=== PATIENT | male | born 1950 | race Caucasian/White ===

== ENCOUNTER 2023-06-03 10:51 | Observation (INO) ==
[2023-06-03] MEDS ORDERED: SODIUM CHLORIDE 0.9% 500 ML IV STA (11:11)
--- NOTE | 2023-06-03 11:16 | Emergency Department Note ---
Impression & Plan Syncope and collapse ADMIT ED Provider Note HPI: History obtained from The patient is a 73-year-old gentleman who presents emergency department after syncopal event. Patient states that he has a history of syncope dating back over a year, he states that oftentimes stimulus such as a cough will incite a syncopal event. Patient states that recently he has had a cold and has been suffering more of these events over the past several weeks. Patient states this morning when he awoke he sat at the side of his bed and coughed several times and then lost consciousness and woke up in bed. Patient states that his syncopal events are often incited by cough, he states he is actually also had them without any type of inciting cough. Patient states that he has fallen multiple times in the past because of this. Patient states that he decided to come in today because it was not going away. On arrival here to the ED the patient is hemodynamically stable, he is in no acute distress on my initial assessment. He denies any chest pain or shortness of breath. ROS: - Per HPI Differential Diagnosis: Arrhythmia to include SVT, atrial fibrillation with RVR, ventricular tachycardia, high degree heart block, sinus arrest, vasovagal event, acute coronary syndrome, amongst other potential pathologies. *Outpatient medications and allergy history reviewed. PE: General: Alert HEENT: Normocephalic, trachea midline, mild left orbital swelling with overlying abrasion without any active bleeding Eyes: Extraocular eye movement is intact, no scleral erythema Pulmonary: Clear to auscultation bilaterally, no wheezing Cardio: Regular rate and rhythm GI: Abdomen is soft to palpation : No suprapubic tenderness MSK: No evidence of trauma or malformation of the extremities, no edema Skin: No evidence of rash Neuro: Alert, no focal deficits Psychiatric: Cooperative INDEPENDENT INTERPRETATIONS: cafeteria monitor: (As interpreted by myself): - An order was placed for continuous cardiac monitoring - Patient was noted to be in sinus rhythm with a rate of 65 EKG: (As interpreted by myself): Rate: 67 Rhythm: Sinus rhythm Intervals: PA interval prolonged at 226 ms, otherwise within normal limits ST changes: No ST elevation Time: 1137 Chest x-ray: (As interpreted by myself): No acute disease Interventions provided in ED: -IV fluid bolus Medical Decision Making: Shortly after the patient arrived IV was established and lab work obtained, patient was placed on ekg monitor. Lab work shows leukopenia at 2.94 and anemia with hemoglobin of 8.7. MCV is elevated at 112. Total absolute neutrophil count is 0.97. CMP shows a mild hyponatremia at 134, troponin is negative, no critical electrolyte abnormalities are noted. Viral panel testing is negative. Chest x-ray does not show any evidence of acute pneumonia per my interpretation. CT imaging of the head was obtained that does not show any evidence of any acute process. On my reassessment the patient appears well, given the increasing frequency of his syncopal events I did discuss the case with on-call cardiology for [facility], Dr. Vila, who is in agreement for routine consultation for further workup of the patient's high risk syncope. Patient does state history of coronary artery disease. Patient will also require further workup in regards to macrocytic anemia and leukopenia with neutropenia noted on lab work today. Case and lab work findings were then discussed with the on-call midlevel provider for [facility], Mona Dewitt PA-C, and the patient was placed for admission to the [facility] hospitalist service in stable condition for further management. Consultants/Discussions held with other healthcare providers: -Mona Dewitt PA-C, Hospitalist Service Disposition discussion held by myself with: -Patient Diagnosis: 1. Syncope and collapse, acute 2. Anemia, acute, macrocytic 3. Leukopenia, acute Disposition: ADMIT Rhett Freeman DO Emergency Medicine Past Med/Surg History Medical History (Updated 06/03/23 @ 15:50 by Rhett Freeman DO) CAD (coronary artery disease) Heart attack Surgical History (Updated 05/16/18 @ 11:03 by Ignacio Pisano) History of heart bypass surgery Family History (Updated 06/03/23 @ 14:02 by Rachelle Dewitt PA-C) Father Cancer Colonic polyp Heart disease Social History (Updated 06/03/23 @ 14:02 by Rachelle Dewitt PA-C) Smoking Status: Current every day smoker Hx Alcohol Use: Yes Hx Substance Use: No Feels Safe at Home: Yes Allergies Allergies Allergy/AdvReac Type Severity Reaction Status Date / Time fluvastatin [From Lescol] AdvReac Joint Pain Unverified 05/16/18 12:06 simvastatin [From Zocor] AdvReac Joint Pain Unverified 05/16/18 12:06 Home Meds Home Medications Medication Instructions Recorded Confirmed clopidogrel 75 mg tablet 75 mg PO DAILY 05/16/18 06/03/23 latanoprost 0.005 % eye drops 1 drp ophthalmic (eye) PM 05/16/18 06/03/23 multivitamin 1 tab PO DAILY 05/16/18 06/03/23 rosuvastatin 20 mg tablet 20 mg PO DAILY 05/16/18 06/03/23 amiodarone 200 mg tablet 200 mg PO BID 06/03/23 06/03/23 carvedilol 3.125 mg tablet 3.125 mg PO BID 06/03/23 06/03/23 etodolac 400 mg tablet 400 mg PO BID PRN Other 06/03/23 06/03/23 isosorbide mononitrate 30 mg 30 mg PO DAILY 06/03/23 06/03/23 tablet,extended release 24 hr sildenafil 50 mg tablet 10 mg PO DAILY PRN Other 06/03/23 06/03/23 venlafaxine 150 mg 150 mg PO DAILY 06/03/23 06/03/23 capsule,extended release 24 hr Results & Data (ED) Vital Signs Vital Signs - 24 hr 06/03/23 11:05 06/03/23 11:46 06/03/23 11:50 Temperature 36.4 C L Temperature Source Temporal Artery Scan Pulse Rate 67 62 63 Respiratory Rate 19 12 19 Respiratory Effort / Characteristics Non-Labored Spontaneous Respiratory Depth Normal Blood Pressure 138/58 L 140/62 Blood Pressure Mean 84 88 Pulse Oximetry 98 98 97 Oxygen Delivery Method Room Air Room Air Room Air Sepsis Recent Fever Within 48 Hours No Sepsis New/Unexplained Change in Mental Status No Sepsis Action Taken by Nursing No Action Required 06/03/23 12:30 06/03/23 13:01 Temperature Temperature Source Pulse Rate 64 63 Respiratory Rate 22 18 Respiratory Effort / Characteristics Respiratory Depth Blood Pressure 145/61 H 135/58 L Blood Pressure Mean 118 107 Pulse Oximetry 98 98 Oxygen Delivery Method Room Air Sepsis Recent Fever Within 48 Hours Sepsis New/Unexplained Change in Mental Status Sepsis Action Taken by Nursing Laboratory Data 06/03/23 11:50 06/03/23 11:50 Lab Results 06/03/23 Range/Units 11:50 WBC 2.94 L (4.8-10.8) K/ul RBC 2.17 L (4.70-6.10) M/uL Hgb 8.7 L (14.0-18.0) g/dl Hct 24.3 L (42.0-52.0) % MCV 112.0 H (80.0-100.0) fL MCH 40.1 H (25.0-34.0) pg MCHC 35.8 (32.0-36.0) g/dL RDW Std Deviation 66.9 H (36.4-46.3) fL RDW Coeff of Alejandro 16.5 H (11.5-14.5) % Plt Count 199 (130-400) K/uL MPV 11.4 (9.4-12.4) fL Absolute Nucleated RBC 0.02 (0.00-0.12) K/uL Nucleated RBC % (auto) 0.7 % Neutrophils % (Manual) 33 % Lymphocytes % (Manual) 36 % Monocytes % (Manual) 29 % Eosinophils % (Manual) 2 % Neutrophils # (Manual) 0.97 L (1.40-6.50) K/uL Total Absolute Neuts 0.97 L* (1.4-6.5) K/uL Lymphocytes # (Manual) 1.06 L (1.2-3.4) K/uL Total Abs Lymphocytes 1.06 L (1.2-3.4) K/uL Monocytes # (Manual) 0.85 H (0.11-0.59) K/uL Eosinophils # (Manual) 0.06 (0-0.50) K/uL Blood Smear Review Polychromasia 1+ Macrocytosis Present Tear Drop Cells Occasional PT Cancelled INR Cancelled Sodium 134 L (136-145) mmol/L Potassium 4.7 (3.5-5.1) mmol/L Chloride 101 (98-107) mmol/L Carbon Dioxide 25 (21-32) mmol/L Anion Gap 8 (3-11) BUN 19 (6-23) mg/dl Creatinine 1.15 (0.6-1.4) mg/dl Est Cr Clr Drug Dosing 64.3 ml/min Est GFR ( Amer) 72.8 ml/min Est GFR (Non-Af Amer) 62.8 ml/min BUN/Creatinine Ratio 16.5 (10-20) Glucose 81 (70-99(Fasting)) mg/dl Calcium 8.8 (8.6-10.3) mg/dl Magnesium 2.1 (1.7-2.4) mg/dl Total Bilirubin 0.3 (0.2-1.0) mg/dl AST 29 (13-39) U/L ALT 27 (7-52) U/L Alkaline Phosphatase 57 (34-104) U/L Troponin I High Sens 8.9 (0-20) pg/ml Total Protein 7.5 (6.0-8.3) gm/dl Albumin 4.2 (3.4-5.0) gm/dl Globulin 3.3 (2.5-4.0) gm/dl Albumin/Globulin Ratio 1.3 (0.9-2) Lipase 28 (11-82) U/L Adenovirus (PCR) Not Detected (NotDetected) B. pertussis DNA (PCR) Not Detected (NotDetected) B.parapertussis DNA PCR Not Detected (NotDetected) C. pneumoniae DNA (PCR) Not Detected (NotDetected) Coronavirus OC43 (PCR) Not Detected (NotDetected) Coronavirus HKU1 (PCR) Not Detected (NotDetected) Coronavirus 229E (PCR) Not Detected (NotDetected) SARS-CoV-2 (PCR) Not Detected (NotDetected) Coronavirus NL63 (PCR) Not Detected (NotDetected) Human Metapneumovir PCR Not Detected (NotDetected) Influenza Type A (PCR) Not Detected (NotDetected) Influenza Type B (PCR) Not Detected (NotDetected) M. pneumoniae (PCR) Not Detected (NotDetected) Parainfluenza 1 (PCR) Not Detected (NotDetected) Parainfluenza 2 (PCR) Not Detected (NotDetected) Parainfluenza 3 (PCR) Not Detected (NotDetected) Parainfluenza 4 (PCR) Not Detected (NotDetected) RSV (PCR) Not Detected (NotDetected) Entero/Rhino (PCR) Not Detected (NotDetected) Administered Medications Discontinued Medications Sodium Chloride (Nss) 500 mls @ 999 mls/hr IV .Q31M STA Stop: 06/03/23 11:41 Last Infusion: 06/03/23 12:25 Dose: Infused Documented By: Admin: 06/03/23 11:59 Dose: 999 mls/hr Documented By: JAVIER Imaging Data Radiologist's Impression: Chest X-Ray 06/03/23 11:11 XR chest 1V portable HISTORY: 73 years-old Male Chest pain, nonspecific COMPARISON: 05/16/2018 TECHNIQUE: AP view the chest FINDINGS: Cardiac silhouette is enlarged. Median sternotomy. No pneumothorax, pleural effusion or airspace consolidation. Degenerative changes of the shoulders and spine. IMPRESSION: Cardiomegaly without acute process. ACT 112: Negative or not required by law. The above report was generated using voice recognition software. It may contain grammatical, syntax or spelling errors. Electronically signed by: Jay Vasquez M.D. 06/03/2023 11:[address] 06/03/23 11:12 CT head/brain wo con CLINICAL HISTORY: 73 years-old Male with Fall, hit head, on OAC. Acute head trauma status post fall TECHNIQUE: Multiple axial CT images of the head were obtained without contrast. A dose lowering technique was utilized adhering to the principles of ALARA. CT DOSE: 625.8 mGy.cm COMPARISON: Head CT 05/16/2018 FINDINGS: No acute intracranial hemorrhage, midline shift, intracranial mass, hydrocephalus, territorial ischemia or abnormal extra-axial collection. Involutional changes with chronic microvascular ischemic disease. Cerebrovascular calcifications. The calvarium is intact. Prior bilateral lens repair. The paranasal sinuses, mastoid air cells, and middle ear cavities are clear. IMPRESSION: No acute intracranial abnormality or calvarial fracture. ACT 112: Negative or not required by law. The above report was generated using voice recognition software. It may contain grammatical, syntax or spelling errors. Electronically signed by: Jay Vasquez M.D. 06/03/2023 11:37 AM Discharge Plan Visit Data Chief Complaint: Illness Stated Complaint: COUGHING, SYNCOPE ED Provider: Rhett Freeman Discharge Problem: Syncope and collapse Patient Disposition: Admitted As Inpatient Discharge Instructions Interventions: ED Discharge Assessment Last Done: 06/03/23 15:36
--- NOTE | 2023-06-03 11:38 | CT Scan Report ---
CT head/brain wo con CLINICAL HISTORY: 73 years-old Male with Fall, hit head, on OAC. Acute head trauma status post fall TECHNIQUE: Multiple axial CT images of the head were obtained without contrast. A dose lowering tech nique was utilized adhering to the principles of ALARA. CT DOSE: 625.8 mGy.cm COMPARISON: Head CT 05/16/2018 FINDINGS: No acute intracranial hemorrhage, midline shift, intracranial mass, hydrocephalus, territorial ischem ia or abnormal extra-axial collection. Involutional changes with chronic microvascular ischemic disea se. Cerebrovascular calcifications. The calvarium is intact. Prior bilateral lens repair. The paranasal sinuses, mastoid air cells, and m iddle ear cavities are clear. IMPRESSION: No acute intracranial abnormality or calvarial fracture. ACT 112: Negative or not required by law. The above report was generated using voice recognition software. It may contain grammatical, syntax o r spelling errors. Electronically signed by: Jay Vasquez M.D. 06/03/2023 11:37 AM
--- NOTE | 2023-06-03 11:41 | XRay Report ---
XR chest 1V portable HISTORY: 73 years-old Male Chest pain, nonspecific COMPARISON: 05/16/2018 TECHNIQUE: AP view the chest FINDINGS: Cardiac silhouette is enlarged. Median sternotomy. No pneumothorax, pleural effusion or airspace cons olidation. Degenerative changes of the shoulders and spine. IMPRESSION: Cardiomegaly without acute process. ACT 112: Negative or not required by law. The above report was generated using voice recognition software. It may contain grammatical, syntax o r spelling errors. Electronically signed by: Jay Vasquez M.D. 06/03/2023 11:40 AM
[2023-06-03 12:01] LABS: Hematocrit (blood only) 24.3 % (42.0-52.0); Hemoglobin 8.7 g/dl (14.0-18.0); Mean Corpuscular Hemoglobin 40.1 pg (25.0-34.0); Mean Corpuscular Hgb Conc 35.8 g/dL (32.0-36.0); Mean Platelet Volume 11.4 fL (9.4-12.4); Nucleated RBC # (auto) 0.02 K/uL (0.00-0.12); Nucleated RBC % (auto) 0.7 %; Platelet Count 199 K/uL (130-400); RDW Coefficient of Variation 16.5 % (11.5-14.5); RDW Standard Deviation 66.9 fL (36.4-46.3); Red Blood Count 2.17 M/uL (4.70-6.10); White Blood Count 2.94 K/ul (4.8-10.8)
[2023-06-03 12:17] LABS: Albumin Level 4.2 gm/dl (3.4-5.0); Bilirubin,Total 0.3 mg/dl (0.2-1.0); Calcium 8.8 mg/dl (8.6-10.3); Magnesium 2.1 mg/dl (1.7-2.4); Potassium 4.7 mmol/L (3.5-5.1)
[2023-06-03 12:23] LABS: Albumin Globulin Ratio 1.3 (0.9-2); BUN Creatinine Ratio 16.5 (10-20); Creatinine Clr Calc Pharmacy 64.3 ml/min; Est GFR (African American) 72.8 ml/min; Est GFR (Non-African American) 62.8 ml/min; Globulin 3.3 gm/dl (2.5-4.0); Total Protein 7.5 gm/dl (6.0-8.3)
[2023-06-03 12:28] LABS: Troponin I High Sensitivity 8.9 pg/ml (0-20)
[2023-06-03 13:03] LABS: Adenovirus PCR Not Detected (NotDetected); Bordetella parapertussis PCR Not Detected (NotDetected); Bordetella pertussis PCR Not Detected (NotDetected); Chlamydia pneumoniae PCR Not Detected (NotDetected); Coronavirus 229E PCR Not Detected (NotDetected); Coronavirus CoV-2 (COVID19)PCR Not Detected (NotDetected); Coronavirus HKU1 PCR Not Detected (NotDetected); Coronavirus NL63 PCR Not Detected (NotDetected); Coronavirus OC43PCR Not Detected (NotDetected); Human Metapneumovirus PCR Not Detected (NotDetected); Influenza A PCR Not Detected (NotDetected); Influenza B PCR Not Detected (NotDetected); Mycoplasma pneumoniae PCR Not Detected (NotDetected); Parainfluenza Virus 1 PCR Not Detected (NotDetected); Parainfluenza Virus 2 PCR Not Detected (NotDetected); Parainfluenza Virus 3 PCR Not Detected (NotDetected); Parainfluenza Virus 4 PCR Not Detected (NotDetected); Respiratory Syncytial VirusPCR Not Detected (NotDetected); Rhinovirus/Enterovirus PCR Not Detected (NotDetected)
--- NOTE | 2023-06-03 13:06 | Cardiology Consultation ---
Date of Consultation June 03, 2023 Assessment & Plan (1) Syncope and collapse: (2) CAD (coronary artery disease): (3) Anemia: Plan IMPRESSION: 73-year-old male with longstanding history of syncope induced by coughing and urinating. Recurrent symptoms of in the setting of a viral upper respiratory tract infection. Cardiac workup has been unrevealing thus far. Echo PENDING. PLAN: Syncope: -Syncope caused by stimulus like coughing/urinating-- possibly vasovagal induced. -Per the patient cardiac workup has been unrevealing thus far however will need to obtain records. Will reach out to case management to help with this. -Echocardiogram ordered to rule out structural heart disease and reassess LV systolic function. -Monitor on telemetry for bradycardia arrhythmias/pauses. Will consider patient a high fall risk--should not be left in the restroom alone as urination has also provoked syncopal episodes. -Consider placement of LINQ tomorrow-- will reach out to Dr. Mosley -Monitor renal function and electrolytes. Ensure potassium of 4.0 and mag of 2.0. -Looking at the patient's home medications it appears that he is on 2 beta- blockers including carvedilol and atenolol--would verify with the patient regarding what he is actually taking. Consider holding home beta gwendolyn, HR averaging in the 60s. It also mentions amiodarone on his list, unknown reason for this medication. Patient declined a history of arrhythmia. Anemia: -Hemoglobin of 8.7, unsure what the patient's baseline is, however, he did have blood in the urine a week or so prior. -FOBT ordered to rule out blood in the stools. Further workup of anemia per primary team. Coronary artery disease: -Prior history of PCI's dating back to 1999 and CABG x , 2009. -Stable, no angina. On Plavix, continue for now. Will need to see prior car diology records. Upper respiratory tract infection: -Supportive measures per primary service. Case discussed with Dr. Vila. I spent a total of 40 minutes on the date of service in preparation, delivery, and documentation of the care provided to the patient excluding any time spent in the performance of separately billed services. JODEE Felix Department of Cardiology, [facility] This chart was completed in part utilizing Speech Voice Recognition Software. Grammatical errors, random word insertions, pronoun errors, and incomplete sentences are an occasional consequence of this system due to software limitations, ambient noise, and hardware issues. Any formal questions or concerns about the content, text, or information contained within the body of this dictation should be directly addressed to the provider for clarification. Supervising Physician Co-Signing Physician Notes Supervising Physician Attestation: I have personally performed a history and physical examination on the patient. I agree with the nurse practitioner's findings and plan as documented with the following additions. Subjective: Notes longstanding history of recurrent syncopal episodes dating back to 1.5-to 2 years. He notes that for the last 2 weeks he has had nasal and chest congestion and has had increasing episodes, sometimes up to 6 or 8 episodes per day. Exam: Cardiovascular regular rhythm, no murmurs, no edema Patient with a bruise over his left orbit, but he states this was not due to a loss of consciousness episode Data: Echocardiogram with grade 2 diastolic dysfunction, LVEF normal, 55% EKG performed 06/03/2023 at 11:37 AM revealed sinus rhythm at 67 bpm with first- degree AV block. No significant repolarization changes. Assessment and Plan: Recurrent syncope Anemia Chronic coronary heart disease -Proceed with implantable loop recorder. Tentatively scheduled for afternoon of 06/04/2023. Discussed case with EP. Patient does not need to be n.p.o. for the procedure. -Patient is not sure why he is on amiodarone. He is not familiar with the term atrial fibrillation or PVCs or ventricular tachycardia. He believes this may have been added a month ago. As noted, will request records. Continue carvedilol 3.125 mg twice daily, amiodarone 200 mg twice daily, Imdur, rosuvastatin. DVT prophylaxis: Consider pharmacologic DVT prophylaxis as patient's hospitalization develops I spent a total of 20 minutes on the date of service in preparation, delivery, and documentation of the care provided to this patient, excluding any time spent in the performance of separately billed services. Alvaro Vila, DO History of Present Illness Reason for Consultation: Syncope Requesting Physician: Madeleine Boyer History of Present Illness 73-year-old male who presents to the emergency department after a syncopal event. Patient has a prior history of syncope dating back about 1-1/2 to 2 years. Often times a stimulus such as coughing or urinating will incite a syncopal event. He has been ill with a viral upper respiratory tract infection and has been having increased chest congestion, postnasal drip, and coughing. Subsequently patient has been having more syncopal episodes because of this. Patient woke this morning and sat up on the side of the bed. Notes that he coughed several times and lost consciousness falling back onto the bed. Of note, he had a fall last week or so--fall was due to tripping on ice. He fell and hit his head. His left eye and worship is bruised and has abrasions. This fall was not due to syncope. He did not lose consciousness. He has been following with Dr. Hernandez with cardiology in [place] and has had an extensive workup per the patient. Unfortunately no records are available at this time. Patient states that he recently had an echocardiogram and ambulatory monitor completed. He also had a cardiac catheterization performed in [place] in April, showing [place] vessel disease and 1 out of 3 of his bypass grafts being occluded. He had good collaterals and no stents were placed. He is currently on Plavix monotherapy. Notes that aspirin was recently discontinued. There are plans to have a Linq monitor inserted however no date is set yet. Workup: Viral respiratory panel negative. Other lab work remarkable for anemia with a hemoglobin of 8.7. Mild hyponatremia with a sodium level of 134. Potassium within normal limits. High- sensitivity troponin negative x 1. Chest x-ray and head CT unremarkable. EKG showing sinus rhythm with a first-degree AV block. Blood pressures are controlled. Heart rate in the 60s. Telemetry revealing: Sinus rhythm 60s to 70s. No pauses. Patient currently declines any chest pain. No shortness of breath but felt that this was due to his current chest congestion. No palpitations. Denies lightheadedness or dizziness. No orthopnea, PND, or increased lower extremity edema. No fever, chills. Denies any melena but did see blood in his urine last week. This has since resolved. Denies a history of congestive heart failure, valvular disease, rheumatic fever, or history of arrhythmia. 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 Recently moved back to the area. Past medical history: History of cough induced syncope Coronary artery disease, history of multiple PCI's dating back to 1999. Status post CABG x 2009 Repeat cardiac cath 04/2023--no PCI took place at that time Hypertension Dyslipidemia Allergies Allergy/AdvReac Type Severity Reaction Status Date / Time fluvastatin [From Lescol] AdvReac Joint Pain Unverified 05/16/18 12:06 simvastatin [From Zocor] AdvReac Joint Pain Unverified 05/16/18 12:06 Home Medications Medication Instructions Recorded Confirmed Type clopidogrel 75 mg tablet 75 mg PO DAILY 05/16/18 06/03/23 History latanoprost 0.005 % eye drops 1 drp ophthalmic (eye) PM 05/16/18 06/03/23 History multivitamin 1 tab PO DAILY 05/16/18 06/03/23 History rosuvastatin 20 mg tablet 20 mg PO DAILY 05/16/18 06/03/23 History amiodarone 200 mg tablet 200 mg PO BID 06/03/23 06/03/23 History carvedilol 3.125 mg tablet 3.125 mg PO BID 06/03/23 06/03/23 History etodolac 400 mg tablet 400 mg PO BID PRN Other 06/03/23 06/03/23 History isosorbide mononitrate 30 mg 30 mg PO DAILY 06/03/23 06/03/23 History tablet,extended release 24 hr sildenafil 50 mg tablet 10 mg PO DAILY PRN Other 06/03/23 06/03/23 History venlafaxine 150 mg 150 mg PO DAILY 06/03/23 06/03/23 History capsule,extended release 24 hr Patient History Medical History (Updated 06/03/23 @ 15:50 by Rhett Freeman DO) CAD (coronary artery disease) Heart attack Surgical History (Updated 05/16/18 @ 11:03 by Ignacio Pisano) History of heart bypass surgery Family History (Updated 06/03/23 @ 14:02 by Rachelle Dewitt PA-C) Father Cancer Colonic polyp Heart disease Social History (Updated 01/23/24 @ 14:02 by Rachelle Dewitt PA-C) Smoking Status: Current every day smoker Hx Alcohol Use: Yes Hx Substance Use: No Feels Safe at Home: Yes Review of Systems Review of Systems: All systems reviewed & are unremarkable except as noted in HPI & below Physical Exam Constitutional: WD/WN, vitals as above no acute distress Neck: normal visual inspection and trachea midline Respiratory: normal respiratory effort and + cough; no respiratory distress Auscultation: + wheezes; no rales and no rhonchi Cardiovascular: Rate/Rhythm: regular rate and regular rhythm Heart Sounds: normal S1 and normal S2; no murmur Vessels: no JVD Extremities: no edema Gastrointestinal (Abdomen): normal bowel sounds, soft, nontender, no hepatosplenomegaly Skin: + ecchymosis (left eye and worship. ) Trauma: + abrasion (left eye and worship.) Neurologic: PERRL, EOMI, accommodation nl, no face palsy, no dysarthria Psychiatric: Orientation: alert and oriented x 3 Results & Data Vital Signs (Past 12 Hours) Vital Signs Temp Pulse Resp BP Pulse Ox O2 Del Method 06/03/23 11:50 63 19 140/62 97 Room Air 06/03/23 11:46 62 12 98 Room Air 06/03/23 11:05 36.4 C L 67 19 138/58 L 98 Room Air Laboratory Results Cardiac Enzymes 06/03/23 Range/Units 11:50 AST 29 (13-39) U/L Troponin I High Sens 8.9 (0-20) pg/ml Coagulation 06/03/23 Range/Units 11:50 PT Cancelled CBC 06/03/23 Range/Units 11:50 WBC 2.94 L (4.8-10.8) K/ul RBC 2.17 L (4.70-6.10) M/uL Hgb 8.7 L (14.0-18.0) g/dl Hct 24.3 L (42.0-52.0) % Plt Count 199 (130-400) K/uL Comprehensive Metabolic Panel 06/03/23 Range/Units 11:50 Sodium 134 L (136-145) mmol/L Potassium 4.7 (3.5-5.1) mmol/L Chloride 101 (98-107) mmol/L Carbon Dioxide 25 (21-32) mmol/L BUN 19 (6-23) mg/dl Creatinine 1.15 (0.6-1.4) mg/dl Glucose 81 (70-99(Fasting)) mg/dl Calcium 8.8 (8.6-10.3) mg/dl AST 29 (13-39) U/L ALT 27 (7-52) U/L Alkaline Phosphatase 57 (34-104) U/L Total Protein 7.5 (6.0-8.3) gm/dl Albumin 4.2 (3.4-5.0) gm/dl Intake and Output 06/02/23 06/03/23 06/03/23 22:59 06:59 14:59 Intake Total 500 / 500 Balance 500 / 500 Intake: IV 500 / 500 Sodium Chloride 0.9% 500 ml @ 500 / 500 999 mls/hr IV .Q31M STA Rx#: [id number] Other: Weight 96.12 kg Weight Measurement Method Chair Scale Patient Weight 06/04/23 06:59 Weight 96.12 kg (2) CAD (coronary artery disease) Associated angina: without angina Coronary Disease-Associated Artery/Lesion type: [place] artery [place] vs. transplanted heart: [place] heart Qualified Code(s): I25.10 - Atherosclerotic heart disease of [place] coronary artery without angina pectoris (3) Anemia Anemia type: unspecified type Qualified Code(s): D64.9 - Anemia, unspecified
[2023-06-03 13:14] LABS: ALC (manual) 1.06 K/uL (1.2-3.4); ANC (manual) 0.97 K/uL (1.4-6.5); Eosinophils # (manual) 0.06 K/uL (0-0.50); Eosinophils % (manual) 2 %; Lymphocytes # (manual) 1.06 K/uL (1.2-3.4); Lymphocytes % (manual) 36 %; Macrocytosis Present; Monocytes # (manual) 0.85 K/uL (0.11-0.59); Monocytes % (manual) 29 %; Neutrophils # (manual) 0.97 K/uL (1.40-6.50); Neutrophils % (manual) 33 %
[2023-06-03 13:24] LABS: Polychromasia 1+; Tear Drop Cells Occasional
--- NOTE | 2023-06-03 13:24 | History & Physical Report ---
Date of Service June 03, 2023 Assessment & Plan (1) Syncope and collapse: (2) CAD (coronary artery disease): Plan: - Admit to med tele - Obtain 2 D echo - Trend troponin, intial is negative - Consult cardiology, Pt reports recently being followed by [facility], however is preferring to switch to [facility] cardiology locally, will ask for H IM consultation to see if can obtain records from the facility - Home meds: Carvedilol 3.125 mg twice daily, amiodarone 200 mg daily, Plavix 75 mg daily, rosuvastatin 20 mg daily and isosorbide mononitrate 30 mg daily - Check A1C and lipids with am albs - EKG reviewed personally and does not show any acute abnormalities. - Likely exacerbated by recent upper respiratory virus, RVP bio fire is negative today, will treat with supportive symptomatic care with Mucinex, Tessalon Perles, Hycodan cough syrup if necessary can be ordered - CXR reviewed - Will obtain EEG with hx of shaking/tonic seizure like activity, consider neurological eval pending pt course (3) Anemia: Plan: - Hgb of 8.7, unknown baseline - MCV is elevated on arrival, anemia present, lymphopenia - Peripheral smear completed by pathologist - concern for underlying MDS? Will check iron studies -Consult hematology - Hx of alcohol use and smoking - cessation was encouraged at bedside - Follow thiamine, folic acid levels DVT ppx: teds, scds Lines: 2 PIV FEN/GI: Allow HH diet CODE: FULL Dispo: From home, likely to remain in the hospital x 1-2 days History of Present Illness Chief Complaint: Syncopal episodes Primary Care Provider: Frederick Yeager MD This is a 73 yo M with PMHX of CAD s/p triple Bypass in 2009 with cardiac stents, hx of recent cardiac catheterization done in Apr 2023, hx of holter monitor in place about 1 year ago without acute abnormalities seen. Other PMHx of BENNIE, did not tolerate CPAP due to claustrophobia and not tolerating it. He is on rate controlling medication however denies any history of irregular heart rate. Pt notes has been sick with respiratory illness over the past 2 weeks. He describes syncopal episodes happening intermittently over the past year, about 1x per week, where he loses consciousness. This has become much more frequent over the past 2 weeks, upwards of 5x per day. He admits to dizziness sensation most time with standing. It occurs moreso when goes from sitting to standing position, occasionally happens when he is sitting down. He describes episodes happening when he is sitting down, seeming more like a seizure, where he is shaking and takes a while to relax. He does not know how long these episodes last, they have been witnessed but he hasn't asked people to tell him how long it lasts for. Pt admits to large about of phlegm with cough with this respiratory symptoms. He denies fever, chills or sweats, but hasn't taken his temperature. He has previously been told he has BENNIE however does not tolerate CPAP. Patient also notes that he has had some issues with swallowing and sometimes feel that food goes down the wrong tube, this has not happened recently though. He lives at home by himself. He admits to a fall that happened 5 days ago, hit his left side of his face as well as his left knee due to syncopal episode, but did not seek out medical care at that time. He has had recent colonoscopy with polyps, 8 were removed recently, the last one was about 2 years ago at [facility]. Notes his father from colon cancer and therefore gets screened as directed by GI physician. Family Hx Father: Heart disease, [place], colon cancer Social Hx: Current tobacco use with smoking cigarettes, 0.5 packs per week, prior to this was 0.5 ppd. Alcohol use hx with 5-6 beers per day, 5 days per week, reduced to drinking 5-6 beers 2 days per week. This reduction happened since respiratory symptoms started 2 weeks ago. Allergies Allergy/AdvReac Type Severity Reaction Status Date / Time fluvastatin [From Lescol] AdvReac Joint Pain Unverified 05/16/18 12:06 simvastatin [From Zocor] AdvReac Joint Pain Unverified 05/16/18 12:06 Home Medications Medication Instructions Recorded Confirmed Type clopidogrel 75 mg tablet 75 mg PO DAILY 05/16/18 06/03/23 History latanoprost 0.005 % eye drops 1 drp ophthalmic (eye) PM 05/16/18 06/03/23 History multivitamin 1 tab PO DAILY 05/16/18 06/03/23 History rosuvastatin 20 mg tablet 20 mg PO DAILY 05/16/18 06/03/23 History amiodarone 200 mg tablet 200 mg PO BID 06/03/23 06/03/23 History carvedilol 3.125 mg tablet 3.125 mg PO BID 06/03/23 06/03/23 History etodolac 400 mg tablet 400 mg PO BID PRN Other 06/03/23 06/03/23 History isosorbide mononitrate 30 mg 30 mg PO DAILY 06/03/23 06/03/23 History tablet,extended release 24 hr sildenafil 50 mg tablet 10 mg PO DAILY PRN Other 06/03/23 06/03/23 History venlafaxine 150 mg 150 mg PO DAILY 06/03/23 06/03/23 History capsule,extended release 24 hr Past Med/Surg History Medical History (Updated 06/03/23 @ 13:42 by JODEE Monroe) CAD (coronary artery disease) Heart attack Surgical History (Updated 05/16/18 @ 11:03 by Ignacio Pisano) History of heart bypass surgery Family History (Updated 06/03/23 @ 14:02 by Rachelle Dewitt PA-C) Father Cancer Colonic polyp Heart disease Social History (Updated 06/03/23 @ 14:02 by Rachelle Dewitt PA-C) Smoking Status: Current every day smoker Hx Alcohol Use: Yes Hx Substance Use: No Feels Safe at Home: Yes Review of Systems Review of Systems: Constitutional: No fever, sweats or chills Eyes: No diplopia, no worsening or blurred vision, uses eyedrops ENT: + Hard of hearing hearing, no trouble swallowing Respiratory: + As per HPI, recent productive cough,sputum, no dyspnea at rest or on exertion Cardiovascular: No chest pain, tightness or palpitations Abdomen: No pain, nausea, vomiting, diarrhea or constipation Musculoskeletal: No joint pain, calf pain, swelling Neurologic: No weakness, numbness/tingling, or balance problems, + fall 5 days ago due to syncopal episode Psychiatric: No anxiety or depression Skin: No rash or itch Physical Exam Physical Exam: Please refer to attending addendum Results & Data Results & Data Vital Signs (Past 12 Hours) Vital Signs Temp Pulse Resp BP Pulse Ox O2 Del Method 06/03/23 13:01 63 18 135/58 L 98 06/03/23 12:30 64 22 145/61 H 98 Room Air 06/03/23 11:50 63 19 140/62 97 Room Air 06/03/23 11:46 62 12 98 Room Air 06/03/23 11:05 36.4 C L 67 19 138/58 L 98 Room Air Laboratory Results 06/03/23 11:50 WBC 2.94 L RBC 2.17 L Hgb 8.7 L Hct 24.3 L MCV 112.0 H MCH 40.1 H MCHC 35.8 RDW Std Deviation 66.9 H RDW Coeff of Alejandro 16.5 H Plt Count 199 MPV 11.4 Absolute Nucleated RBC 0.02 Nucleated RBC % (auto) 0.7 Neutrophils % (Manual) 33 Lymphocytes % (Manual) 36 Monocytes % (Manual) 29 Eosinophils % (Manual) 2 Neutrophils # (Manual) 0.97 L Total Absolute Neuts 0.97 L* Lymphocytes # (Manual) 1.06 L Total Abs Lymphocytes 1.06 L Monocytes # (Manual) 0.85 H Eosinophils # (Manual) 0.06 Macrocytosis Present PT Cancelled INR Cancelled Sodium 134 L Potassium 4.7 Chloride 101 Carbon Dioxide 25 Anion Gap 8 BUN 19 Creatinine 1.15 Est Cr Clr Drug Dosing 64.3 Est GFR ( Amer) 72.8 Est GFR (Non-Af Amer) 62.8 BUN/Creatinine Ratio 16.5 Glucose 81 Calcium 8.8 Magnesium 2.1 Total Bilirubin 0.3 AST 29 ALT 27 Alkaline Phosphatase 57 Troponin I High Sens 8.9 Total Protein 7.5 Albumin 4.2 Globulin 3.3 Albumin/Globulin Ratio 1.3 Lipase 28 Adenovirus (PCR) Not Detected B. pertussis DNA (PCR) Not Detected B.parapertussis DNA PCR Not Detected C. pneumoniae DNA (PCR) Not Detected Coronavirus OC43 (PCR) Not Detected Coronavirus HKU1 (PCR) Not Detected Coronavirus 229E (PCR) Not Detected SARS-CoV-2 (PCR) Not Detected Coronavirus NL63 (PCR) Not Detected Human Metapneumovir PCR Not Detected Influenza Type A (PCR) Not Detected Influenza Type B (PCR) Not Detected M. pneumoniae (PCR) Not Detected Parainfluenza 1 (PCR) Not Detected Parainfluenza 2 (PCR) Not Detected Parainfluenza 3 (PCR) Not Detected Parainfluenza 4 (PCR) Not Detected RSV (PCR) Not Detected Entero/Rhino (PCR) Not Detected Diagnostic Findings Chest X-Ray 06/03/23 11:11 XR chest 1V portable HISTORY: 73 years-old Male Chest pain, nonspecific COMPARISON: 05/16/2018 TECHNIQUE: AP view the chest FINDINGS: Cardiac silhouette is enlarged. Median sternotomy. No pneumothorax, pleural effusion or airspace consolidation. Degenerative changes of the shoulders and spine. IMPRESSION: Cardiomegaly without acute process. ACT 112: Negative or not required by law. The above report was generated using voice recognition software. It may contain grammatical, syntax or spelling errors. Electronically signed by: Jay Vasquez M.D. 06/03/2023 11:[address] 06/03/23 11:12 CT head/brain wo con CLINICAL HISTORY: 73 years-old Male with Fall, hit head, on OAC. Acute head trauma status post fall TECHNIQUE: Multiple axial CT images of the head were obtained without contrast. A dose lowering technique was utilized adhering to the principles of ALARA. CT DOSE: 625.8 mGy.cm COMPARISON: Head CT 05/16/2018 FINDINGS: No acute intracranial hemorrhage, midline shift, intracranial mass, hydrocephalus, territorial ischemia or abnormal extra-axial collection. Involutional changes with chronic microvascular ischemic disease. Cerebrovascular calcifications. The calvarium is intact. Prior bilateral lens repair. The paranasal sinuses, mastoid air cells, and middle ear cavities are clear. IMPRESSION: No acute intracranial abnormality or calvarial fracture. ACT 112: Negative or not required by law. The above report was generated using voice recognition software. It may contain grammatical, syntax or spelling errors. Electronically signed by: Jay Vasquez M.D. 06/03/2023 11:37 AM ECG Additional Comments: Reviewed personally, does not show any signs of ST wave inversions or ischemia currently, no previous EKG to review presently. Code Status & VTE Plan Code Status Full code-discussed with the patient at bedside Supervising Physician Co-Signing Physician Notes Patient seen and examined. 73-year-old male with history of CAD status post stents and bypass, BENNIE not tolerant to CPAP who presents for syncopal episode that has been going on for about 1.5 years but had worsened in the past 2 weeks with upper respiratory symptoms [sinus congestion, cough]. Used to have syncopal episode about once a week but now multiple times a day. Mostly triggered by getting up coughing. Reports orthostatic dizziness. Other review of systems related to weak urinary stream and feeling of incomplete emptying General: Obese. Eyes: PERRL, conjunctivae normal, not pale, anicteric sclerae, EOM intact bilaterally, Bruise around left eye ENMT: External ear and nose normal, oropharynx normal. Hearing aid in situ Respiratory: Normal respiratory effort, no respiratory distress, lungs clear to auscultation, no crackles and no wheezes Cardiovascular: RRR S1 S2 Gastrointestinal (Abdomen): Abdomen is not distended, soft, non-tender to palpation, no guarding, no palpable hepatosplenomegaly, normal bowel sounds Musculoskeletal: No pedal edema Neurologic: Alert and oriented x 3, No focal weakness, sensation grossly intact Psychiatric: Euthymic affect Labs notable for leukopenia with WBC of 2.9, anemia, hemoglobin of 8.7, MCV of 112, sodium of 134 CT head did not show any fracture or acute intracranial abnormality Chest x-ray noted cardiomegaly without any acute abnormality. Surgery PCR was negative Syncopal episode URI Cardiology evaluation noted. Follow-up echo Reports recent cardiac catheterization in April which was reportedly showing [place] vessel disease and 1 out of 3 of his bypass grafts occluded with good collaterals and no stents were placed. Cardiology planning for possible EP evaluation and possible Linq device insertion. Patient has leukopenia, microcytic anemia. Will get B12 and folate levels. Hematology consult Tele monitor Patient reports he feels some of the episode feels like a seizure with stiffness. He lives alone Get EEG I spent a total of 40 minutes coordinating, documenting and providing care for this patient excluding time spent in performance of separately billed services
[2023-06-03] MEDS ORDERED: ACETAMINOPHEN 325 MG TAB PO PRN (15:35)
[2023-06-03] MEDS ORDERED: ALBUTEROL 0.083% NEBU SOLN 3 ML VIAL NEB PRN (15:35)
[2023-06-03] MEDS ORDERED: HYDROcodone/HOMATROPINE SYRUP 5MG/1.5MG 5ML UDP PO PRN (15:35)
[2023-06-03] MEDS ORDERED: ONDANSETRON INJ 2 MG/ML 2 ML VIAL IV PRN (15:35)
--- NOTE | 2023-06-03 16:27 | Oncology Consultation ---
Date of Consultation June 03, 2023 Assessment & Plan (1) Macrocytic anemia: I have reviewed the blood work done till date and appreciate our hospital internal medicine team's due diligence for the workup which has been performed. My additional recommendation would be to get hemolytic labs as primary hemolysis is a cause of hemolytic anemia. I would recommend checking a reticulocyte count, Annia test, LDH level. During my brief review it does not look like that the patient has hemolysis as he does not have elevated bilirubin level and LDH level was not elevated. The other strong consideration would be that his microcytic anemia is primarily related to heavy alcohol use as alcohol can be severely myelosuppressive and myelotoxic if taken in large enough amounts. I would also check for micronutrient deficiency though it is unlikely as his B12 and folate level is normal speech tells me that his nutritional status is definitely not poor. At this point I would not recommend a bone marrow biopsy as alcohol seems to be a cause which is precipitated severe anemia. I would recommend continued o bservation of his CBC, if he continues to progressively decline and hemoglobin drops and white count drops then we may consider a bone marrow biopsy. Plan Thank you for this interesting hematological consult, hematology will continue to follow the patient and make appropriate recommendations. History of Present Illness Attending Physician: Maria Isabel Danielle MD History of Present Illness The patient is a very pleasant 73-year-old man with a past medical history of coronary artery disease, triple bypass who came to the hospital with repeated syncopal episodes. This has been happening intermittently over the last 1 year, and he loses in consciousness. Sometimes he will fall down. During this time he is also been noticing some cough and phlegm. He was admitted to the hospital and was noted to have severe anemia with a hemoglobin level of 8.7 g/dL. He had associated microcytosis with an MCV of 112. A basic hematological workup was performed including serum iron indicis which revealed serum iron of 150, iron saturation of 186, ferritin of 394. Vitamin B12 level was 399, folate level was 22.25. He underwent a respiratory viral panel which was negative. Hematology has been consulted to assist in management with this patient with severe microcytic anemia, leukopenia as his absolute neutrophil count during admission was 0.97. Reportedly the patient is an alcoholic,. He drinks 5-6 beers every day. He has been drinking at least till a couple of weeks ago. On further questioning he also informed me that he continues to drink well a few days ago. Allergies Allergy/AdvReac Type Severity Reaction Status Date / Time fluvastatin [From Lescol] AdvReac Joint Pain Unverified 05/16/18 12:06 simvastatin [From Zocor] AdvReac Joint Pain Unverified 05/16/18 12:06 Home Medications Medication Instructions Recorded Confirmed Type clopidogrel 75 mg tablet 75 mg PO DAILY 05/16/18 06/03/23 History latanoprost 0.005 % eye drops 1 drp ophthalmic (eye) PM 05/16/18 06/03/23 History multivitamin 1 tab PO DAILY 05/16/18 06/03/23 History rosuvastatin 20 mg tablet 20 mg PO DAILY 05/16/18 06/03/23 History amiodarone 200 mg tablet 200 mg PO BID 06/03/23 06/03/23 History carvedilol 3.125 mg tablet 3.125 mg PO BID 06/03/23 06/03/23 History etodolac 400 mg tablet 400 mg PO BID PRN Other 06/03/23 06/03/23 History isosorbide mononitrate 30 mg 30 mg PO DAILY 06/03/23 06/03/23 History tablet,extended release 24 hr sildenafil 50 mg tablet 10 mg PO DAILY PRN Other 06/03/23 06/03/23 History venlafaxine 150 mg 150 mg PO DAILY 06/03/23 06/03/23 History capsule,extended release 24 hr Patient History Medical History (Updated 06/03/23 @ 19:34 by Jung Werner MD) CAD (coronary artery disease) Heart attack Surgical History (Updated 05/16/18 @ 11:03 by Ignacio Pisano) History of heart bypass surgery Family History (Updated 06/03/23 @ 14:02 by Rachelle Dewitt PA-C) Father Cancer Colonic polyp Heart disease Social History (Updated 06/03/23 @ 14:02 by Rachelle Dewitt PA-C) Smoking Status: Never smoker Second Hand Exposure: No; Do You Dip or Chew Tobacco: No; Tobacco Cessation Education Requested by Patient: No Hx Alcohol Use: No Hx Substance Use: No Preferred Language: Irish Communication Ability: Effective Intake Manager Required: No Beliefs That Will Affect Care: None Feels Safe at Home: Yes Safety Concerns: Feels Safe At This Time Assistive Devices: None Results & Data Vital Signs (Past 12 Hours) Vital Signs Temp Pulse Resp BP BP Pulse Ox O2 Del Method 06/03/23 15:46 66 06/03/23 15:30 36.8 C 16 185/71 H 99 Room Air 06/03/23 13:01 63 18 135/58 L 98 06/03/23 12:30 64 22 145/61 H 98 Room Air 06/03/23 11:50 63 19 140/62 97 Room Air 06/03/23 11:46 62 12 98 Room Air 06/03/23 11:05 36.4 C L 67 19 138/58 L 98 Room Air
[2023-06-03 17:06] LABS: Ferritin 394.2 ng/ml (8-388)
[2023-06-03 17:12] LABS: Folate (Folic Acid),Ser orPlas 22.25 ng/ml (>5.38)
[2023-06-03] MEDS: AMIODARONE 200 MG TAB PO SCH (19:35)
[2023-06-03] MEDS: carvediloL 3.125 MG TAB PO SCH (19:36)
[2023-06-03] MEDS: BENZONATATE 100 MG CAPSULE PO SCH (19:36)
[2023-06-03] MEDS: LATANOPROST 0.005% OP SOLN 2.5 ML BTL OP SCH (19:36)
[2023-06-03] MEDS: guaiFENesin 600 MG TABCR PO SCH (19:36)
[2023-06-03] MEDS ORDERED: ISOSORBIDE MONO EXTENDED REL 30 MG TABCR PO ONE (19:53)
[2023-06-04] MEDS ORDERED: LIDOCAINE 1% LOCAL 20 ML VIAL ONE (06:55)
[2023-06-04 07:04] LABS: Mean Corpuscular Hgb Conc 36.4 g/dL (32.0-36.0); Mean Platelet Volume 11.4 fL (9.4-12.4); Nucleated RBC # (auto) 0.02 K/uL (0.00-0.12); Nucleated RBC % (auto) 0.7 %; Platelet Count 174 K/uL (130-400); RDW Coefficient of Variation 16.3 % (11.5-14.5); RDW Standard Deviation 65.2 fL (36.4-46.3); White Blood Count 2.81 K/ul (4.8-10.8)
[2023-06-04 07:41] LABS: Estimated Average Glucose 137 mg/dl; Hemoglobin A1C 6.4 % (4.5-5.6)
[2023-06-04 07:56] LABS: Calcium 8.9 mg/dl (8.6-10.3); Magnesium 2.2 mg/dl (1.7-2.4); Potassium 4.3 mmol/L (3.5-5.1)
[2023-06-04 08:02] LABS: BUN Creatinine Ratio 14.8 (10-20); Chol HDL Ratio 2.3 (0-5); Est GFR (African American) 72.8 ml/min; Est GFR (Non-African American) 62.8 ml/min; Phosphorus 2.8 mg/dl (2.5-4.9)
[2023-06-04] MEDS: AMIODARONE 200 MG TAB PO SCH ×2 (08:38→20:09)
[2023-06-04] MEDS: carvediloL 3.125 MG TAB PO SCH ×2 (08:38→20:09)
[2023-06-04] MEDS: CLOPIDOGREL BISULFATE 75 MG TAB PO SCH (08:38)
[2023-06-04] MEDS: ROSUVASTATIN CALCIUM 20 MG TAB PO SCH (08:38)
[2023-06-04] MEDS: MULTIVITAMIN TAB PO SCH (08:38)
[2023-06-04] MEDS: ISOSORBIDE MONO EXTENDED REL 30 MG TABCR PO SCH (08:38)
[2023-06-04] MEDS: VENLAFAXINE HCL XR 150 MG CAPXR PO SCH (08:39)
[2023-06-04] MEDS: guaiFENesin 600 MG TABCR PO SCH ×2 (08:39→20:08)
[2023-06-04] MEDS: BENZONATATE 100 MG CAPSULE PO SCH ×3 (08:39→20:08)
[2023-06-04 09:39] LABS: Reticulocyte % 2.7 % (0.50-2.00); Reticulocytes # 0.06 10^6/uL (0.020-0.100)
--- NOTE | 2023-06-04 10:47 | History & Physical Bridge Note ---
Date of Service June 04, 2023 History & Physical Bridge Note I have examined the patient, reviewed the History & Physical and in the interval since the performance of the History & Physical I have noted the following changes of clinical significance: pt with syncope recommended a loop implant prior to hospital discharge; discussed the procedure and risk which include but not limited to bleeding and infection; he expressed an understanding and wished to proceed. consents signed
[2023-06-04] MEDS ORDERED: ceFAZolin 330 MG/ML 1 GM VIAL ONE (11:18)
[2023-06-04] MEDS ORDERED: Ativan PO Alcohol Withdrawal--Active Protocol PO PRN (13:21)
[2023-06-04] MEDS ORDERED: LORazepam 1 MG TAB PO PRN ×2 (13:21)
[2023-06-04] MEDS: THIAMINE HCL 100 MG TAB PO SCH (13:58)
[2023-06-04] MEDS: FOLIC ACID 400 MCG TAB PO SCH (13:58)
--- NOTE | 2023-06-04 15:14 | Operative Report ---
Post Operative Report Pre-OP diagnosis: Recurrent syncope Post Op Diagnosis: Same Procedure: Loop implant DOS: 06/04/2023 Surgeon: Dr. Mosley Anesthesia: 15cc 1% lidocaine Blood Loss: 2cc Complications: None Condition: Stable Abx: ancef Specimen: None Indications: 73yo M PMH recurrent syncope, CAD. Due to patient's recurrent syncope he was recommended a Loop insertion prior to hospital discharge. Description of procedure: Pt was brought into the procedure room and connected to cardiac monitoring. A time out was performed identifying patient and procedure correctly. The pt received antibiotic prior to incision. The patient was prepped and draped in a sterile fashion over the left sternal border. Then 20 cc of 1% lidocaine where given in the 4th intercostal space to the left of the sternal border just caudal to the prior linq site. Then using the Loop insertion tool and kit the loop was inserted. Then a 4.0 vicryl interrupted suture followed by a running stitch was placed to approximate the incision and dermabond was placed. Equipment: Device: [email or web address] DBA [id number]-QCoefficient EL+ [id number]; SN: [id number] Parameters: Tachy 150bpm 15 beats Mundo 40bpm Pause: 3 seconds Implant Measurements: R waves 0.47mV Impression: Successful new Loop insertion due to recurrent syncope Plan: Device and wound check next week
--- NOTE | 2023-06-04 16:57 | Hospitalist Progress Note ---
Date of Service June 04, 2023 Assessment & Plan (1) Syncope and collapse: Plan: Recurrent syncope and collapse ? Vasovagal --CT Head:No acute intracranial abnormality or calvarial fracture. --ECHO: Left ventricle wall motion is normal. EF 55%. Mild mitral regurgitation. Findings do not suggest pulmonary hypertension. Arctic root diameter is normal. Proximal ascending aorta is mildly dilated at 3.8 cm. Grade 2 diastolic dysfunction. S/P new Loop insertion by on 06/04/23 Normal orthostatics Appreciate cardiology input Monitor and replace electrolytes as needed Continue carvedilol, amiodarone, Imdur, statin Needs follow-up with cardiology as outpatient EEG pending (2) CAD (coronary artery disease): Plan: H/O CABG Continue home medications Cardiology on board Recent URI --CXR:Cardiomegaly without acute process. 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 MDS No acute bleeding issues Normal iron panel, thiamine, folate levels Annia test negative Reticulocyte count 2.7 Normal LDH, bilirubin levels Peripheral smear concerning for MDS May need bone marrow biopsy eventually Appreciate oncology input Monitor CBC DVT Px: SCDs for now CODE STATUS FULL CODE Admission and Anticipated Discharge Date Admission Date: June 03, 2023 Subjective Patient is seen and examined at bedside Offers no new complaints this morning Patient had new loop insertion for recurrent syncope this morning Patient had a brief stiffening of extremities overnight Denies any chest pain, dyspnea, dizziness, nausea, vomiting, abdominal pain today Review of Systems Review of Systems: All systems reviewed & are unremarkable except as noted in Subjective Physical Exam Physical Exam: Physical Exam: Vitals signs as noted above General Appearance:Obese, no apparent distress Head: normocephalic, Atraumatic Eyes: normal inspection, EOMI Neck: supple, Trachea midline Respiratory/Chest: Normal breath sounds, CTA, No accessory muscle use Cardiovascular: S1, S2, No murmur Abdomen/GI:Soft, Non tender, Bowel sounds present Extremities/Musculoskeletal:normal inspection, no edema Neurologic/Psych:AAOX3, grossly no focal neurological deficits Skin: normal color, warm, +CABG scar Results & Data Results & Data Vital Signs (Past 12 Hours) Vital Signs Temp Pulse Pulse Resp BP Pulse Ox O2 Del Method 06/04/23 15:23 36.4 C L 60 18 147/68 H 97 Room Air 06/04/23 11:57 36.6 C 70 18 160/72 H 92 Room Air 06/04/23 11:39 61 14 158/75 H 100 Room Air 06/04/23 11:34 59 L 14 153/71 H 100 Room Air 06/04/23 10:40 62 18 112/76 97 Room Air 06/04/23 08:11 36.6 C 18 163/80 H 96 Room Air 06/04/23 07:53 63 Laboratory Results Short CBC 06/04/23 Range/Units 06:36 WBC 2.81 L (4.8-10.8) K/ul Hgb 8.0 L (14.0-18.0) g/dl Hct 22.0 L (42.0-52.0) % Plt Count 174 (130-400) K/uL BMP 06/04/23 06:36 Sodium 135 L Potassium 4.3 Chloride 103 Carbon Dioxide 28 BUN 17 Creatinine 1.15 Glucose 103 H Calcium 8.9 (2) CAD (coronary artery disease) Coronary Disease-Associated Artery/Lesion type: [place] artery [place] vs. transplanted heart: [place] heart Associated angina: without angina Qualified Code(s): I25.10 - Atherosclerotic heart disease of [place] coronary artery without angina pectoris (3) Anemia Anemia type: unspecified type Qualified Code(s): D64.9 - Anemia, unspecified
--- NOTE | 2023-06-04 17:23 | Cardiology Progress Note ---
Date of Service June 04, 2023 Assessment & Plan (1) Syncope and collapse: (2) CAD (coronary artery disease): (3) Anemia: Plan IMPRESSION: 73-year-old male with longstanding history of syncope induced by coughing and urinating. Recurrent symptoms of in the setting of a viral upper respiratory tract infection. Cardiac workup has been unrevealing thus far. Echo PENDING. PLAN: Syncope: -Syncope caused by stimulus like coughing/urinating-- possibly vasovagal induced. Anemia: -Hemoglobin of 8.7, unsure what the patient's baseline is, however, he did have blood in the urine a week or so prior. -FOBT ordered to rule out blood in the stools. Further workup of anemia per primary team. Coronary artery disease: -Prior history of PCI's dating back to 1999 and CABG x , 2009. -Stable, no angina. On Plavix, continue for now. Will need to see prior cardiology records. Upper respiratory tract infection: -Supportive measures per primary service. 06/04/2023 Due to recurrent syncope patient underwent Linq event monitor insertion. No arrhythmias since hospitalization. Tolerating current medications. Increase activities in hospital Close cardiology follow-up post hospital discharge Other medical issues as being assessed This chart was completed in part utilizing Speech Voice Recognition Software. Grammatical errors, random word insertions, pronoun errors, and incomplete sentences are an occasional consequence of this system due to software limitations, ambient noise, and hardware issues. Any formal questions or concerns about the content, text, or information contained within the body of this dictation should be directly addressed to the provider for clarification. Admission and Anticipated Discharge Date Admission Date: June 03, 2023 Subjective Patient seen and personally examined. No arrhythmias on telemetry. Underwent Linq insertion earlier today with good tolerance. No chest pains or shortness of breath. Blood pressure is well-controlled. Incision intact Physical Exam Constitutional: WD/WN, vitals as above no acute distress Neck: normal visual inspection and trachea midline Respiratory: normal respiratory effort and + cough; no respiratory distress Auscultation: + wheezes; no rales and no rhonchi Cardiovascular: Rate/Rhythm: regular rate and regular rhythm Heart Sounds: normal S1 and normal S2; no murmur Vessels: no JVD Extremities: no edema Gastrointestinal (Abdomen): normal bowel sounds, soft, nontender, no hepatosplenomegaly Skin: + ecchymosis (left eye and hinduism. ) Trauma: + abrasion (left eye and hinduism.) Neurologic: PERRL, EOMI, accommodation nl, no face palsy, no dysarthria Psychiatric: Orientation: alert and oriented x 3 Results & Data Vital Signs (Past 12 Hours) Vital Signs Temp Pulse Pulse Resp BP Pulse Ox O2 Del Method 06/04/23 15:23 36.4 C L 60 18 147/68 H 97 Room Air 06/04/23 11:57 36.6 C 70 18 160/72 H 92 Room Air 06/04/23 11:39 61 14 158/75 H 100 Room Air 06/04/23 11:34 59 L 14 153/71 H 100 Room Air 06/04/23 10:40 62 18 112/76 97 Room Air 06/04/23 08:11 36.6 C 18 163/80 H 96 Room Air 06/04/23 07:53 63 (2) CAD (coronary artery disease) Associated angina: without angina Coronary Disease-Associated Artery/Lesion type: [place] artery [place] vs. transplanted heart: [place] heart Qualified Cod e(s): I25.10 - Atherosclerotic heart disease of [place] coronary artery without angina pectoris (3) Anemia Anemia type: unspecified type Qualified Code(s): D64.9 - Anemia, unspecified
--- NOTE | 2023-06-04 19:04 | Hematology/Oncology Prog Note ---
Date of Service June 04, 2023 Assessment & Plan (1) Macrocytic anemia: Plan: . Reviewed rest of the workup. Reticulocyte count is low for the degree of anemia. Her pathologist informed me that there are abnormal red blood cells in the peripheral blood. Keeping this in mind I have recommended a bone marrow biopsy. This was relayed to her primary hospital internal medicine team colleagues. Hematology will continue to follow and make appropriate recomm endation. Transfuse for hemoglobin less than 7 Plan Bone marrow biopsy recommended. Transfuse for hemoglobin less than 7. Continue to follow with hematology Admission and Anticipated Discharge Date Admission Date: June 03, 2023 Subjective Currently doing the same, occasional lightheadedness. Reports no chest pain, no active bleeding or bruising Results & Data Vital Signs (Past 12 Hours) Vital Signs Temp Pulse Pulse Resp BP Pulse Ox O2 Del Method 06/04/23 15:23 36.4 C L 60 18 147/68 H 97 Room Air 06/04/23 11:57 36.6 C 70 18 160/72 H 92 Room Air 06/04/23 11:39 61 14 158/75 H 100 Room Air 06/04/23 11:34 59 L 14 153/71 H 100 Room Air 06/04/23 10:40 62 18 112/76 97 Room Air 06/04/23 08:11 36.6 C 18 163/80 H 96 Room Air 06/04/23 07:53 63
[2023-06-04] MEDS: LATANOPROST 0.005% OP SOLN 2.5 ML BTL OP SCH (20:10)
[2023-06-04] MEDS ORDERED: LORazepam 1 MG in SYRINGE 0.5 ML IV PRN (23:01)
--- NOTE | 2023-06-04 23:02 | Communication Note ---
Date of Service: June 04, 2023 11 PM Patient notified RN that he "experienced a seizure... Patient explains that his arms and legs stiffen up but symptoms quickly disappear" Episode similar to last night around 9:20 PM described as "seizures... short- term moment of mental distancing and mild arm and leg stiffening," as per patient. AP ? Alcohol withdrawal seizures Continue DINA S Gabapentin protocol Seizure precautions Ativan as needed active seizures Defer seizure workup to AM provider.
[2023-06-04] MEDS ORDERED: GABAPENTIN 1200MG ALCOHOL WITHDRAWAL LOAD PO STA (23:11)
[2023-06-04] MEDS ORDERED: GABAPENTIN 600 MG TAB PO ONE (23:30)
[2023-06-05] MEDS: GABAPENTIN 600 MG TAB PO SCH ×3 (05:40→21:16)
[2023-06-05 06:43] LABS: Hematocrit (blood only) 23.3 % (42.0-52.0); Hemoglobin 8.2 g/dl (14.0-18.0); Mean Corpuscular Hemoglobin 39.6 pg (25.0-34.0); Mean Corpuscular Hgb Conc 35.2 g/dL (32.0-36.0); Mean Corpuscular Volume 112.6 fL (80.0-100.0); Mean Platelet Volume 11.1 fL (9.4-12.4); Nucleated RBC # (auto) 0.02 K/uL (0.00-0.12); Nucleated RBC % (auto) 0.7 %; Platelet Count 157 K/uL (130-400); RDW Coefficient of Variation 16.3 % (11.5-14.5); RDW Standard Deviation 67.1 fL (36.4-46.3); Red Blood Count 2.07 M/uL (4.70-6.10); White Blood Count 2.69 K/ul (4.8-10.8)
--- NOTE | 2023-06-05 06:43 | Electroencephalogram ---
EEG Procedure Note Date of Service June 05, 2023 Start / End Times Start Time: 06:15 End Time: 06:35 Referring Physician Rachelle Leon History A 73 year old male with convulsions / seizure-like activity. EEG performed for evaluation of epileptiform activtiy. Home Medication List Medication Instructions Recorded Confirmed Type clopidogrel 75 mg tablet 75 mg PO DAILY 05/16/18 06/03/23 History latanoprost 0.005 % eye drops 1 drp ophthalmic (eye) PM 05/16/18 06/03/23 History multivitamin 1 tab PO DAILY 05/16/18 06/03/23 History rosuvastatin 20 mg tablet 20 mg PO DAILY 05/16/18 06/03/23 History amiodarone 200 mg tablet 200 mg PO BID 06/03/23 06/03/23 History carvedilol 3.125 mg tablet 3.125 mg PO BID 06/03/23 06/03/23 History etodolac 400 mg tablet 400 mg PO BID PRN Other 06/03/23 06/03/23 History isosorbide mononitrate 30 mg 30 mg PO DAILY 06/03/23 06/03/23 History tablet,extended release 24 hr sildenafil 50 mg tablet 10 mg PO DAILY PRN Other 06/03/23 06/03/23 History venlafaxine 150 mg 150 mg PO DAILY 06/03/23 06/03/23 History capsule,extended release 24 hr Inpatient Medication List Amiodarone HCl (Amiodarone 200 Mg Tab) 200 mg PO BID [facility] Stop: 07/03/23 20:59 Last Admin: 06/04/23 20:09 Dose: 200 mg Documented By: Admin: 06/04/23 08:38 Dose: 200 mg Documented By: Admin: 06/03/23 19:35 Dose: 200 mg Documented By: DEMETRIO Benzonatate (Benzonatate 100 Mg Capsule) 100 mg PO TID ANTONI Stop: 07/03/23 20:59 Last Admin: 06/04/23 20:08 Dose: 100 mg Documented By: Admin: 06/04/23 14:00 Dose: 100 mg Documented By: Admin: 06/04/23 08:39 Dose: 100 mg Documented By: Admin: 06/03/23 19:36 Dose: 100 mg Documented By: DEMETRIO Carvedilol (Carvedilol 3.125 Mg Tab) 3.125 mg PO BID ANTONI Stop: 07/03/23 20:59 Last Admin: 06/04/23 20:09 Dose: 3.125 mg Documented By: Admin: 06/04/23 08:38 Dose: 3.125 mg Documented By: Admin: 06/03/23 19:36 Dose: 3.125 mg Documented By: CLOTHING WORKER Clopidogrel Bisulfate (Clopidogrel Bisulfate 75 Mg Tab) 75 mg PO DAILY ANTONI Stop: 07/04/23 08:59 Last Admin: 06/04/23 08:38 Dose: 75 mg Documented By: BT Folic Acid (Folic Acid 400 Mcg Tab) 400 mcg PO QAM ANTONI Stop: 07/04/23 13:29 Last Admin: 06/04/23 13:58 Dose: 400 mcg Documented By: NIMISHA Gabapentin (Gabapentin 600 Mg Tab) 600 mg PO Q6H ANTONI Stop: 06/05/23 12:01 Last Admin: 06/05/23 05:40 Dose: 600 mg Documented By: JB Guaifenesin (Guaifenesin 600 Mg Tabcr) 1,200 mg PO Q12 ANTONI Stop: 07/03/23 20:59 Last Admin: 06/04/23 20:08 Dose: 1,200 mg Documented By: Admin: 06/04/23 08:39 Dose: 1,200 mg Documented By: Admin: 06/03/23 19:36 Dose: 1,200 mg Documented By: DEMETRIO Isosorbide Mononitrate (Isosorbide Crosby Extended Rel 30 Mg Tabcr) 30 mg PO DAILY ANTONI Stop: 07/04/23 08:59 Last Admin: 06/04/23 08:38 Dose: 30 mg Documented By: NIMISHA Latanoprost (Latanoprost 0.005% Op Soln 2.5 Ml Btl) 1 drops OP PM ANTONI Stop: 07/03/23 20:59 Last Admin: 06/04/23 20:10 Dose: 1 drops Documented By: Admin: 06/03/23 19:36 Dose: 1 drops Documented By: DEMETRIO Multivitamins (Multivitamin Tab) 1 tab PO DAILY ANTONI Stop: 07/04/23 08:59 Last Admin: 06/04/23 08:38 Dose: 1 tab Documented By: NIMISHA Rosuvastatin Calcium (Rosuvastatin Calcium 20 Mg Tab) 20 mg PO DAILY ANTONI Stop: 07/04/23 08:59 Last Admin: 06/04/23 08:38 Dose: 20 mg Documented By: BT Thiamine HCl (Thiamine Hcl 100 Mg Tab) 100 mg PO QAM ANTONI Stop: 07/04/23 13:29 Last Admin: 06/04/23 13:58 Dose: 100 mg Documented By: BT Venlafaxine HCl (Venlafaxine Hcl Xr 150 Mg Capxr) 150 mg PO DAILY ANTONI Stop: 07/04/23 08:59 Last Admin: 06/04/23 08:39 Dose: 150 mg Documented By: BT Discontinued Medications Cefazolin Sodium (Cefazolin 330 Mg/Ml 1 Gm Vial) Confirm Administered Dose 1,980 mg .ROUTE .STK-MED ONE Stop: 06/04/23 11:19 Last Admin: 06/04/23 12:11 Dose: Not Given Documented By: BT Gabapentin (Gabapentin 600 Mg Tab) 1,200 mg PO NOW ONE Stop: 06/04/23 23:31 Last Admin: 06/04/23 23:35 Dose: 1,200 mg Documented By: JB Sodium Chloride (Nss) 500 mls @ 999 mls/hr IV .Q31M STA Stop: 06/03/23 11:41 Last Infusion: 06/03/23 12:25 Dose: Infused Documented By: Admin: 06/03/23 11:59 Dose: 999 mls/hr Documented By: JAVIER Isosorbide Mononitrate (Isosorbide [place] Extended Rel 30 Mg Tabcr) 30 mg PO NOW ONE Stop: 06/03/23 19:54 Last Admin: 06/03/23 20:45 Dose: 30 mg Documented By: CLOTHING WORKER Lidocaine HCl (Lidocaine 1% Local 20 Ml Vial) Confirm Administered Dose 20 ml .ROUTE .STK-MED ONE Stop: 06/04/23 06:56 Last Admin: 06/04/23 12:11 Dose: Not Given Documented By: NIMISHA Description This is a 21 electrode EEG with a single channel dedicated to limited EKG. The electrodes were placed in accordance with the International 10-20 system. REPORT: At the onset of the EEG, the patient is awake. The background activity consist of 10-11 Hz, persistent, posteriorly dominant, moderate amplitude, symmetric and rhythmic activity that is reactive to eye opening. Anteriorly, it consist of a mixture of low voltage indeterminate activity and 15-25 Hz, persistent, low amplitude, symmetric and rhythmic activity. Stepwise intermittent photic stimulation (1-21 Hz) does not induce any abnormalities. Drowsiness is characterized by low amplitude mixed frequency activity, roving eye movements, and decreased eye blinking and muscle artifact. Interpretation IMPRESSION: This is a normal awake and drowsy routine EEG. There is no evidence of focal slowing or epileptiform activity.
[2023-06-05 06:59] LABS: BUN Creatinine Ratio 16.5 (10-20); Calcium 9.4 mg/dl (8.6-10.3); Est GFR (African American) 77.6 ml/min; Magnesium 2.1 mg/dl (1.7-2.4); Potassium 4.3 mmol/L (3.5-5.1)
[2023-06-05] MEDS: THIAMINE HCL 100 MG TAB PO SCH (08:32)
[2023-06-05] MEDS: FOLIC ACID 400 MCG TAB PO SCH (08:32)
[2023-06-05] MEDS: MULTIVITAMIN TAB PO SCH (08:32)
[2023-06-05] MEDS: carvediloL 3.125 MG TAB PO SCH ×2 (08:33→21:17)
[2023-06-05] MEDS: AMIODARONE 200 MG TAB PO SCH ×2 (08:33→21:16)
[2023-06-05] MEDS: ROSUVASTATIN CALCIUM 20 MG TAB PO SCH (08:34)
[2023-06-05] MEDS: guaiFENesin 600 MG TABCR PO SCH ×2 (08:34→21:17)
[2023-06-05] MEDS: BENZONATATE 100 MG CAPSULE PO SCH ×3 (08:35→21:17)
[2023-06-05] MEDS: CLOPIDOGREL BISULFATE 75 MG TAB PO SCH (08:35)
[2023-06-05] MEDS: ISOSORBIDE MONO EXTENDED REL 30 MG TABCR PO SCH (08:36)
[2023-06-05] MEDS: VENLAFAXINE HCL XR 150 MG CAPXR PO SCH (08:36)
[2023-06-05] MEDS ORDERED: POLYETHYLENE (MIRALAX) 17 GM PACK PO PRN (11:11)
[2023-06-05] MEDS ORDERED: DOCUSATE SODIUM 100 MG CAP PO PRN (11:12)
--- NOTE | 2023-06-05 12:27 | Neurology Consultation ---
Date of Consultation June 05, 2023 Assessment & Plan (1) Near syncope: Plan 73 y/o male with history of CAD that presented with spells and history of LOC. Given the history of the events associated with cough, these episodes are most suggestive of post tussive pre syncope. He does not appear to have lost consciousness or awareness with these events. Given maintained awareness with reported of shaking of all extremities, these events are less suggestive of seizure. EEG with no evidence of epileptform discharges. Would continue symptomatic management of cough. The second type of event which has been associated with LOC seems to be most consistent with syncope, occurring after positional changes and associated with preceding dizziness. Also low suspicion that this event represents seizure. Orthostatic vitals have been inconsistent, although with some suggestion of blood pressure decreasing with positional changes, and if this is confirmed would pursue further evaluation including for any potential medication contributors. If episodes of LOC persist, pt may benefit from ambulatory EEG or tilt table testing in the future. 1. MRI brain w/wo 2. Consider avoiding sudden position changes, rising slowly, ensuring adequate hydration, avoiding large meals, and compression stockings 3. Symptomatic management of cough 4. No driving 5. Neurology outpatient follow-up Telehealth Consultation Telehealth Information Telehealth Information: I performed this visit using a real-time telehealth connection between my location and the patients location ([facility]). After connecting through interactive tele-video, patient was identified by name and date of and/or wristband check.Patient (or authorized healthcare retail customer service representative) was informed that this was a telemedicine visit and it was being conducted confidentially over secure lines. My office door was closed and no one else was present in the room with me.Patient (or authorized healthcare re presentative) provided consent to proceed with the visit, expressed an understanding of privacy and security of the telemedicine visit, and gave permission to have a hospital retail customer service representative in the room in order to assist with the visit and to conduct portions of the visit, as needed. I informed the patient (or authorized healthcare retail customer service representative) that I reviewed their record and presented the opportunity for them to ask any questions regarding the visit today. The patient agreed to participate. History of Present Illness Reason for Consultation: possible recurrent seizure Requesting Physician: Dr. Sunil Dela Cruz Attending Physician: Sunil Dela Cruz MD History of Present Illness 73 y/o male that presented with recurrent loss of consciousness. One year ago, richard montague reports that he had an episode of loss of consciousness but he is unable to recall any additional details surrounding this event. However, he states that once every three weeks or four weeks this would occur again then after some time (he is not able to say when) this increased to every two weeks and then increased to once per week six months ago. He states that over the last three weeks he has had URI symptoms and he has been having episodes he has felt to be seizure during this time, up ro several times per day. He has two types of episodes. He describes the first type as sitting and then standing up feeling dizzy or immediately losing consciousness. He has never had confusion or lethargy after coming to. He had single episode of urinary incontinence with one event but he had actually began going to the bathroom prior to the start of the event. He denies any tongue biting in association. He has a second type of event where he starts coughing and he feels that his mind wonders off and his arms and legs stiffen and all four extremities shake. He maintains his awareness and is aware of the shaking during this time. He is unsure how long these events last. He denies any tongue biting, incontinence, or confusion/lethargy in association with the second event type. Since he has been sick, he reports frequent occurrence of the second type of event. He reports that his daughter has epilepsy. He states that he has no prior history of seizures. He reports a prior history of slipping in the [place] while hunting and hitting his head on a rock 20-30 years ago but otherwise denies any trauma. While he has been in the hospital, he has only had two episodes associated with cough and as his cough has improved, these episodes have decreased. Allergies Allergy/AdvReac Type Severity Reaction Status Date / Time fluvastatin [From Lescol] AdvReac Joint Pain Unverified 05/16/18 12:06 simvastatin [From Zocor] AdvReac Joint Pain Unverified 05/16/18 12:06 Home Medications Medication Instructions Recorded Confirmed Type clopidogrel 75 mg tablet 75 mg PO DAILY 05/16/18 06/03/23 History latanoprost 0.005 % eye drops 1 drp ophthalmic (eye) PM 05/16/18 06/03/23 History multivitamin 1 tab PO DAILY 05/16/18 06/03/23 History rosuvastatin 20 mg tablet 20 mg PO DAILY 05/16/18 06/03/23 History amiodarone 200 mg tablet 200 mg PO BID 06/03/23 06/03/23 History carvedilol 3.125 mg tablet 3.125 mg PO BID 06/03/23 06/03/23 History etodolac 400 mg tablet 400 mg PO BID PRN Other 06/03/23 06/03/23 History isosorbide mononitrate 30 mg 30 mg PO DAILY 06/03/23 06/03/23 History tablet,extended release 24 hr sildenafil 50 mg tablet 10 mg PO DAILY PRN Other 06/03/23 06/03/23 History venlafaxine 150 mg 150 mg PO DAILY 06/03/23 06/03/23 History capsule,extended release 24 hr Patient History Medical History (Updated 06/03/23 @ 19:34 by Jung Werner MD) CAD (coronary artery disease) Heart attack Surgical History (Updated 05/16/18 @ 11:03 by Ignacio Pisano) History of heart bypass surgery Family History (Updated 06/03/23 @ 14:02 by Rachelle Dewitt PA-C) Father Cancer Colonic polyp Heart disease Social History (Updated 06/03/23 @ 14:02 by Rachelle Dewitt PA-C) Smoking Status: Never smoker Second Hand Exposure: No; Do You Dip or Chew Tobacco: No; Tobacco Cessation Education Requested by Patient: No Hx Alcohol Use: No Hx Substance Use: No Preferred Language: [place] Communication Ability: Effective Biologist Aide Required: No Beliefs That Will Affect Care: None Feels Safe at Home: Yes Safety Concerns: Feels Safe At This Time Assistive Devices: None Review of Systems Negative except as listed in HPI Physical Exam AAO X 3 No aphasia or dysarthria VFF grossly intact EOMI, no nystagmus Facial sensations intact No facial asymmetry Tongue protrudes midline Motor: Moves all four extremities antigravity with no drift Sensation: Intact to light touch throughout Cerebellar:FTN and HTS intact Results & Data Vital Signs (Past 12 Hours) Vital Signs Temp Pulse Resp BP BP Pulse Ox O2 Del Method 06/05/23 11:09 36.2 C L 66 18 124/61 97 Room Air 06/05/23 07:00 36.6 C 66 18 134/71 96 Room Air 06/05/23 02:49 36.9 C 56 L 17 122/67 94 Room Air Laboratory Results WBC 2.69, HGB 8.2, HCT 23.3, Plts 157, Na 136, Chloride 102, Creatinine 1.09, BUN 18, Glucose 103, Calcium 9.4, Magnesium 2.1 Diagnostic Findings CTH 06/03: No acute intracranial abnormality or calvarial fracture. EEG:This is a normal awake and drowsy routine EEG. There is no evidence of focal slowing or epileptiform activity.
--- NOTE | 2023-06-05 12:34 | Cardiology Progress Note ---
Date of Service June 05, 2023 Assessment & Plan (1) Syncope and collapse: (2) CAD (coronary artery disease): (3) Anemia: Plan IMPRESSION: 73-year-old male with longstanding history of syncope induced by coughing and urinating. Recurrent symptoms of in the setting of a viral upper respiratory tract infection. Cardiac workup has been unrevealing thus far. Echo PENDING. PLAN: Syncope: -Syncope caused by stimulus like coughing/urinating-- possibly vasovagal induced. Anemia: -Hemoglobin of 8.7, unsure what the patient's baseline is, however, he did have blood in the urine a week or so prior. -FOBT ordered to rule out blood in the stools. Further workup of anemia per primary team. Coronary artery disease: -Prior history of PCI's dating back to 1999 and CABG x , 2009. -Stable, no angina. On Plavix, continue for now. Will need to see prior cardiology records. Upper respiratory tract infection: -Supportive measures per primary service. 06/04/2023 Due to recurrent syncope patient underwent Linq event monitor insertion. No arrhythmias since hospitalization. Tolerating current medications. Increase activities in hospital Close cardiology follow-up post hospital discharge Other medical issues as being assessed 06/05/2023 Linq insertion site clean Despite event last evening no arrhythmias noted on telemetry Stable hemodynamically This chart was completed in part utilizing Speech Voice Recognition Software. Grammatical errors, random word insertions, pronoun errors, and incomplete sentences are an occasional consequence of this system due to software limitations, ambient noise, and hardware issues. Any formal questions or concerns about the content, text, or information contained within the body of this dictation should be directly addressed to the provider for clarification. Admission and Anticipated Discharge Date Admission Date: June 03, 2023 Subjective Patient seen and examined no acute cardiac complaint Had a "spell" last evening marked rigidity question seizure activity. No arrhythmia on telemetry No irritation at site of Linq insertion Review of Systems Review of Systems: All systems reviewed & are unremarkable except as noted in Subjective Physical Exam Constitutional: WD/WN, vitals as above Respiratory: normal respiratory effort, lungs clear to auscultation Cardiovascular: Rate/Rhythm: regular rate and regular rhythm Chest (Breasts): Additional Comments: Subcutaneous Linq insertion site without erythema or hematoma Results & Data Vital Signs (Past 12 Hours) Vital Signs Temp Pulse Resp BP BP Pulse Ox O2 Del Method 06/05/23 11:09 36.2 C L 66 18 124/61 97 Room Air 06/05/23 07:00 36.6 C 66 18 134/71 96 Room Air 06/05/23 02:49 36.9 C 56 L 17 122/67 94 Room Air (2) CAD (coronary artery disease) Coronary Disease-Associated Artery/Lesion type: [place] artery [place] vs. transplanted heart: [place] heart Associated angina: without angina Qualified Code(s): I25.10 - Atherosclerotic heart disease of [place] coronary artery without angina pectoris (3) Anemia Anemia type: unspecified type Qualified Code(s): D64.9 - Anemia, unspecified
--- NOTE | 2023-06-05 18:39 | Hospitalist Progress Note ---
Date of Service June 05, 2023 Assessment & Plan (1) Syncope and collapse: Plan: Recurrent syncope and collapse Likely Vasovagal caused by stimulus like coughing/micturition --CT Head:No acute intracranial abnormality or calvarial fracture. --ECHO: Left ventricle wall motion is normal. EF 55%. Mild mitral regurgitation. Findings do not suggest pulmonary hypertension. Arctic root diameter is normal. Proximal ascending aorta is mildly dilated at 3.8 cm. Grade 2 diastolic dysfunction. --EEG:This is a normal awake and drowsy routine EEG. There is no evidence of focal slowing or epileptiform activity. S/P new Loop insertion by on 06/04/23 Normal orthostatics Appreciate cardiology input Monitor and replace electrolytes as needed Continue carvedilol, amiodarone, Imdur, statin Needs follow-up with cardiology and neurology as outpatient MRI brain pending Appreciate neurology input: Less likely suggestive of seizure. EEG showed no evidence of epilepticform discharges. Will likely need ambulatory EEG, MRI Will likely need ambulatory EEG as outpatient (2) CAD (coronary artery disease): Plan: H/O CABG Continue home medications Cardiology on board Recent URI --CXR:Cardiomegaly without acute process. 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 MDS No acute bleeding issues Normal iron panel, thiamine, folate levels Annia test negative Reticulocyte count 2.7 Normal LDH, bilirubin levels Peripheral smear concerning for MDS Appreciate oncology input Monitor CBC Will need bone marrow biopsy, follow-up with hematology as outpatient DVT Px: SCDs for now CODE STATUS FULL CODE Admission and Anticipated Discharge Date Admission Date: June 03, 2023 Subjective Patient is seen and examined at bedside Patient had another episode overnight with stiffening of the legs, seizure-like activity Reported constipation tomorrow Offers no complaints to me this morning Discussed with cardiology today Denies any chest pain, dyspnea, dizziness, nausea, vomiting, abdominal pain today Review of Systems Review of Systems: All systems reviewed & are unremarkable except as noted in Subjective Physical Exam Physical Exam: Physical Exam: Vitals signs as noted above General Appearance:Obese, no apparent distress Head: normocephalic, Atraumatic Eyes: normal inspection, EOMI Neck: supple, Trachea midline Respiratory/Chest: Normal breath sounds, CTA, No accessory muscle use Cardiovascular: S1, S2, No murmur Abdomen/GI:Soft, Non tender, Bowel sounds present Extremities/Musculoskeletal:normal inspection, no edema Neurologic/Psych:AAOX3, grossly no focal neurological deficits Skin: normal color, warm, +CABG scar Results & Data Results & Data Vital Signs (Past 12 Hours) Vital Signs Temp Pulse Pulse Resp BP Pulse Ox O2 Del Method 06/05/23 15:54 58 L 06/05/23 15:36 36.5 C 69 17 134/74 97 Room Air 06/05/23 11:09 36.2 C L 66 18 124/61 97 Room Air 06/05/23 08:00 61 06/05/23 07:00 36.6 C 66 18 134/71 96 Room Air Laboratory Results Short CBC 06/05/23 Range/Units 05:57 WBC 2.69 L (4.8-10.8) K/ul Hgb 8.2 L (14.0-18.0) g/dl Hct 23.3 L (42.0-52.0) % Plt Count 157 (130-400) K/uL BMP 06/05/23 05:57 Sodium 136 Potassium 4.3 Chloride 102 Carbon Dioxide 29 BUN 18 Creatinine 1.09 Glucose 103 H Calcium 9.4 (2) CAD (coronary artery disease) Coronary Disease-Associated Artery/Lesion type: [place] artery [place] vs. transplanted heart: [place] heart Associated angina: without angina Qualified Code(s): I25.10 - Atherosclerotic heart disease of [place] coronary artery with out angina pectoris (3) Anemia Anemia type: unspecified type Qualified Code(s): D64.9 - Anemia, unspecified
[2023-06-05] MEDS: LATANOPROST 0.005% OP SOLN 2.5 ML BTL OP SCH (21:15)
[2023-06-05] MEDS ORDERED: LORazepam 0.5 MG TAB PO STA (22:52)
[2023-06-06] MEDS ORDERED: GADOBUTROL 65ML VIAL IV ONE (00:28)
--- NOTE | 2023-06-06 02:12 | Magnetic Resonance Report ---
Exam(s): MRI HEAD W/WO Contrast IV Amt: 9cc gadavist EXAM: MR Head Without and With Intravenous Contrast CLINICAL HISTORY: Reason for exam: seizure like activity. TECHNIQUE: Magnetic resonance images of the head/brain without and with intravenous contrast in multiple planes. CONTRAST: Patient received 9cc gadavist of IV contrast COMPARISON: Comparison made to prior head CT from June 03, 2023. FINDINGS: Brain: Moderate nonspecific white matter changes. Remote ischemic injuries of the capsules. No mass. No hemorrhage. No acute infarct. The flow voids of the base of the brain are intact. Normal enhancement. The dural venous sinuses are patent. Ventricles: Unremarkable. No ventriculomegaly. Bones/joints: Hyperostosis frontalis interna. No acute fracture. Sinuses: Chronic ethmoid sinusitis. No acute sinusitis. Mastoid air cells: Unremarkable as visualized. No mastoid effusion. Orbits: Bilateral lens replacements. IMPRESSION: No evidence of acute intracranial pathology. Electronically signed by: Parul Multani MD 06/06/23 02:11 AM
[2023-06-06] MEDS: GABAPENTIN 600 MG TAB PO SCH ×2 (05:44→12:28)
[2023-06-06 06:32] LABS: Hematocrit (blood only) 24.6 % (42.0-52.0); Hemoglobin 8.4 g/dl (14.0-18.0); Mean Corpuscular Hemoglobin 39.1 pg (25.0-34.0); Mean Corpuscular Hgb Conc 34.1 g/dL (32.0-36.0); Mean Corpuscular Volume 114.4 fL (80.0-100.0); Mean Platelet Volume 11.4 fL (9.4-12.4); Nucleated RBC # (auto) 0.02 K/uL (0.00-0.12); Nucleated RBC % (auto) 0.7 %; Platelet Count 167 K/uL (130-400); RDW Coefficient of Variation 16.4 % (11.5-14.5); Red Blood Count 2.15 M/uL (4.70-6.10)
[2023-06-06 07:07] LABS: Est GFR (African American) 73.5 ml/min; Potassium 4.1 mmol/L (3.5-5.1)
[2023-06-06 07:08] LABS: BUN Creatinine Ratio 21.9 (10-20); Calcium 9.5 mg/dl (8.6-10.3); Creatinine Clr Calc Pharmacy 64.3 ml/min; Est GFR (Non-African American) 63.4 ml/min
[2023-06-06] MEDS: ISOSORBIDE MONO EXTENDED REL 30 MG TABCR PO SCH (08:47)
[2023-06-06] MEDS: THIAMINE HCL 100 MG TAB PO SCH (08:47)
[2023-06-06] MEDS: FOLIC ACID 400 MCG TAB PO SCH (08:47)
[2023-06-06] MEDS: VENLAFAXINE HCL XR 150 MG CAPXR PO SCH ×2 (08:47→10:02)
[2023-06-06] MEDS: ROSUVASTATIN CALCIUM 20 MG TAB PO SCH (08:47)
[2023-06-06] MEDS: AMIODARONE 200 MG TAB PO SCH (08:48)
[2023-06-06] MEDS: MULTIVITAMIN TAB PO SCH (08:48)
[2023-06-06] MEDS: carvediloL 3.125 MG TAB PO SCH (08:48)
[2023-06-06] MEDS: CLOPIDOGREL BISULFATE 75 MG TAB PO SCH (08:48)
[2023-06-06] MEDS: guaiFENesin 600 MG TABCR PO SCH (08:48)
[2023-06-06] MEDS: BENZONATATE 100 MG CAPSULE PO SCH ×2 (08:48→12:28)
[2023-06-06] MEDS ORDERED: FLUTICASONE PROPIONATE NA SPR 16 GM BTL SCH (11:15)
[2023-06-06] MEDS ORDERED: PANTOprazole 40 MG TAB PO SCH (11:15)
--- NOTE | 2023-06-06 11:51 | CT Scan Report ---
CT OF THE CHEST WITHOUT IV CONTRAST CLINICAL HISTORY: Cough. COMPARISON STUDY: Chest radiograph June 03, 2023. CT DOSE: 757.01 mGy.cm TECHNIQUE: Axial images of the chest were obtained without IV contrast. Images were reviewed in the axial, sagittal, and coronal planes. IV contrast was not administered for this examination. Automat ed exposure control was utilized for the study. A dose lowering technique was utilized adhering to t he principles of ALARA. FINDINGS: No enlarged axillary, mediastinal or hilar lymph nodes are present. There is a loop record er. Median sternotomy wires and postoperative findings consistent with bypass grafting are noted. The re is extensive coronary artery calcification. Mild cardiomegaly. No pericardial effusion. No pneumot horax or pleural effusion is present. There is no consolidation to suggest pneumonia. A partially ricky cified 9 mm nodule within the superior segment of the right lower lobe on image 97 of 241 is present. A few healing bilateral rib fractures are present. No acute rib fractures are present. Visualized po rtions of the upper abdomen are unremarkable on unenhanced exam. IMPRESSION: 1. No consolidation to suggest pneumonia. 2. 9 mm partially calcified right lower lobe nodule. This is likely benign. A chest CT in 6 months to ensure stability is recommended. ACT 112: Negative or not required by law. Electronically signed by: Heber Parikh M.D. 06/06/2023 11:50 AM
--- NOTE | 2023-06-06 14:37 | History & Physical Bridge Note ---
Date of Service June 06, 2023 History & Physical Bridge Note I have examined the patient, reviewed the History & Physical and in the interval since the performance of the History & Physical I have noted the following changes of clinical significance: pt with syncope and underling trifascicular block he is recommended a ppm prior to hospital discharge. I discussed the procedure and potential risks with the patient he expressed an understanding and consents signed.
--- NOTE | 2023-06-06 14:37 | Pre Anesthesia Assessment ---
Date of Service June 06, 2023 Pre Sedation Assessment Vital Signs Temp Pulse Pulse Resp BP Pulse Ox O2 Del Method 06/06/23 10:52 36.2 C L 80 18 116/77 97 Room Air 06/06/23 08:16 36.4 C L 58 L 18 123/66 95 Room Air 06/06/23 07:00 57 L 06/06/23 03:40 36.8 C 59 L 18 138/72 95 Room Air 06/05/23 21:59 58 L 06/05/23 21:20 Room Air 06/05/23 19:53 36.8 C 63 16 139/64 96 Room Air 06/05/23 15:54 58 L 06/05/23 15:36 36.5 C 69 17 134/74 97 Room Air Cardiovascular RRR, no murmur, no edema Respiratory normal respiratory effort, lungs clear to auscultation Pre-Sedation Airway Assessment Smoking Status: Never smoker Hx Sleep Apnea: No Hx Difficult Intubation: No Short, Thick Neck: No Thyromental Distance: < 3.5 Finger Breadths Oral Cavity: + Dental Abnormalities Mallampati Class: II ASA: ASA3 Notes The planned sedation has been discussed with the patient. Informed Consent was obtained. I have identified the patient, determined the appropriateness of sedation and have assessed the patient immediately prior to the procedure. All medicine(s) and interventions are by my order.
--- NOTE | 2023-06-06 14:40 | Hospitalist Progress Note ---
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 --ECHO: Left ventricle wall motion is normal. EF 55%. Mild mitral regurgitation. Findings do not suggest pulmonary hypertension. Arctic root diameter is normal. Proximal ascending aorta is mildly dilated at 3.8 cm. Grade 2 diastolic dysfunction. --EEG:This is a normal awake and drowsy routine EEG. There is no evidence of focal slowing or epileptiform activity. --MRI Brain:No evidence of acute intracranial pathology. S/P new Loop insertion by on 06/04/23 Normal orthostatics Appreciate cardiology input Monitor and replace electrolytes as needed Continue carvedilol, amiodarone, Imdur, statin Needs follow-up with cardiology and neurology as outpatient Appreciate neurology input: Less likely suggestive of seizure. EEG showed no evidence of epilepticform discharges. Will likely need ambulatory EEG, MRI Will likely need ambulatory EEG as outpatient Advised to follow-up with cardiology, neurology as outpatient Chronic cough Right lower lobe pulmonary nodule Patient attributes chronic cough due to chronic sinus issues/GERD --CT Chest:No consolidation to suggest pneumonia. 9 mm partially calcified right lower lobe nodule. This is likely benign. A chest CT in 6 months to ensure stability is recommended. Started on Flonase and Protonix Advised to get repeat CT chest in 6 months for further evaluation of pulmonary nodule Also advised to follow-up with pulmonology as outpatient if no improvement with current management (2) CAD (coronary artery disease): Plan: H/O CABG Continue home medications Cardiology on board Recent URI --CXR:Cardiomegaly without acute process. 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 MDS No acute bleeding issues Normal iron panel, thiamine, folate levels Annia test negative Reticulocyte count 2.7 Normal LDH, bilirubin levels Peripheral smear concerning for MDS Appreciate oncology input Monitor CBC Will need bone marrow biopsy, follow-up with hematology as outpatient DVT Px: SCDs for now CODE STATUS FULL CODE Disposition Home Admission and Anticipated Discharge Date Admission Date: June 03, 2023 Subjective Patient is seen and examined at bedside Patient had a very brief coughing spell this morning leading to syncope for 2 to 3 seconds Patient admits to have chronic cough which she attributes to chronic sinus issues Discussed with cardiology today Denies any chest pain, dyspnea, dizziness, nausea, vomiting, abdominal pain Plan to be discharged home today Review of Systems Review of Systems: All systems reviewed & are unremarkable except as noted in Subjective Physical Exam Physical Exam: Physical Exam: Vitals signs as noted above General Appearance:Obese, no apparent distress Head: normocephalic, Atraumatic Eyes: normal inspection, EOMI Neck: supple, Trachea midline Respiratory/Chest: Normal breath sounds, CTA, No accessory muscle use Cardiovascular: S1, S2, No murmur Abdomen/GI:Soft, Non tender, Bowel sounds present Extremities/Musculoskeletal:normal inspection, no edema Neurologic/Psych:AAOX3, grossly no focal neurological deficits Skin: normal color, warm, +CABG scar Results & Data Results & Data Vital Signs (Past 12 Hours) Vital Signs Temp Pulse Pulse Resp BP Pulse Ox O2 Del Method 06/06/23 10:52 36.2 C L 80 18 116/77 97 Room Air 06/06/23 08:16 36.4 C L 58 L 18 123/66 95 Room Air 06/06/23 07:00 57 L 06/06/23 03:40 36.8 C 59 L 18 138/72 95 Room Air Laboratory Results Short CBC 06/06/23 Range/Units 05:53 WBC 2.80 L (4.8-10.8) K/ul Hgb 8.4 L (14.0-18.0) g/dl Hct 24.6 L (42.0-52.0) % Plt Count 167 (130-400) K/uL BMP 06/06/23 05:53 Sodium 134 L Potassium 4.1 Chloride 102 Carbon Dioxide 26 BUN 25 H Creatinine 1.14 Glucose 104 H Calcium 9.5 (2) CAD (coronary artery disease) Coronary Disease-Associated Artery/Lesion type: [place] artery [place] vs. transplanted heart: [place] heart Associated angina: without angina Qualified Code(s): I25.10 - Atherosclerotic heart disease of [place] coronary artery without angina pectoris (3) Anemia Anemia type: unspecified type Qualified Code(s): D64.9 - Anemia, unspecified
--- NOTE | 2023-06-06 14:54 | Discharge Summary ---
Date of Service June 06, 2023 Admission HPI Per Admitting Provider This is a 73 yo M with PMHX of CAD s/p triple Bypass in 2009 with cardiac stents, hx of recent cardiac catheterization done in Apr 2023, hx of holter monitor in place about 1 year ago without acute abnormalities seen. Other PMHx of BENNIE, did not tolerate CPAP due to claustrophobia and not tolerating it. He is on rate controlling medication however denies any history of irregular heart rate. Pt notes has been sick with respiratory illness over the past 2 weeks. He describes syncopal episodes happening intermittently over the past year, about 1x per week, where he loses consciousness. This has become much more frequent over the past 2 weeks, upwards of 5x per day. He admits to dizziness sensation most time with standing. It occurs moreso when goes from sitting to standing position, occasionally happens when he is sitting down. He describes episodes happening when he is sitting down, seeming more like a seizure, where he is shaking and takes a while to relax. He does not know how long these episodes last, they have been witnessed but he hasn't asked people to tell him how long it lasts for. Pt admits to large about of phlegm with cough with this respiratory symptoms. He denies fever, chills or sweats, but hasn't taken his temperature. He has previously been told he has BENNIE however does not tolerate CPAP. Patient also notes that he has had some issues with swallowing and sometimes feel that food goes down the wrong tube, this has not happened recently though. He lives at home by himself. He admits to a fall that happened 5 days ago, hit his left side of his face as well as his left knee due to syncopal episode, but did not seek out medical care at that time. He has had recent colonoscopy with polyps, 8 were removed recently, the last one was about 2 years ago at [facility]. Notes his father from colon cancer and therefore gets screened as directed by GI physician. Family Hx Father: Heart disease, DC, colon cancer Social Hx: Current tobacco use with smoking cigarettes, 0.5 packs per week, prior to this was 0.5 ppd. Alcohol use hx with 5-6 beers per day, 5 days per week, reduced to drinking 5-6 beers 2 days per week. This reduction happened since respiratory symptoms started 2 weeks ago. Admission Exam Per Admitting Provider General: Obese. Eyes: PERRL, conjunctivae normal, not pale, anicteric sclerae, EOM intact bilaterally, Bruise around left eye ENMT: External ear and nose normal, oropharynx normal. Hearing aid in situ Respiratory: Normal respiratory effort, no respiratory distress, lungs clear to auscultation, no crackles and no wheezes Cardiovascular: RRR S1 S2 Gastrointestinal (Abdomen): Abdomen is not distended, soft, non-tender to palpation, no guarding, no palpable hepatosplenomegaly, normal bowel sounds Musculoskeletal: No pedal edema Neurologic: Alert and oriented x 3, No focal weakness, sensation grossly intact Psychiatric: Euthymic affect Principal Diagnosis Recurrent syncope and collapse Likely vasovagal Alcohol use disorder Macrocytic anemia Right lower lobe pulmonary nodule Discharge Data Allergies Allergy/AdvReac Type Severity Reaction Status Date / Time fluvastatin [From Lescol] AdvReac Joint Pain Unverified 05/16/18 12:06 simvastatin [From Zocor] AdvReac Joint Pain Unverified 05/16/18 12:06 Consultations 06/03/23 12:48 Consult Cardiology Routine 06/03/23 13:11 ED Decision to Admit Stat 06/03/23 15:35 Consult Hematology Routine 06/05/23 09:27 Consult Neurology Routine Procedures Performed Operation Date: 06/04/23 10:15 Actual Procedures p Implant Cardiac Event Recorder - Renetta Msoley, Laboratory Results WBC 2.80 K/ul (4.8-10.8) L 06/06/23 05:53 RBC 2.15 M/uL (4.70-6.10) L 06/06/23 05:53 Hgb 8.4 g/dl (14.0-18.0) L 06/06/23 05:53 Hct 24.6 % (42.0-52.0) L 06/06/23 05:53 MCV 114.4 fL (80.0-100.0) H 06/06/23 05:53 MCH 39.1 pg (25.0-34.0) H 06/06/23 05:53 MCHC 34.1 g/dL (32.0-36.0) 06/06/23 05:53 RDW Std Deviation 68.0 fL (36.4-46.3) H 06/06/23 05:53 RDW Coeff of Alejandro 16.4 % (11.5-14.5) H 06/06/23 05:53 Plt Count 167 K/uL (130-400) 06/06/23 05:53 MPV 11.4 fL (9.4-12.4) 06/06/23 05:53 Reticulocyte % (Auto) 2.70 % (0.50-2.00) H 06/04/23 09:13 Reticulocyte # 0.060 10^6/uL (0.020-0.100) 06/04/23 09:13 Absolute Nucleated RBC 0.02 K/uL (0.00-0.12) 06/06/23 05:53 Nucleated RBC % (auto) 0.7 % 06/06/23 05:53 Neutrophils % (Manual) 33 % 06/03/23 11:50 Lymphocytes % (Manual) 36 % 06/03/23 11:50 Monocytes % (Manual) 29 % 06/03/23 11:50 Eosinophils % (Manual) 2 % 06/03/23 11:50 Neutrophils # (Manual) 0.97 K/uL (1.40-6.50) L 06/03/23 11:50 Total Absolute Neuts 0.97 K/uL (1.4-6.5) L* 06/03/23 11:50 Lymphocytes # (Manual) 1.06 K/uL (1.2-3.4) L 06/03/23 11:50 Total Abs Lymphocytes 1.06 K/uL (1.2-3.4) L 06/03/23 11:50 Monocytes # (Manual) 0.85 K/uL (0.11-0.59) H 06/03/23 11:50 Eosinophils # (Manual) 0.06 K/uL (0-0.50) 06/03/23 11:50 Blood Smear Review 06/03/23 11:50 Polychromasia 1+ 06/03/23 11:50 Macrocytosis Present 06/03/23 11:50 Tear Drop Cells Occasional 06/03/23 11:50 PT 11.0 Seconds (9.0-12.0) 06/03/23 14:14 INR 1.0 (0.9-1.1) 06/03/23 14:14 Sodium 134 mmol/L (136-145) L 06/06/23 05:53 Potassium 4.1 mmol/L (3.5-5.1) 06/06/23 05:53 Chloride 102 mmol/L (98-107) 06/06/23 05:53 Carbon Dioxide 26 mmol/L (21-32) 06/06/23 05:53 Anion Gap 6 (3-11) 06/06/23 05:53 BUN 25 mg/dl (6-23) H 06/06/23 05:53 Creatinine 1.14 mg/dl (0.6-1.4) 06/06/23 05:53 Est Cr Clr Drug Dosing 64.3 ml/min 06/06/23 05:53 Est GFR ( Amer) 73.5 ml/min 06/06/23 05:53 Est GFR (Non-Af Amer) 63.4 ml/min 06/06/23 05:53 BUN/Creatinine Ratio 21.9 (10-20) H 06/06/23 05:53 Glucose 104 mg/dl (70-99(Fasting)) H 06/06/23 05:53 POC Glucose 114 mg/dl (70-99) H 06/04/23 23:21 Estimat Average Glucose 137 mg/dl 06/04/23 06:36 Hemoglobin A1c 6.4 % (4.5-5.6) H 06/04/23 06:36 Calcium 9.5 mg/dl (8.6-10.3) 06/06/23 05:53 Phosphorus 2.8 mg/dl (2.5-4.9) 06/04/23 06:36 Magnesium 2.1 mg/dl (1.7-2.4) 06/05/23 05:57 Iron 150 mcg/dl (35-175) 06/03/23 11:50 Unsaturated IBC 186 mcg/dl (155-355) 06/03/23 11:50 Transferrin 245 mg/dl (200-360) 06/03/23 11:50 Ferritin 394.2 ng/ml (8-388) H 06/03/23 11:50 Total Bilirubin 0.3 mg/dl (0.2-1.0) 06/03/23 11:50 AST 29 U/L (13-39) 06/03/23 11:50 ALT 27 U/L (7-52) 06/03/23 11:50 Alkaline Phosphatase 57 U/L (34-104) 06/03/23 11:50 Lactate Dehydrogenase 191 U/L (86-244) 06/04/23 09:13 Troponin I High Sens 8.9 pg/ml (0-20) 06/03/23 11:50 Total Protein 7.5 gm/dl (6.0-8.3) 06/03/23 11:50 Albumin 4.2 gm/dl (3.4-5.0) 06/03/23 11:50 Globulin 3.3 gm/dl (2.5-4.0) 06/03/23 11:50 Albumin/Globulin Ratio 1.3 (0.9-2) 06/03/23 11:50 Triglycerides 93 mg/dl (0-150) 06/04/23 06:36 Cholesterol 93 mg/dl (0-200) 06/04/23 06:36 LDL Cholesterol, Calc 34 mg/dl 06/04/23 06:36 VLDL Cholesterol, Calc 19 mg/dl (0-30) 06/04/23 06:36 HDL Cholesterol 40 mg/dl 06/04/23 06:36 Cholesterol/HDL Ratio 2.3 (0-5) 06/04/23 06:36 Lipase 28 U/L (11-82) 06/03/23 11:50 Vitamin B12 399 pg/ml (180-914) 06/03/23 14:14 Folate 22.25 ng/ml (>5.38) 06/03/23 14:14 Adenovirus (PCR) Not Detected (NotDetected) 06/03/23 11:50 B. pertussis DNA (PCR) Not Detected (NotDetected) 06/03/23 11:50 B.parapertussis DNA PCR Not Detected (NotDetected) 06/03/23 11:50 C. pneumoniae DNA (PCR) Not Detected (NotDetected) 06/03/23 11:50 Coronavirus OC43 (PCR) Not Detected (NotDetected) 06/03/23 11:50 Coronavirus HKU1 (PCR) Not Detected (NotDetected) 06/03/23 11:50 Coronavirus 229E (PCR) Not Detected (NotDetected) 06/03/23 11:50 SARS-CoV-2 (PCR) Not Detected (NotDetected) 06/03/23 11:50 Coronavirus NL63 (PCR) Not Detected (NotDetected) 06/03/23 11:50 Human Metapneumovir PCR Not Detected (NotDetected) 06/03/23 11:50 Influenza Type A (PCR) Not Detected (NotDetected) 06/03/23 11:50 Influenza Type B (PCR) Not Detected (NotDetected) 06/03/23 11:50 M. pneumoniae (PCR) Not Detected (NotDetected) 06/03/23 11:50 Parainfluenza 1 (PCR) Not Detected (NotDetected) 06/03/23 11:50 Parainfluenza 2 (PCR) Not Detected (NotDetected) 06/03/23 11:50 Parainfluenza 3 (PCR) Not Detected (NotDetected) 06/03/23 11:50 Parainfluenza 4 (PCR) Not Detected (NotDetected) 06/03/23 11:50 RSV (PCR) Not Detected (NotDetected) 06/03/23 11:50 Entero/Rhino (PCR) Not Detected (NotDetected) 06/03/23 11:50 Direct Antiglob Test Negative (Negative) 06/04/23 09:14 FRANKIE (IgG-AHG) Neg (Negative) 06/04/23 09:14 FRANKIE, Polyspecific Neg (Negative) 06/04/23 09:14 FRANKIE C3b, C3d 5 Min Neg (Negative) 06/04/23 09:14 Impressions Chest X-Ray 06/03/23 11:11 XR chest 1V portable HISTORY: 73 years-old Male Chest pain, nonspecific COMPARISON: 05/16/2018 TECHNIQUE: AP view the chest FINDINGS: Cardiac silhouette is enlarged. Median sternotomy. No pneumothorax, pleural effusion or airspace consolidation. Degenerative changes of the shoulders and spine. IMPRESSION: Cardiomegaly without acute process. ACT 112: Negative or not required by law. The above report was generated using voice recognition software. It may contain grammatical, syntax or spelling errors. Electronically signed by: Jay Vasquez M.D. 06/03/2023 11:[address] 06/03/23 11:12 CT head/brain wo con CLINICAL HISTORY: 73 years-old Male with Fall, hit head, on OAC. Acute head trauma status post fall TECHNIQUE: Multiple axial CT images of the head were obtained without contrast. A dose lowering technique was utilized adhering to the principles of ALARA. CT DOSE: 625.8 mGy.cm COMPARISON: Head CT 05/16/2018 FINDINGS: No acute intracranial hemorrhage, midline shift, intracranial mass, hydrocephalus, territorial ischemia or abnormal extra-axial collection. Involutional changes with chronic microvascular ischemic disease. Cerebrovascular calcifications. The calvarium is intact. Prior bilateral lens repair. The paranasal sinuses, mastoid air cells, and middle ear cavities are clear. IMPRESSION: No acute intracranial abnormality or calvarial fracture. ACT 112: Negative or not required by law. The above report was generated using voice recognition software. It may contain grammatical, syntax or spelling errors. Electronically signed by: Jay Vasquez M.D. 06/03/2023 11:37 AM Brain MRI 06/05/23 11:11 Exam(s): MRI HEAD W/WO Contrast IV Amt: 9cc gadavist EXAM: MR Head Without and With Intravenous Contrast CLINICAL HISTORY: Reason for exam: seizure like activity. TECHNIQUE: Magnetic resonance images of the head/brain without and with intravenous contrast in multiple planes. CONTRAST: Patient received 9cc gadavist of IV contrast COMPARISON: Comparison made to prior head CT from June 03, 2023. FINDINGS: Brain: Moderate nonspecific white matter changes. Remote ischemic injuries of the capsules. No mass. No hemorrhage. No acute infarct. The flow voids of the base of the brain are intact. Normal enhancement. The dural venous sinuses are patent. Ventricles: Unremarkable. No ventriculomegaly. Bones/joints: Hyperostosis frontalis interna. No acute fracture. Sinuses: Chronic ethmoid sinusitis. No acute sinusitis. Mastoid air cells: Unremarkable as visualized. No mastoid effusion. Orbits: Bilateral lens replacements. IMPRESSION: No evidence of acute intracranial pathology. Electronically signed by: Parul Multani MD 06/06/23 02:[address] 06/06/23 11:07 CT OF THE CHEST WITHOUT IV CONTRAST CLINICAL HISTORY: Cough. COMPARISON STUDY: Chest radiograph June 03, 2023. CT DOSE: 757.01 mGy.cm TECHNIQUE: Axial images of the chest were obtained without IV contrast. Images were reviewed in the axial, sagittal, and coronal planes. IV contrast was not administered for this examination. Automated exposure control was utilized for the study. A dose lowering technique was utilized adhering to the principles of ALARA. FINDINGS: No enlarged axillary, mediastinal or hilar lymph nodes are present. There is a loop recorder. Median sternotomy wires and postoperative findings consistent with bypass grafting are noted. There is extensive coronary artery calcification. Mild cardiomegaly. No pericardial effusion. No pneumothorax or pleural effusion is present. There is no consolidation to suggest pneumonia. A partially calcified 9 mm nodule within the superior segment of the right lower lobe on image 97 of 241 is present. A few healing bilateral rib fractures are present. No acute rib fractures are present. Visualized portions of the upper abdomen are unremarkable on unenhanced exam. IMPRESSION: 1. No consolidation to suggest pneumonia. 2. 9 mm partially calcified right lower lobe nodule. This is likely benign. A chest CT in 6 months to ensure stability is recommended. ACT 112: Negative or not required by law. Electronically signed by: Heber Parikh M.D. 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 --ECHO: Left ventricle wall motion is normal. EF 55%. Mild mitral regurgitation. Findings do not suggest pulmonary hypertension. Arctic root diameter is normal. Proximal ascending aorta is mildly dilated at 3.8 cm. Grade 2 diastolic dysfunction. --EEG:This is a normal awake and drowsy routine EEG. There is no evidence of focal slowing or epileptiform activity. --MRI Brain:No evidence of acute intracranial pathology. S/P new Loop insertion by on 06/04/23 Normal orthostatics Appreciate cardiology input Monitor and replace electrolytes as needed Continue carvedilol, amiodarone, Imdur, statin Needs follow-up with cardiology and neurology as outpatient Appreciate neurology input: Less likely suggestive of seizure. EEG showed no evidence of epilepticform discharges. Will likely need ambulatory EEG, MRI Will likely need ambulatory EEG as outpatient Advised to follow-up with cardiology, neurology as outpatient Chronic cough Right lower lobe pulmonary nodule Recent URI Patient attributes chronic cough due to chronic sinus issues/GERD --CT Chest:No consolidation to suggest pneumonia. 9 mm partially calcified right lower lobe nodule. This is likely benign. A chest CT in 6 months to ensure stability is recommended. 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 MDS No acute bleeding issues Normal iron panel, thiamine, folate levels Annia test negative Reticulocyte count 2.7 Normal LDH, bilirubin levels Peripheral smear concerning for MDS Appreciate oncology input Monitor CBC Will need bone marrow biopsy, follow-up with hematology as outpatient DVT Px: SCDs for now CODE STATUS FULL CODE Disposition Home Total Time Total Time Spent Total Time Spent (In Minutes): 60 minutes Discharge Plan Discharge Items Patient Disposition: Home - Self-Care Reason For Visit: SYNCOPAL EPISODE Discharge Diagnosis: Recurrent syncope and collapse Likely vasovagal Alcohol use disorder Macrocytic anemia Right lower lobe pulmonary nodule Activity: Per Instructions section Bathing: Keep incision dry Bathing Comment: can shower tomorrow just let water run over the incision do not scrub it Exercise/Sports: Gradually increase as tolerated Driving/Machine Use: No driving until cleared by ER primary care physician/neurologist Non-emergency contact: Primary Care Provider, Mobile Engineer, Oncologist and Rooter Operator Call non-emergency contact if: you have any medication questions, your symptoms worsen, your pain is concerning for you, you have a fever, your wound has increased redness, your wound has increased drainage and your wound pain has increased Follow-up/Referrals: [facility] [Other] (Date & Time 06/10/2023 8:30 AM Provider Haleigh Hicks [facility] Department Cardiology, [facility] ) Ajit Parekh DO [Outside Practitioners] - (Date & Time 06/12/2023 2:20 PM Provider Ajit Parekh DO Department Family Practice [facility] ) Frederick Yeager MD [Primary Care Provider] - Vijaya Castano PA-C [Physician Candy Feeder] - (Date & Time 06/26/2023 10:00 AM Provider Vijaya Castano PA-C Department Neurology [facility] ) Diet: Heart Healthy Add Attending Provider Instructions: Follow-up with your primary care physician in 1 week Follow-up with your senior product designer Dr. Mosley on 06/11/2023 at 11 AM as scheduled Follow-up with your automobile mechanic supervisor Dr.Abhishek Werner for further evaluation of your anemia as outpatient Follow-up with your neurologist Vijaya Castano PA-C on 06/26/2023 10:00 AM as scheduled --- Quit drinking alcohol as advised --- Driving not permitted until cleared by your primary care physician/neurologist -- Obtain CT chest in 6 months for further evaluation of pulmonary nodule which was incidentally noted on CT scan -- Get outpatient bone marrow biopsy for further evaluation of anemia as recomm ended by your Heme-oncologist --Consider obtaining outpatient ambulatory EEG as recommended by your neurologist Seek immediate medical attention if your symptoms reoccur or worsen Please take all medications as instructed on discharge list below. Please call if you have any questions or problems. You can reach a [facility] hospitalist on duty at [facility] 24 hours a day by calling [phone] Evelyn Precast Concrete Ironworker Provider Instructions: Device and wound check next Friday06/11/2023 at 11am Pending Studies at Discharge: No Stand-Alone Forms: My [facility] [employer], Smoking Cessation Medications and DC Order Prescriptions: New fluticasone propionate 50 mcg/actuation [place],Suspension 2 spray NA DAILY Qty: 16 0RF benzonatate 100 mg Capsule 100 mg PO TID PRN (Reason: cough) Qty: 30 0RF pantoprazole 40 mg Tablet,Delayed Release (Dr/Ec) 40 mg PO QAM Qty: 30 1RF hydrocodone-homatropine [Hydromet] 5-1.5 mg/5 mL Syrup 5 ml PO Q8H PRN (Reason: cough) Qty: 250 0RF thiamine HCl (vitamin B1) 100 mg Tablet 100 mg PO QAM Qty: 30 0RF folic acid 400 mcg Tablet 400 mcg PO QAM Qty: 30 0RF Continued multivitamin Tablet 1 tab PO DAILY latanoprost 0.005 % Drops 1 drp OPHTHALMIC (EYE) PM clopidogrel 75 mg Tablet 75 mg PO DAILY rosuvastatin 20 mg Tablet 20 mg PO DAILY sildenafil 50 mg tablet 10 mg PO DAILY PRN (Reason: Other) amiodarone 200 mg tablet 200 mg PO BID isosorbide mononitrate 30 mg tablet extended release 24 hr 30 mg PO DAILY venlafaxine 150 mg capsule,extended release 24hr 150 mg PO DAILY carvedilol 3.125 mg tablet 3.125 mg PO BID etodolac 400 mg tablet 400 mg PO BID PRN (Reason: Other) Discharge Orders: Discharge Order (Routine); Ordered 06/06/23 Ordered By: Sunil Adams/Other Patient Handouts: Prediabetes, 5 Steps for Eating Healthier Admission Data Admit Date/Time: 06/03/23 13:52 Attending Provider: Sunil Dela Cruz Admit Provider: Maria Isabel Danielle I. Primary Care Provider: Frederick Yeager Other Providers: Alvaro Vila; Maria Isabel Danielle I.; Jung Werner; Renetta Diamond; Chris Manley; Renetta Rivas; Jose Antonio Lund; Jaquan Frank; Sandeep Irwin; Eric Rivero; Vijaya Castano; Saulo Vieira; Abdirahman Veloz; Dari Sharma; Carlos Newsome; Consuelo Pineda; Ivelisse Arguello; Eric Hoffman
[2023-06-07] MEDS ORDERED: GABAPENTIN 600 MG TAB PO SCH (06:00)
[2023-06-08] MEDS ORDERED: GABAPENTIN 600 MG TAB PO SCH (18:00)
== END 2023-06-06 15:48 | disposition home or self-care (01) ==
LOC: ED 10:51 → INTOOBSV 13:52 → SUATTDRO 13:52 → 2S 13:52
DX: I25.10 Atherosclerotic heart disease of native coronary artery without angina pectoris; D72.819 Decreased white blood cell count, unspecified; Z79.02 Long term (current) use of antithrombotics/antiplatelets; F17.210 Nicotine dependence, cigarettes, uncomplicated; F10.10 Alcohol abuse, uncomplicated; R55 Syncope and collapse; Z87.828 Personal history of other (healed) physical injury and trauma; Z79.899 Other long term (current) drug therapy; Z68.31 Body mass index [BMI] 31.0-31.9, adult; R91.1 Solitary pulmonary nodule; Z95.1 Presence of aortocoronary bypass graft; Z88.8 Allergy status to other drugs, medicaments and biological substances; D53.9 Nutritional anemia, unspecified; I25.2 Old myocardial infarction; E66.9 Obesity, unspecified; R73.03 Prediabetes; R05.3 Chronic cough; Z87.09 Personal history of other diseases of the respiratory system; E87.1 Hypo-osmolality and hyponatremia

== ENCOUNTER 2024-03-11 09:33 | Inpatient (IN) ==
--- NOTE | 2024-03-11 10:00 | Emergency Department Note ---
History of Present Illness General Chief complaint: Unable to Void Stated complaint: FEVER, DIZZY, UNABLE TO VOID Time Seen by Provider: 03/11/24 09:41 History of Present Illness This is a 73-year-old male that presents to the emergency department via private vehicle with complaints of "trouble urinating, fever, dizzy". The patient notes that for the past 10 days he has had fever and then for the past few days notes headache, body aches, chills. Patient notes that he had his pacemaker placed about a week ago. He also notes he has a port to the right anterior chest. He is undergoing chemotherapy, last of which was administered earlier this month. The patient states that today he had blood work performed and while there he was noted to be febrile 101.8 F and was referred here for further assessment. The patient denies any chest pain or shortness of breath but does note some discomfort where the pacemaker is located on the left anterior chest. He also has had some cough and congestion but this is not necessarily new. No vomiting. No abdominal pain. Home Medications Medication Instructions Recorded Confirmed Type clopidogrel 75 mg tablet 75 mg PO DAILY 05/16/18 03/11/24 History latanoprost 0.005 % eye drops 1 drp ophthalmic (eye) PM 05/16/18 03/11/24 History multivitamin 1 tab PO DAILY 05/16/18 03/11/24 History rosuvastatin 20 mg tablet 20 mg PO DAILY 05/16/18 03/11/24 History sildenafil 50 mg tablet 10 mg PO DAILY PRN Other 06/03/23 03/11/24 History venlafaxine 150 mg 150 mg PO DAILY 06/03/23 03/11/24 History capsule,extended release 24 hr benzonatate 100 mg capsule 100 mg PO TID PRN cough #30 caps 06/06/23 03/11/24 Rx folic acid 400 mcg tablet 400 mcg PO QAM #30 tabs 06/06/23 03/11/24 Rx pantoprazole 40 mg tablet,delayed 40 mg PO QAM #30 tabs 06/06/23 03/11/24 Rx release thiamine HCl (vitamin B1) 100 mg 100 mg PO QAM #30 tabs 06/06/23 03/11/24 Rx tablet metoprolol succinate 25 mg 25 mg PO BID #180 tabs 10/23/24 10/31/24 Rx tablet,extended release 24 hr (Toprol XL) acyclovir 400 mg tablet 400 mg PO BID 03/11/24 03/11/24 History isosorbide mononitrate 30 mg 30 mg PO DAILY 03/11/24 03/11/24 History tablet,extended release 24 hr levofloxacin 500 mg tablet 500 mg PO DAILY 03/11/24 03/11/24 History posaconazole 100 mg tablet,delayed 300 mg PO DAILY 03/11/24 03/11/24 History release prochlorperazine maleate 10 mg 10 mg PO Q6H PRN nausea/vomiting 03/11/24 03/11/24 History tablet Allergies Allergy/AdvReac Type Severity Reaction Status Date / Time fluvastatin [From Lescol] AdvReac Joint Pain Verified 03/11/24 12:06 simvastatin [From Zocor] AdvReac Joint Pain Verified 03/11/24 12:06 Past Med/Surg History Problem List (Updated 03/11/24 @ 16:11 by Rinku Fang PA-C) Anemia (Acute) Fever (Acute) Acute on chronic anemia Illness (Acute) Cough syncope syndrome Macrocytic anemia Anemia CAD (coronary artery disease) Syncope and collapse (Acute) Medical History Heart attack Surgical History History of heart bypass surgery Family History Father Cancer Colonic polyp Heart disease Social History Smoking Status: Current every day smoker Tobacco Type: Cigarettes Second Hand Exposure: No; Do You Dip or Chew Tobacco: No; Hx Alcohol Use: No Hx Substance Use: No Preferred Language: Tunisian Communication Ability: Effective Magnesium Mill Operator Required: No Beliefs That Will Affect Care: None Current Living Situation: Alone Feels Safe at Home: Yes Safety Concerns: Feels Safe At This Time Assistive Devices: Glasses and Hearing Aid - Bilateral Review of Systems A total of 10 systems reviewed and were otherwise negative Physical Exam Vital Signs Vital Signs - 24 hr 03/11/24 09:34 03/11/24 10:43 Temperature 37.5 C Temperature Source Temporal Artery Scan Pulse Rate 74 73 Respiratory Rate 18 12 Blood Pressure 131/71 109/58 L Blood Pressure Mean 91 75 Pulse Oximetry 93 93 Oxygen Delivery Method Room Air Sepsis Recent Fever Within 48 Hours No Sepsis New/Unexplained Change in Mental Status N/A Sepsis Action Taken by Nursing No Action Required VITAL SIGNS - Vital signs and nursing notes were reviewed. Stable and afebrile. GENERAL -73-year-old male appearing his stated age who is in no acute distress. Communicates well with provider and answers questions appropriately. SKIN - Without rashes. No meningeal or petechial rash. There are healing incisions noted to the left anterior chest consistent with recent pacemaker placement. There is slight protrusion to the right anterior chest wall consistent with recent port placement as well. No signs of surrounding erythema or edema. No dehiscence of the wounds. HEAD - NC/AT. EYES - PERRL with EOMI bilaterally. Sclera anicteric. EARS - No deformities of external structures noted on gross examination bilaterally. External auditory canals without discharge or otorrhea. Tympanic membranes pearly william without retraction or bulging. No fluid or purulent material visualized behind the TM. Handle of malleus, umbo, cone of light, pars tensa/flaccid all easily visualized. NOSE - Midline and without cyanosis. No epistaxis or purulent drainage noted. Septum midline without deviation or septal hematoma noted. MOUTH/OROPHARYNX - Without perioral cyanosis. Buccal mucosa pink and moist and without leukoplakia. Tongue midline with equal elevation of palate bilaterally. No tonsillar hypertrophy, erythema, or exudates noted. Good dentition noted. NECK - Neck with FROM. No nuchal rigidity. LUNGS - Chest wall symmetric without accessory muscle use, intercostals retractions, or central cyanosis. Normal vesicular breath sounds CTA B/L. No wheezes, rales, or rhonchi appreciated. CARDIAC - RRR ABDOMEN - Abdominal contour normal without pulsations or visible masses. BS normoactive all four quadrants. No tenderness, palpable masses, hepatosplenomegaly, or ascites noted. EXTREMITIES - No clubbing or peripheral cyanosis. +5/5 strength noted in UE/LE bilaterally. NEUROLOGIC - Cranial nerves II through XII grossly intact. PSYCH -alert, oriented and pleasant on exam. pt is very pleasant and interacts well with examiner. Course Administered Medications Acetaminophen (Acetaminophen 325 Mg Tab) 650 mg PO Q4H PRN PRN Reason: Pain or Fever Stop: 04/10/24 14:08 Last Admin: 03/11/24 15:04 Dose: 650 mg Documented By: EBEN Lactobacillus Acidophilus (Advanced Probiotic 625 Mg Capsule) 1,250 mg PO DAILY ANTONI Stop: 04/10/24 14:08 Last Admin: 03/11/24 15:09 Dose: 1,250 mg Documented By: EBEN Miscellaneous (Posaconazole ~ Order Awaiting Action) 1 each N/A QS ANTONI Stop: 04/10/24 15:59 Last Admin: 03/11/24 15:05 Dose: Not Given Documented By: EBEN Discontinued Medications Cefepime HCl (Maxipime 2000mg) 2,000 mg in 20 mls @ 5 mls/min IV NOW STA; Protocol Stop: 03/11/24 11:42 Last Admin: 03/11/24 11:45 Dose: 5 mls/min Documented By: ZE Critical Care Time I have personally spent about 42 minutes of critical care time in the direct management of this patient. This includes bedside care, interpretation of diagnostic studies, and testing, discussion with consultants, patient and other required patient management activities. This 42 minutes is in excess of all separately billable procedures. Medical Decision Making Laboratory Data 03/11/24 10:10 03/11/24 10:10 Lab Results 03/11/24 03/11/24 03/11/24 Range/Units 10:10 10:13 10:30 WBC 3.81 L (4.8-10.8) K/ul RBC 1.74 L (4.70-6.10) M/uL Hgb 6.9 L* (14.0-18.0) g/dl Hct 19.6 L* (42.0-52.0) % MCV 112.6 H (80.0-100.0) fL MCH 39.7 H (25.0-34.0) pg MCHC 35.2 (32.0-36.0) g/dL RDW Std Deviation 68.0 H (36.4-46.3) fL RDW Coeff of Alejandro 16.8 H (11.5-14.5) % Plt Count 106 L (130-400) K/uL MPV 12.1 (9.4-12.4) fL Immature Gran % (Auto) 1.3 % Neut % (Auto) 69.9 % Lymph % (Auto) 21.0 % Price % (Auto) 7.3 % Eos % (Auto) 0.0 % Baso % (Auto) 0.5 % Neut # (Auto) 2.66 (1.40-6.50) K/uL Lymph # (Auto) 0.80 L (1.20-3.40) K/uL Price # (Auto) 0.28 (0.11-0.59) K/uL Eos # (Auto) 0.00 (0.00-0.50) K/uL Baso # (Auto) 0.02 (0.00-0.20) K/uL Immature Gran # (Auto) 0.05 (0.01-0.20) K/uL Polychromasia 2+ Macrocytosis Present Tear Drop Cells 1+ Ovalocytes 2+ PT 11.7 (9.0-12.0) Seconds INR 1.1 (0.9-1.1) APTT 25 (21-31) Seconds PTT Ratio 0.9 Sodium 133 L (136-145) mmol/L Potassium 4.0 (3.5-5.1) mmol/L Chloride 99 (98-107) mmol/L Carbon Dioxide 26 (21-32) mmol/L Anion Gap 8 (3-11) BUN 15 (6-23) mg/dl Creatinine 1.05 (0.6-1.4) mg/dl Est Cr Clr Drug Dosing 69.8 ml/min eGFR 74.95 BUN/Creatinine Ratio 14.3 (10-20) Glucose 92 (70-99(Fasting)) mg/dl Lactate 1.2 (0.4-2.0) mmol/L Calcium 8.8 (8.6-10.3) mg/dl Total Bilirubin 0.8 (0.2-1.0) mg/dl AST 20 (13-39) U/L ALT 11 (7-52) U/L Alkaline Phosphatase 42 (34-104) U/L Total Protein 6.5 (6.0-8.3) gm/dl Albumin 3.7 (3.4-5.0) gm/dl Globulin 2.8 (2.5-4.0) gm/dl Albumin/Globulin Ratio 1.3 (0.9-2) Procalcitonin 0.12 (0-0.5) ng/ml TSH 0.596 (0.300-4.500) uIu/ml Urine Color Dark Yellow Urine Appearance Clear (Clear) Urine pH 6.5 (4.5-7.5) Ur Specific [place] 1.019 (1.000-1.030) Urine Protein Negative (Negative) Urine Glucose (UA) Negative (Negative) Urine Ketones Negative (Negative) Urine Blood Negative (Negative) Urine Nitrite Negative (Negative) Urine Bilirubin Negative (Negative) Urine Urobilinogen Negative (Negative) Ur Leukocyte Esterase Negative (Negative) Adenovirus (PCR) Not Detected (NotDetected) Anaplasma Smear See Comment Babesia Smear See Comment B. pertussis DNA (PCR) Not Detected (NotDetected) B.parapertussis DNA PCR Not Detected (NotDetected) Lyme Disease Screen Negative (Negative) C. pneumoniae DNA (PCR) Not Detected (NotDetected) Coronavirus OC43 (PCR) Not Detected (NotDetected) Coronavirus HKU1 (PCR) Not Detected (NotDetected) Coronavirus 229E (PCR) Not Detected (NotDetected) SARS-CoV-2 (PCR) Not Detected (NotDetected) Coronavirus NL63 (PCR) Not Detected (NotDetected) Human Metapneumovir PCR Not Detected (NotDetected) Influenza Type A (PCR) Not Detected (NotDetected) Influenza Type B (PCR) Not Detected (NotDetected) M. pneumoniae (PCR) Not Detected (NotDetected) Parainfluenza 1 (PCR) Not Detected (NotDetected) Parainfluenza 2 (PCR) Not Detected (NotDetected) Parainfluenza 3 (PCR) Not Detected (NotDetected) Parainfluenza 4 (PCR) Not Detected (NotDetected) RSV (PCR) Not Detected (NotDetected) Entero/Rhino (PCR) Not Detected (NotDetected) Blood Type Antibody Screen Crossmatch 03/11/24 Range/Units 11:24 WBC (4.8-10.8) K/ul RBC (4.70-6.10) M/uL Hgb (14.0-18.0) g/dl Hct (42.0-52.0) % MCV (80.0-100.0) fL MCH (25.0-34.0) pg MCHC (32.0-36.0) g/dL RDW Std Deviation (36.4-46.3) fL RDW Coeff of Alejandro (11.5-14.5) % Plt Count (130-400) K/uL MPV (9.4-12.4) fL Immature Gran % (Auto) % Neut % (Auto) % Lymph % (Auto) % Price % (Auto) % Eos % (Auto) % Baso % (Auto) % Neut # (Auto) (1.40-6.50) K/uL Lymph # (Auto) (1.20-3.40) K/uL Price # (Auto) (0.11-0.59) K/uL Eos # (Auto) (0.00-0.50) K/uL Baso # (Auto) (0.00-0.20) K/uL Immature Gran # (Auto) (0.01-0.20) K/uL Polychromasia Macrocytosis Tear Drop Cells Ovalocytes PT (9.0-12.0) Seconds INR (0.9-1.1) APTT (21-31) Seconds PTT Ratio Sodium (136-145) mmol/L Potassium (3.5-5.1) mmol/L Chloride (98-107) mmol/L Carbon Dioxide (21-32) mmol/L Anion Gap (3-11) BUN (6-23) mg/dl Creatinine (0.6-1.4) mg/dl Est Cr Clr Drug Dosing ml/min eGFR BUN/Creatinine Ratio (10-20) Glucose (70-99(Fasting)) mg/dl Lactate (0.4-2.0) mmol/L Calcium (8.6-10.3) mg/dl Total Bilirubin (0.2-1.0) mg/dl AST (13-39) U/L ALT (7-52) U/L Alkaline Phosphatase (34-104) U/L Total Protein (6.0-8.3) gm/dl Albumin (3.4-5.0) gm/dl Globulin (2.5-4.0) gm/dl Albumin/Globulin Ratio (0.9-2) Procalcitonin (0-0.5) ng/ml TSH (0.300-4.500) uIu/ml Urine Color Urine Appearance (Clear) Urine pH (4.5-7.5) Ur Specific [place] (1.000-1.030) Urine Protein (Negative) Urine Glucose (UA) (Negative) Urine Ketones (Negative) Urine Blood (Negative) Urine Nitrite (Negative) Urine Bilirubin (Negative) Urine Urobilinogen (Negative) Ur Leukocyte Esterase (Negative) Adenovirus (PCR) (NotDetected) Anaplasma Smear Babesia Smear B. pertussis DNA (PCR) (NotDetected) B.parapertussis DNA PCR (NotDetected) Lyme Disease Screen (Negative) C. pneumoniae DNA (PCR) (NotDetected) Coronavirus OC43 (PCR) (NotDetected) Coronavirus HKU1 (PCR) (NotDetected) Coronavirus 229E (PCR) (NotDetected) SARS-CoV-2 (PCR) (NotDetected) Coronavirus NL63 (PCR) (NotDetected) Human Metapneumovir PCR (NotDetected) Influenza Type A (PCR) (NotDetected) Influenza Type B (PCR) (NotDetected) M. pneumoniae (PCR) (NotDetected) Parainfluenza 1 (PCR) (NotDetected) Parainfluenza 2 (PCR) (NotDetected) Parainfluenza 3 (PCR) (NotDetected) Parainfluenza 4 (PCR) (NotDetected) RSV (PCR) (NotDetected) Entero/Rhino (PCR) (NotDetected) Blood Type O Positive Antibody Screen NEGATIVE Crossmatch See Detail Imaging Data Radiologist's Impression: Chest X-Ray 03/11/24 09:57 XR chest 1V portable CLINICAL HISTORY: fever, recent pacemaker TECHNIQUE: Single frontal radiograph of the chest was obtained. Comparison: Comparison is made to chest radiograph 03/03/2024 FINDINGS: Lines and tubes are stable. Cardiomegaly is noted. The aortic arch is calcified. The lungs are clear. No evidence of pleural effusion or pneumothorax. IMPRESSION: No acute abnormalities and in particular no radiographic evidence of pneumonia. ACT 112: Negative or not required by law. Electronically signed by: Vinod Keane M.D. 03/11/2024 10:47 AM MDM Narrative Patient was seen and evaluated as above in room D03. Review was performed of triage nursing notes and vital signs. I did review pertinent previous visits and patient history. After obtaining a thorough history and physical examination the above work up was performed. Patient presents today for assessment of fever, body aches and overall feeling unwell. EKG was performed as well as pacemaker interrogation. Per my interpretation EKG reveals normal sinus rhythm at rate of 77 bpm. QTc 470. QRS 86. No ST elevation. IV access was established. Labs were drawn. Chest x-ray was performed. Per my interpretation this is stable without acute process. Labs reveal leukopenia with WBC 3.1. Hemoglobin decreased now 6.9. Patient denies any history of transfusion. The patient at this time I do believe would benefit from transfusion. He denies any dark or tarry stools. He denies any rectal bleeding. Platelet count 106. Coags normal. Mild hyponatremia 133. No evidence of kidney or liver failure. Lactate and Pro-Claudy within normal range. TSH reveals euthyroid state. Urinalysis does not suggest infection. Bio fire panel negative. Blood cultures pending at this time. I did discuss presentation with the patient's established oncologist, Dr. Pisano. We will proceed with further evaluation and management in the inpatient setting. Patient was typed and crossed with 1 unit PRBCs leukoreduced. I did discuss this with Dr. Pisano, patient's oncologist and at this time leukoreduced are okay, do not need to use irradiated at the present time. Also agree with IV cefepime. This was ordered. I do believe the patient would benefit from hospitalization at this time. Case discussed with the hospitalist service. Please refer to further documentation regarding patient's stay. GCS: 15 In the evaluation and treatment of this patient the following differential diagnoses were entertained: Pneumonia, UTI, bacteremia, infected hardware, among others. Impression & Plan Fever, Anemia, Illness Discharge Plan Visit Data Chief Complaint: Unable to Void Stated Complaint: FEVER, DIZZY, UNABLE TO VOID ED Provider: Angel Pisano ED Midlevel Provider: Rinku Fang Discharge Problem: Fever, Anemia, Illness Patient Disposition: Admitted As Inpatient Condition: Good Discharge Instructions Interventions: ED Discharge Assessment Last Done: 03/11/24 13:35
[2024-03-11 10:47] LABS: Mean Corpuscular Hemoglobin 39.7 pg (25.0-34.0); Mean Corpuscular Hgb Conc 35.2 g/dL (32.0-36.0); Mean Corpuscular Volume 112.6 fL (80.0-100.0); Mean Platelet Volume 12.1 fL (9.4-12.4); Platelet Count 106 K/uL (130-400); RDW Coefficient of Variation 16.8 % (11.5-14.5); Red Blood Count 1.74 M/uL (4.70-6.10); White Blood Count 3.81 K/ul (4.8-10.8)
--- NOTE | 2024-03-11 10:49 | XRay Report ---
XR chest 1V portable CLINICAL HISTORY: fever, recent pacemaker TECHNIQUE: Single frontal radiograph of the chest was obtained. Comparison: Comparison is made to chest radiograph 03/03/2024 FINDINGS: Lines and tubes are stable. Cardiomegaly is noted. The aortic arch is calcified. The lungs are clear. No evidence of pleural effusion or pneumothorax. IMPRESSION: No acute abnormalities and in particular no radiographic evidence of pneumonia. ACT 112: Negative or not required by law. Electronically signed by: Vinod Keane M.D. 03/11/2024 10:47 AM
[2024-03-11 10:50] LABS: Appearance Urine Clear (Clear); Bilirubin Urine Negative (Negative); Blood Urine Negative (Negative); Color Urine Dark Yellow; Glucose Urine UA Negative (Negative); Ketones Urine Negative (Negative); Leukocyte Esterase Urine Negative (Negative); Nitrite Urine Negative (Negative); Protein Urine Negative (Negative); Specific Gravity Urine 1.019 (1.000-1.030); Urobilinogen Urine Negative (Negative); pH Urine 6.5 (4.5-7.5)
[2024-03-11 10:52] LABS: Hematocrit (blood only) 19.6 % (42.0-52.0); Hemoglobin 6.9 g/dl (14.0-18.0)
[2024-03-11 10:55] LABS: Albumin Globulin Ratio 1.3 (0.9-2); Albumin Level 3.7 gm/dl (3.4-5.0); BUN Creatinine Ratio 14.3 (10-20); Bilirubin,Total 0.8 mg/dl (0.2-1.0); Calcium 8.8 mg/dl (8.6-10.3); Creatinine Clr Calc Pharmacy 69.8 ml/min; Globulin 2.8 gm/dl (2.5-4.0); Total Protein 6.5 gm/dl (6.0-8.3)
[2024-03-11 11:04] LABS: Basophils # (auto) 0.02 K/uL (0.00-0.20); Basophils % (auto) 0.5 %; Immature Granulocytes # (auto) 0.05 K/uL (0.01-0.20); Immature Granulocytes % (auto) 1.3 %; Macrocytosis Present; Monocytes # (auto) 0.28 K/uL (0.11-0.59); Monocytes % (auto) 7.3 %; Neutrophils # (auto) 2.66 K/uL (1.40-6.50); Neutrophils % (auto) 69.9 %; Ovalocytes 2+; Polychromasia 2+; Tear Drop Cells 1+
[2024-03-11 11:05] LABS: INR 1.1 (0.9-1.1); Partial Thromboplastin Ratio 0.9; Partial Thromboplastin Time 25 Seconds (21-31); Prothrombin Time 11.7 Seconds (9.0-12.0)
[2024-03-11 11:07] LABS: Procalcitonin 0.12 ng/ml (0-0.5)
[2024-03-11 11:08] LABS: Thyroid Stimulating Hormone 0.596 uIu/ml (0.300-4.500)
[2024-03-11] MEDS ORDERED: SODIUM CHLORIDE 0.9% 100 ML IV PRN ×4 (11:11→19:53)
[2024-03-11] MEDS ORDERED: SODIUM CHLORIDE 0.9% 50 ML IV PRN ×4 (11:11→19:53)
[2024-03-11 11:20] LABS: Adenovirus PCR Not Detected (NotDetected); Bordetella parapertussis PCR Not Detected (NotDetected); Bordetella pertussis PCR Not Detected (NotDetected); Chlamydia pneumoniae PCR Not Detected (NotDetected); Coronavirus 229E PCR Not Detected (NotDetected); Coronavirus CoV-2 (COVID19)PCR Not Detected (NotDetected); Coronavirus HKU1 PCR Not Detected (NotDetected); Coronavirus NL63 PCR Not Detected (NotDetected); Coronavirus OC43PCR Not Detected (NotDetected); Human Metapneumovirus PCR Not Detected (NotDetected); Influenza A PCR Not Detected (NotDetected); Influenza B PCR Not Detected (NotDetected); Mycoplasma pneumoniae PCR Not Detected (NotDetected); Parainfluenza Virus 1 PCR Not Detected (NotDetected); Parainfluenza Virus 2 PCR Not Detected (NotDetected); Parainfluenza Virus 3 PCR Not Detected (NotDetected); Parainfluenza Virus 4 PCR Not Detected (NotDetected); Respiratory Syncytial VirusPCR Not Detected (NotDetected); Rhinovirus/Enterovirus PCR Not Detected (NotDetected)
--- NOTE | 2024-03-11 11:29 | History & Physical Report ---
Date of Service March 11, 2024 Assessment & Plan (1) Illness: (2) Acute on chronic anemia: Plan Mikie Leon (Ken) is a 73y/o M with PMHx significant for CAD s/p CABG x 3 [2009], atrial fibrillation [not currently on anticoagulation therapy], HTN, HLD, PVCs, complete heart block s/p dual-chamber pacemaker placement [02/2024], grade II diastolic dysfunction, mild mitral regurgitation, GERD, myelodysplastic syndrome [currently undergoing chemotherapy], refractory cytopenia with multilineage dysplasia, macrocytic anemia [baseline Hgb ~9-10], neutropenia, history of alcohol use disorder and depression/anxiety who presented to the ED for evaluation of multiple constitutional symptoms. Patient was referred to the ED today by Dr. Saurabh Pisano [Hematology/Oncology] after being seen at [facility]. Patient was notably feverish in the office with a temperature of 101.8F. He was also complaining of some shortness of breath, generalized malaise, lightheadedness/dizziness and difficulty with urination. Dr. Pisano was concerned that the patient may have developed an infection and therefore sent him to the ED for further evaluation. Patient is currently undergoing chemotherapy [Vidaza] for management of myelodysplastic syndrome. Rest of history of per HPI. Pacemaker site Infection acemaker insertion site appears infected with notable surrounding erythema, skin breakdown and serous drainage. His pacemaker was placed on 03/03/[address] Mosley. Changed IV ABX to daptomycin + Zosyn. He continues to spike fevers. Blood cultures pending. Cardiology and infectious diseases consulted for further recommendations/input. Will keep him NPO at midnight pending possible need for surgical intervention. Acute on Chronic Anemia: Hgb 6.9 on presentation. Typical baseline Hgb ~9-10, however it does seem to be downtrending (9-->8-->7) over the past month per chart review. Blood consent obtained in the ED. 1 unit PRBCs ordered to be given. Repeat H/H to be completed ~1 hour following completion of the transfusion. Anemia panel in AM. Continue to monitor his Hgb level and transfuse PRN. Myelodysplastic Syndrome: Patient follows with Dr. Saurabh Pisano as per above. He is currently undergoing chemotherapy with Vidaza. He has also been receiving biweekly Aranesp injections and weekly G-CSF injection since September 2023. 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 Neutropenic precautions. Complete Heart Block S/P Pacemaker Placement: He had a dual-chamber pacemaker placed on 03/03/[address] Mosley for treatment of a complete heart block. He has noticed some increased erythema around the bandage covering his pacemaker insertion site however he believes he may be allergic to the adhesive. He was supposed to have the bandage removed today at the [facility]. Tobacco Use Disorder: Smokes ~0.5 pack/day. Smoking cessation encouraged. Patient denies need for nicotine patch at this time. Other Chronic Medical Conditions: CAD, anxiety/depression, GERD, atrial fibrillation/HTN --> Can continue home medications for these specific conditions. Hold home rosuvastatin for now ISO daptomycin use. DVT Prophylaxis: SCDs/TEDs for now ISO acute on chronic anemia. Code Status: FULL CODE PCP: Ajit Parekh DO Disposition: Admit to Med/Surg + Telemetry Patient seen in collaboration with Dr. Multani. Please see addendum. I spent a total of 65 minutes coordinating, documenting, and providing care for this patient excluding time spent in the performance of separately billed services. This included personally reviewing all current laboratories and imaging studies, medical reconciliation, outpatient chart review and discussion with specialists. This chart was completed in part utilizing Speech Voice Recognition Software. Grammatical errors, random word insertions, pronoun errors, and incomplete sentences are an occasional consequence of this system due to software limitations, ambient noise, and hardware issues. Any formal questions or concerns about the content, text, or information contained within the body of this dictation should be directly addressed to the provider for clarification. History of Present Illness Chief Complaint: Constitutional Symptoms Primary Care Provider: Ajit Parekh DO Mikie Leon (Ken) is a 73y/o M with PMHx significant for CAD s/p CABG x 3 [2009], atrial fibrillation, PVCs, complete heart block s/p dual-chamber pacemaker placement [02/2024], grade II diastolic dysfunction, mild mitral regurgitation, GERD, myelodysplastic syndrome [currently undergoing chemotherapy], refractory cytopenia with multilineage dysplasia, macrocytic anemia [baseline Hgb ~9-10], neutropenia and depression/anxiety who presented to the ED for evaluation of multiple constitutional symptoms. History obtained from patient and associated chart review. Patient was referred to the ED today by Dr. Saurabh Pisano [Hematology/Oncology] after being seen at [facility]. Patient was notably feverish in the office with a temperature of 101.8F. He was also complaining of some shortness of breath, generalized malaise, lightheadedness/dizziness and difficulty with urination. Dr. Pisano was concerned that the patient may have developed an infection and therefore sent him to the ED for further evaluation. Patient is currently undergoing chemotherapy [Vidaza] for management of myelodysplastic syndrome. He has also been receiving biweekly Aranesp injections since September 2023 in addition to weekly granulocyte colony-stimulating factor (G-CSF) injections, which were also started in September 2023. Patient reports that he has been feeling more fatigued for the past 10 days or so. Of note, he had a dual-chamber pacemaker placed on 03/03/[address] Mosley for treatment of a complete heart block. He has noticed some increased redness around the bandage covering his pacemaker site (left upper chest wall), however he believes he may be allergic to the adhesive. He has not noticed any drainage from the site but he has not yet removed the bandage to see what is going on underneath. He was supposed to have the bandage removed today at the [facility]. In addition to the fatigue, the patient has also been experiencing intermittent chills/body aches as well as "feeling feverish" however he did not previously take his temperature at home. He has also been having some headaches here and there. He has a chronic cough at baseline that has been worked up as an outpatient however no definitive diagnosis has come about. However he has been feeling more short of breath over the past couple days, especially when he experiences "coughing fits." He does not use oxygen at baseline however he does smoke about half a pack of cigarettes per day, which he has been doing so for approximately 20 years. He has not been drinking "for a while," however he did previously drink 4-6 beers a day. He notes that his cough can sometimes be productive of clear to whitish sputum. He has not noticed an increase in the amount of sputum production or discoloration of his sputum recently. He has also been dealing with some lightheadedness/dizziness as well but denies any recent falls or trauma. No visual changes that he recalls. His appetite has been significantly reduced lately since starting the chemotherapy however he is trying to hydrate well. He does have a port in his right upper chest wall. He has not noticed any surrounding erythema around this site or any drainage from the site either. He denies any chest pain, abdominal pain or diarrhea. No nausea or vomiting. Reports he was constipated a few weeks ago but that has since resolved after using Miralax and increasing his daily water intake. He does however report some urinary flow issues lately. Mentions that his urine does not typically flow at a constant rate, but rather stops/starts intermittently. He denies any known history of BPH. No blood noted in either his urine nor stool. Thankfully it is not painful for him to urinate. He has not noticed any recent increase in his urinary frequency. Postvoid residual screening in the ED was unremarkable. Allergies Allergy/AdvReac Type Severity Reaction Status Date / Time fluvastatin [From Lescol] AdvReac Joint Pain Verified 03/11/24 12:06 simvastatin [From Zocor] AdvReac Joint Pain Verified 03/11/24 12:06 Home Medications Medication Instructions Recorded Confirmed Type clopidogrel 75 mg tablet 75 mg PO DAILY 05/16/18 03/11/24 History latanoprost 0.005 % eye drops 1 drp ophthalmic (eye) PM 05/16/18 03/11/24 History multivitamin 1 tab PO DAILY 05/16/18 03/11/24 History rosuvastatin 20 mg tablet 20 mg PO DAILY 05/16/18 03/11/24 History sildenafil 50 mg tablet 10 mg PO DAILY PRN Other 06/03/23 03/11/24 History venlafaxine 150 mg 150 mg PO DAILY 06/03/23 03/11/24 History capsule,extended release 24 hr benzonatate 100 mg capsule 100 mg PO TID PRN cough #30 caps 06/06/23 03/11/24 Rx folic acid 400 mcg tablet 400 mcg PO QAM #30 tabs 06/06/23 03/11/24 Rx pantoprazole 40 mg tablet,delayed 40 mg PO QAM #30 tabs 06/06/23 03/11/24 Rx release thiamine HCl (vitamin B1) 100 mg 100 mg PO QAM #30 tabs 06/06/23 03/11/24 Rx tablet metoprolol succinate 25 mg 25 mg PO BID #180 tabs 03/03/24 03/11/24 Rx tablet,extended release 24 hr (Toprol XL) acyclovir 400 mg tablet 400 mg PO BID 03/11/24 03/11/24 History isosorbide mononitrate 30 mg 30 mg PO DAILY 03/11/24 03/11/24 History tablet,extended release 24 hr levofloxacin 500 mg tablet 500 mg PO DAILY 03/11/24 03/11/24 History posaconazole 100 mg tablet,delayed 300 mg PO DAILY 03/11/24 03/11/24 History release prochlorperazine maleate 10 mg 10 mg PO Q6H PRN nausea/vomiting 03/11/24 03/11/24 History tablet Past Med/Surg History Problem List (Updated 03/11/24 @ 17:51 by Alvaro Vila DO) Myelodysplastic syndrome Infection of pacemaker pocket Anemia (Acute) Fever (Acute) Acute on chronic anemia Illness (Acute) Cough syncope syndrome Macrocytic anemia Anemia CAD (coronary artery disease) Syncope and collapse (Acute) Medical History Heart attack Surgical History History of heart bypass surgery Family History Father Cancer Colonic polyp Heart disease Social History Smoking Status: Current every day smoker Tobacco Type: Cigarettes Second Hand Exposure: No; Do You Dip or Chew Tobacco: No; Hx Alcohol Use: No Hx Substance Use: No Preferred Language: Lao Communication Ability: Effective Excelsior Machine Feeder Required: No Beliefs That Will Affect Care: None Current Living Situation: Alone Feels Safe at Home: Yes Safety Concerns: Feels Safe At This Time Assistive Devices: Glasses and Hearing Aid - Bilateral Review of Systems Review of Systems: At least ten systems reviewed and negative, except as noted in the HPI. Physical Exam Physical Exam: General: WD/WN, vitals as above, NAD, sitting up in bed, very pleasant, conversing appropriately. A+Ox3, euthymic affect. HEENT: Normocephalic, atraumatic. PERRL, conjunctivae normal, anicteric sclerae. External ear and nose normal, oropharynx slightly dry. Respiratory: Normal respiratory effort, lungs clear to auscultation, no wheeze, rales, rhonchi. No accessory muscle use. Cardiovascular: Regular rate, rhythm, no murmur, normal peripheral pulses, trace BLE edema. Vessels: No JVD. Abdomen/GI: Normal bowel sounds, soft, nontender, no hepatosplenomegaly. Extremities/Musculoskeletal: No cyanosis or clubbing, extremities motor strength intact, moves all extremities. Neurologic: EOMI, no focal deficits, CN's II-XI not formally tested but appear grossly intact bilaterally. Skin: R-sided chest port without erythema/drainage. Bandage covering the pacemaker insertion site on the L upper chest wall with some surrounding erythema. Results & Data Results & Data Vital Signs (Past 12 Hours) Vital Signs Temp Pulse Resp BP Pulse Ox O2 Del Method 03/11/24 10:43 73 12 109/58 L 93 Room Air 03/11/24 09:34 37.5 C 74 18 131/71 93 Laboratory Results Short CBC 03/11/24 Range/Units 10:10 WBC 3.81 L (4.8-10.8) K/ul Hgb 6.9 L* (14.0-18.0) g/dl Hct 19.6 L* (42.0-52.0) % Plt Count 106 L (130-400) K/uL BMP 03/11/24 10:10 Sodium 133 L Potassium 4.0 Chloride 99 Carbon Dioxide 26 BUN 15 Creatinine 1.05 Glucose 92 Calcium 8.8 Liver Function 03/11/24 Range/Units 10:10 Total Bilirubin 0.8 (0.2-1.0) mg/dl AST 20 (13-39) U/L ALT 11 (7-52) U/L Alkaline Phosphatase 42 (34-104) U/L Albumin 3.7 (3.4-5.0) gm/dl Urine 03/11/24 Range/Units 10:30 Urine Color Dark Yellow Urine Appearance Clear (Clear) Urine pH 6.5 (4.5-7.5) Ur Specific Antimony 1.019 (1.000-1.030) Urine Protein Negative (Negative) Urine Glucose (UA) Negative (Negative) Diagnostic Findings Chest X-Ray 03/11/24 09:57 XR chest 1V portable CLINICAL HISTORY: fever, recent pacemaker TECHNIQUE: Single frontal radiograph of the chest was obtained. Comparison: Comparison is made to chest radiograph 03/03/2024 FINDINGS: Lines and tubes are stable. Cardiomegaly is noted. The aortic arch is calcified. The lungs are clear. No evidence of pleural effusion or pneumothorax. IMPRESSION: No acute abnormalities and in particular no radiographic evidence of pneumonia. ACT 112: Negative or not required by law. Electronically signed by: Vinod Keane M.D. 03/11/2024 10:47 AM Medications Administered Discontinued Medications Cefepime HCl (Maxipime 2000mg) 2,000 mg in 20 mls @ 5 mls/min IV NOW STA; Protocol Stop: 03/11/24 11:42 Last Admin: 03/11/24 11:45 Dose: 5 mls/min Documented By: SLD Code Status & VTE Plan Code Status FULL CODE Supervising Physician Co-Signing Physician Notes Attending Addendum: Case reviewed with the advanced practitioner. I have personally performed a history and physical examination on the patient. I have reviewed the advanced practitioner's documentation on the date of service referenced in note, and I agree with, and take responsibility for the plan of care. please refer to her notes for full details patient seen and examined, records reviewed by myself as well on exam, patient seen resting in bed, not in distress (+) fever of 39 degrees per RN reports pain over the pacemaker site and shoulder no bleeding, melena/hematochezia no other symptoms VS noted and reviewed oriented x 3, not in distress, speaks in sentences with no effort nor accessory muscle use normal rate, regular rhythm, no murmurs clear breath sounds bilaterally R chest wall pacemaker site: (+) incision site with a small opening, with some serosanguinous drainage, significant erythema, and tenderness non distended, soft, nontender no bipedal edema, erythema, warmth no neuro deficits all labs, imaging noted and reviewed ASSESSMENT AND PLAN> PACEMAKER SITE INFECTION pacemaker placed Mar 04, 2024 for complete heart block, syncope blood cultures obtained IV Dapto + Zosyn Stone Planer consulted- for removal of pacemaker tomorrow ID also consulted PANCYTOPENIA MDS follows with Dr. Pisano started on chemo 1st week of February (+) weakness, shortness of breath; Hg 6.8 (from 9 earlier this month), no signs of bleeding 1 unit PRBC ordered at the ER--> Hg increased to 7.6 in light of history of CAD, Hg goal > 8, another unit of PRBC ordered anemia panel ordered ANC normal Plt around the same compared to early February repeat CBC tomorrow other diagnoses and plan of care as per advanced practitioner's notes Denver Multani MD
[2024-03-11 11:33] LABS: Lyme Screen Rflx Confirmation Negative (Negative)
[2024-03-11] MEDS: CEFEPIME 2000MG 2,000 MG/20 ML SYR IV STA (11:45)
--- OUTSIDE RECORDS SUMMARY | 2024-03-11 12:04 | External Medical Summary | Summary of Care ---
Author Name Unknown Organization [facility] [address] [place] [address] Phone [phone] Care Team Providers Care Crystal Flat Grinder Name Role Phone Ajit Parekh DO Primary Care Provider Encounter Details Date Type Department Care Team (Late st Contact Info) Description 03/08/2024 Orders Only Hematology/Oncology, [facility] [address] [facility] [address] Tnoo Ramos MD 200 [place] [address] Allergies Active Allergy Reactions Criticality Noted Date Comments Fluvastatin 05/16/2018 Other Reaction(s): Joint Pain Simvastatin 05/16/2018 Other Reaction(s): Joint Pain documented as of this encounter (statuses as of 03/08/2024) Medications Medication Sig Dispensed Refills Start Date End Date Status THIAMINE 25 MG OR TABS Take 1 Tablet by mouth in the morning. 06/06/2023 Active Sildenafil Citrate 50 MG Oral Tablet Take 1 Tablet by mouth as needed. 06/03/2023 Active Isosorbide Mononitrate ER 30 MG Oral Tablet Extended Release 24 Hour (Imdur) Take 1 Tablet by mouth in the morning. 06/03/2023 Active Latanoprost 0.005 % Ophthalmic Solution (Xalatan) Instill 1 Drop into both eyes at bedtime. 03/30/2023 Active Fluticasone Propionate 50 MCG/ACT Nasal Suspension (Flonase) Administer 1 [place] into nostril in the morning. 06/06/2023 Active Folic Acid 400 MCG Oral Tablet Take 1 Tablet by mouth in the morning. 06/06/2023 Active Clopidogrel Bisulfate 75 MG Oral Tablet (pLAVix) Take 1 Tablet by mouth in the morning. 05/14/2023 Active Venlafaxine HCl ER 150 MG Oral Capsule Extended Release 24 Hour (Effexor XR) Take 1 Capsule by mouth in the morning. 06/03/2023 Active Bisacodyl 10 MG Rectal Suppository (Dulcolax)Indicati ons:Slow transit constipation Administer 1 Suppository into the rectum daily as needed for Constipation. Do not use for more than 1 week. 20 Suppository 1 06/12/2023 Active Rosuvastatin Calcium 20 MG Oral Tablet (Crestor) 1 Tablet in the morning. 05/14/2023 Active Vitamin B1 100 MG Oral Tablet Take 1 Tablet by mouth in the morning. In the morning.. 06/06/2023 Active Multiple Vitamins Oral Tablet Take by mouth. Active Vitamin B-12 1000 MCG Sublingual Tablet SublingualIndicati ons:Macrocytic anemia,Vitamin B12 deficiency Place 1 Tablet under the tongue in the morning. 90 Tablet 3 07/05/2023 Active Pantoprazole Sodium 40 MG Oral Tablet Delayed Release (Protonix)Indicati ons:Gastroesophage al reflux disease without esophagitis Take 1 Tablet by mouth in the morning. 90 Tablet 1 09/05/2023 Active Prochlorperazine Maleate 10 MG Oral Tablet (Compazine)Indicat ions:MDS (myelodysplastic syndrome) (HCC) Take 1 Tablet by mouth every 6 hours as needed for Nausea. 30 Tablet 3 12/16/2023 Active Ondansetron HCl 8 MG Oral Tablet (Zofran)Indication s:MDS (myelodysplastic syndrome) (HCC) Take 1 Tablet by mouth every 8 hours as needed for Nausea. 30 Tablet 2 12/16/2023 Active Additional Information Patient not taking.Reported on 02/27/2024 Acyclovir 400 MG Oral Tablet (Zovirax)Indicatio ns:MDS (myelodysplastic syndrome) (HCC) Take 1 Tablet by mouth in the morning and 1 Tablet before bedtime. 180 Tablet 1 12/16/2023 Active Posaconazole 100 MG Oral Tablet Delayed Release (Noxafil)Indicatio ns:MDS (myelodysplastic syndrome) (HCC) Take 300 mg by mouth in the morning. 180 Tablet 12/16/2023 Active Lidocaine-Prilocai ne 2.5-2.5 % External Cream (Emla)Indications: MDS (myelodysplastic syndrome) (HCC) APPLY TO SKIN OVER MEDIPORT & COVER 1HR PRIOR TO ACCESSING. 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 Neutropenia 02/02/2024 Encounter for antineoplastic chemotherapy 2023 Symptomatic anemia 09/05/2023 MDS (myelodysplastic syndrome) 08/30/2023 Atrial fibrillation 06/18/2023 Obesity, Class I, BMI 30.0-34.9 (see actual BMI) 06/16/2023 Gastroesophageal reflux disease without esophagi tis 06/16/2023 Organic erectile dysfunction 06/16/2023 Depression with anxiety 06/16/2023 Coronary artery disease invo lving [place] coronary artery of [place] heart without angina pectoris 06/16/2023 Status post placement of implantable loop record er 06/16/2023 documented as of this encounter (statuses as of 03/08/2024) Social History Tobacco Use Types Packs/Day Years Used Date Smoking Tobacco: Every Day Cigarettes 0.5 19.8 Started: 2004 Smokeless Tobacco: Never Comments:Pt currently smokes 1/4 ppd Alcohol Use Standard Drinks/Week Comments Yes 5 (1 standard drink = 0.6 oz pur e alcohol) 2 X per week Utilities Answer Date Recorded Do you have trouble paying y our heating, water, or electric bill? (Adult - for ages 18 years and over) Not on file 10/28/2023 Is your family able to pay t he heat, water, or electric bill? (Household - for ages 0-17 years) Not on file 10/28/2023 Does your family have access to good internet? (Household - for ages 0-17 years) Not on file 10/28/2023 Social Connections Answer Date Recorded How often do you feel lonely or isolated from those around you? (Adult - for ages 18 years and over) Not on file 10/28/2023 Sex and Gender Information Value Date Recorded Sex Assigned at Not on file Gender Identity Not on file Sexual Orientation Not on file Job Start Date Occupation Industry Not on file Not on file Not on file documented as of this encounter Plan of Treatment Upcoming Encounters Date Type Department Care Team (Late st Contact Info) Description 03/11/2024 8:10 AM EDT Laboratory Laboratory [facility] [place] [address] [place] [phone] Zo[place], Lab Scenery [address] [place] [address] 03/11/2024 9:15 AM EDT Nurse Only Hematology/Oncology [facility] [place] [address] [place] [phone] Zoie, Nurse Hem Onc Scenery [address] [place] [address] 03/11/2024 10:30 AM EDT Cardiac Studies Cardiology, [facility] [address] [place] [address] [facility] 132 [place] [address] 03/15/2024 8:30 AM EST Laboratory Laboratory [facility] [place] [address] [place] [phone] Zoie, Lab Scenery [address] [place] [address] 03/15/2024 9:00 AM EST Office Visit Hematology/Oncology [facility] [place] [address] [place] [phone] Rachel Albarado CRNP 400 [facility] [place] [address] 03/15/2024 9:30 AM EST Hem/Onc Treatment Hematology/Oncology Treatment, [place] [address] [place] [phone] Zoie, Chair 4 Hem Onc Scenery [address] [place] [address] 03/16/2024 9:00 AM EST Hem/Onc Treatment Hematology/Oncology Treatment, [place] 200 [place] [address] Zoie, Chair 6 Hem Onc Scenery [address] [place] [address] 03/17/2024 9:00 AM EST Hem/Onc Treatment Hematology/Oncology Treatment, [place] 200 [place] [address] Zoie, Chair 10 Hem Onc Scenery [address] [place] [address] 03/18/2024 8:00 AM EST Laboratory Laboratory Scenery [facility] [address] [place], [place] [address] Zoie, Lab Scenery [address] [place] [address] 03/18/2024 9:00 AM EST Hem/Onc Treatment Hematology/Oncology Treatment, [place] 200 [place] [address] Zoie, Chair 10 Hem Onc Scenery [address] [place] [address] 03/19/2024 9:00 AM EST Hem/Onc Treatment Hematology/Oncology Treatment, [place] 200 [place] [address] Zoie, Chair 6 Hem Onc Scenery [address] [place] [address] 03/22/2024 8:10 AM EST Laboratory Laboratory Scenery [facility] [address] [place] [address] Zoie, Lab Scenery [address] [place] [address] 03/22/2024 9:00 AM EST Immunization/Injecti on Hematology/Oncology Treatment, [place] 200 [place] [phone] Zoie, Chair 9 Hem Onc [facility] 200 [facility] [place] [address] 04/13/2024 8:45 AM EST Office Visit Hematology/Oncology [facility] 200 [facility] [place] [phone] Saurabh Pisano MD 200 [facility] [place] [address] 06/08/2024 9:00 AM EST Office [facility], [facility] [place] [address] Alyse Rivera CRNP 400 [place] [address] 06/17/2024 1:00 PM EST Office Visit Family Practice [facility] [place] [address] Ajit Parekh DO 132 [facility] [place] [address] Health Maintenance Due Date Last Done Comments DISCUSS TOBACCO CESSATION (REFER TO SMARTSET #9281) 1950 Depression Monitoring 1962 Hepatitis C Screening 1968 DTap/Tdap Vaccines (1 - Tdap) 1969 Cologuard 1995 Fecal Occult Blood Test 1995 Sigmoidoscopy 1995 Adult Wellness Visit 2016 Pneumococcal Vaccine: 65+ Years (3 of 3 - PPSV23 or PCV20) 11/08/2016 11/09/2015, 04/19/2011, 03/14/2006, Additional history exists COVID-19 Vaccine ( season) 2024 04/17/2021, 07/19/2020, 06/28/2020 Influenza Vaccine (FLU shot) (#1) 2024 02/09/2018, 02/07/2017, 01/21/2014, Additional history exists Colonoscopy 06/22/2030 06/22/2020 Colorectal Cancer Screening 06/22/2030 Zoster Vaccines Completed 08/14/2021, 05/14, 07/18/2016 AAA Screening Completed 08/22/2023 HPV (Gardasil) Vaccine Aged Out No lo nger eligible based on patient's age to complete this topic Hepatitis B Vaccine Aged Out No longe r eligible based on patient's age to complete this topic MENINGOCOCCAL (MENACTRA/MENVEO) Aged Out No longer eligible based on patient's age to complete this topic documented as of this encounter Medical Devices Implanted Type Area Tenant Selector Device Identifier Shelf Expiration Date Model / Serial / Lot Port Implant W8f Poly Cath - [id number] Implanted:Qty : 1 on 02/11/2024 by Kei Aranda MD at [facility] Right: Chest CR BARD : PERIPHERAL VASCULAR [id number] 10/09/2024 [id number] / / [id number] documented as of this encounter Care Teams Crystal Flat Grinder Relationship Specialty Start Date End Date Ajit Parekh DO [address] [place] [address] PCP - General Family Medicine 06/12/23 documented as of this encounter
--- OUTSIDE RECORDS SUMMARY | 2024-03-11 12:04 | External Medical Summary | Summary of Care ---
Author Name Unknown Organization [facility] Address [address] [facility] [address] Phone [phone] Care Team Providers Care Spanish Teacher Name Role Phone Ajit Parekh DO Primary Care Provider Encounter Details Date Type Department Care Team (Late st Contact Info) Description 03/03/2024 Result Scan Unspecified Department Renetta Mosley DO [address] [facility] [place] [address] <No scans attached> Allergies Active Allergy Reactions Criticality Noted Date [...] 50 MCG/ACT Nasal Suspension (Flonase) Administer 1 [place] into nostril in the morning. 06/06/2023 Active [...] anxiety 06/16/2023 Coronary artery disease invo lving [place] coronary artery of [place] heart without angina pectoris 06/16/2023 Status post [...] Description 03/11/2024 8:10 AM EDT Laboratory Laboratory [facility] [place] [address] [place] [phone] [place], Lab Scenery [address] [place], [place] [address] 03/11/2024 9:15 AM EDT Nurse Only Hematology/Oncology [facility] [place] [address] [place] [phone] Zoie, Nurse Hem Onc Scenery [address] [place] [address] 03/11/2024 10:30 AM EDT Cardiac Studies Cardiology, [facility] 132 [place] [address] [facility] 132 [facility] [address] 03/15/2024 8:30 AM EST Laboratory Laboratory [facility] [place] [address] [place] [phone] Zoie, Lab Scenery [address] [place] [address] 03/15/2024 9:00 AM EST Office Visit Hematology/Oncology [facility] [place] [address] [place] [phone] Rachel Albarado CRNP 400 [facility] [place] [address] 03/15/2024 9:30 AM EST Hem/Onc Treatment Hematology/Oncology Treatment, [place] [address] [place], [place] [phone] Zoie, Chair 4 Hem Onc Scenery [address] [place] [address] 03/16/2024 9:00 AM EST Hem/Onc Treatment Hematology/Oncology Treatment, [place] 200 [place] [address] Zoie, Chair 6 Hem Onc Scenery [address] [place] [address] 03/17/2024 9:00 AM EST Hem/Onc Treatment Hematology/Oncology Treatment, [place] 200 [place] [address] Park, Chair 10 Hem Onc Scenery [address] [place] [address] 03/18/2024 8:00 AM EST Laboratory Laboratory Scenery [facility] [address] [place] [address] Zoie, Lab Scenery [address] [place] [address] 03/18/2024 9:00 AM EST Hem/Onc Treatment Hematology/Oncology Treatment, [place] 200 [place] [address] Zoie, Chair 10 Hem Onc Scenery [address] [place] [address] 03/19/2024 9:00 AM EST Hem/Onc Treatment Hematology/Oncology Treatment, [place] 200 [place] [address] Zoie, Chair 6 Hem Onc Scenery [address] [place] [address] 03/22/2024 8:10 AM EST Laboratory Laboratory Scenery [place] [address] [place] [address] Zoie, Lab Scenery [address] [place] [address] 03/22/2024 9:00 AM EST Immunization/Injecti on Hematology/Oncology Treatment, [place] 200 [place] [address] Zoie, Chair 9 Hem Onc Scenery [address] [place] [address] 04/13/2024 8:45 AM EST Office Visit Hematology/Oncology [facility] 200 [facility] [place] [phone] Saurabh Pisano MD 200 [facility] [place] [address] 06/08/2024 9:00 AM EST Office Visit Cardiology, [facility] [place] [address] Alyse Rivera CRNP [address] [place] [address] 06/17/2024 1:00 PM EST Office Visit Family Practice [facility] 132 [facility] [place] [address] Ajit Parekh DO 132 [facility] [place] [address] Health Maintenance Due Date Last Done Comments DISCUSS TOBACCO CESSATION (REFER TO SMARTSET #1184) 1950 Depression Monitoring 1962 Hepatitis C Screening 1968 DTap/Tdap Vaccines (1 - Tdap) 1969 Cologuard 1995 Fecal Occult Blood Test 1995 Sigmoidoscopy 1995 Adult Wellness Visit 2016 Pneumococcal Vaccine: 65+ Years (3 of 3 - PPSV23 or PCV20) 11/08/2016 11/09/2015, 04/19/2011, 03/14/2006, Additional history exists COVID-19 Vaccine ( - season) 2024 04/17/2021, 07/19/2020, 06/28/2020 Influenza Vaccine [...] this encounter Medical Devices Implanted Type Area Apparel Designer Device Identifier Shelf Expiration Date Model / Serial / Lot Port Implant W8f Poly Cath - [id number] Implanted:Qty : 1 on 02/11/2024 by Kei Aranda MD at [facility] Right: Chest CR BARD : PERIPHERAL VASCULAR [id number] 10/09/2024 [id number] / / [id number] documented as of this encounter Procedures Procedure Name Priority Date/Time Associated Diagnosis Comments RADIOLOGY SCANNED RESULT 03/03/2024 documented in this encounter Results * RADIOLOGY SCANNED RESULT (03/03/2024) 03/03/2024 Renetta Mosley DO DIAGNOSTIC RADI OLOGY SERVICES documented in this encounter Care Teams Spanish Teacher Relationship Specialty Start Date End Date Ajit Parekh DO 132 [facility] [place] [address] PCP - General Family Medicine 06/12/23 documented as of this encounter
--- OUTSIDE RECORDS SUMMARY | 2024-03-11 12:04 | External Medical Summary ---
Author Name Unknown Address Unknown Organization K09:[facility] [place] [address] Laboratory Report Ordering Provider Test Date Status NÉSTOR NAIR 03/11/2024 08:08:53 Final Observation Date Value Abnormality Reference (Units ) Status WBC, Total 03/11/2024 08:08:53 3.27 Below low normal 4. 00-10.80 (K/uL) Final RBC 03/11/2024 08:08:53 1.84 4.50-5.25 (M/uL) Final Hemoglobin 03/11/2024 08:08:53 7.4 Below low normal 14 .0-16.8 (g/dL) Final HCT 03/11/2024 08:08:53 21.9 Below low normal 40. 0-48.4 (%) Final MCV 03/11/2024 08:08:53 119.0 82.0-99.5 (fL) Final MCH 03/11/2024 08:08:53 40.2 27.0-34.0 (pg) Final MCHC 03/11/2024 08:08:53 33.8 32.0-36.0 (g/dL) Final RDW 03/11/2024 08:08:53 16.9 11.5-15.5 (%) Final Platelets 03/11/2024 08:08:53 109 Below low normal 140 -400 (K/uL) Final Results rechecked.
null MPV 03/11/2024 08:08:53 11.1 6.6-11.1 ( fL) Final Performing Location [facility] [place] [address]
--- OUTSIDE RECORDS SUMMARY | 2024-03-11 12:04 | External Medical Summary | Summary of Care ---
Author Name Unknown Organization [facility] [address] [place] [address] Phone [phone] Care Team Providers Care Hr Shared Services Consultant Name Role Phone Ajit Parekh DO Primary Care Provider Encounter Details Date Type Department Care Team (Late st Contact Info) Description 03/08/2024 Orders Only Hematology/Oncology, [facility] 400 [facility] [place] [address] Tono Ramos MD 200 [place] [address] MDS (myelodysplastic syndrome) (HCC)* Allergies Active Allergy Reactions Criticality Noted Date [...] 50 MCG/ACT Nasal Suspension (Flonase) Administer 1 [place] into nostril in the morning. 06/06/2023 Active [...] anxiety 06/16/2023 Coronary artery disease invo lving [place] coronary artery of [place] heart without angina pectoris 06/16/2023 Status post [...] Description 03/11/2024 8:10 AM EDT Laboratory Laboratory [facility] [place] [address] [place] [phone] [place], Lab Scenery [address] [place] [address] 03/11/2024 9:15 AM EDT Nurse Only Hematology/Oncology [facility] [place] [address] [place] [phone] [place], Nurse Hem Onc [facility] [address] [place] [address] 03/11/2024 10:30 AM EDT Cardiac Studies Cardiology, [facility] 132 [place] [address] [place] 132 [place] [address] 03/15/2024 8:30 AM EST Laboratory Laboratory [facility] [place] [address] [place] [phone] [place], Lab [facility] [address] [place] [address] 03/15/2024 9:00 AM EST Office Visit Hematology/Oncology [facility] [place] [address] [place] [address] Rachel Albarado CRNP [address] [place] [address] [place] [address] 03/15/2024 9:30 AM EST Hem/Onc Treatment Hematology/Oncology Treatment, [place] [address] [place] [phone] Zoie, Chair 4 Hem Onc Scenery [address] [place] [address] 03/16/2024 9:00 AM EST Hem/Onc Treatment Hematology/Oncology Treatment, [place] 200 [facility] [place] [address] Zoie, Chair 6 Hem Onc Scenery [address] [place] [address] 03/17/2024 9:00 AM EST Hem/Onc Treatment Hematology/Oncology Treatment, [place] 200 [facility] [place] [address] Zoie, Chair 10 Hem Onc Scenery [address] [place] [address] 03/18/2024 8:00 AM EST Laboratory Laboratory [facility] [address] [place] [address] Zoie, Lab Scenery [address] [place] [address] 03/18/2024 9:00 AM EST Hem/Onc Treatment Hematology/Oncology Treatment, [place] 200 [facility] [place] [address] Zoie, Chair 10 Hem Onc Scenery [address] [place] [address] 03/19/2024 9:00 AM EST Hem/Onc Treatment Hematology/Oncology Treatment, [place] 200 [facility] [place] [address] Zoie, Chair 6 Hem Onc Scenery [address] [place] [address] 03/22/2024 8:10 AM EST Laboratory Laboratory Scenery [facility] [address] [place] [address] Zoie, Lab Scenery [address] [place] [address] 03/22/2024 9:00 AM EST Immunization/Injecti on Hematology/Oncology Treatment, [place] 200 [place] [address] Zoie, Chair 9 Hem Onc [facility] 200 [facility] [place] [address] 04/13/2024 8:45 AM EST Office Visit Hematology/Oncology [facility] [place] [address] [place] [phone] Saurabh Pisano MD [address] [place] [address] 06/08/2024 9:00 AM EST Office Visit Cardiology, [facility] [address] [place] [address] Alyse Rivera CRNP 400 [facility] [address] 06/17/2024 1:00 PM EST Office Visit Family Practice [facility] [address] [place] [address] Ajit Parekh DO [address] [place] [address] Health Maintenance Due Date Last Done Comments DISCUSS TOBACCO CESSATION (REFER TO SMARTSET #8197) 1950 Depression Monitoring 1962 Hepatitis C Screening [...] this encounter Medical Devices Implanted Type Area Sweatband Separator Device Identifier Shelf Expiration Date Model / Serial / Lot Port Implant W8f Poly Cath - [id number] Implanted:Qty : 1 on 02/11/2024 by Kei Aranda MD at [facility] Right: Chest CR BARD : PERIPHERAL VASCULAR [id number] 10/09/2024 [id number] / / [id number] documented as of this encounter Visit Diagnoses Diagnosis MDS (myelodysplastic syndrome) (HCC)- Primary Myelodysplastic syndrome, unspecified documented in this encounter Care Teams Hr Shared Services Consultant Relationship Specialty Start Date End Date Ajit Parekh DO 132 [place] [address] PCP - General Family Medicine 06/12/23 documented as of this encounter
--- OUTSIDE RECORDS SUMMARY | 2024-03-11 12:04 | External Medical Summary | Summary of Care ---
Author Name Unknown Organization [facility] Address [address] [facility] [address] Phone [phone] Care Team Providers Care Mortgage Professional Name Role Phone Ajit Parekh DO Primary Care Provider Reason for Visit * Reason Comments Outpatient Testing Encounter Details Date Type Department Care Team (Late st Contact Info) Description 03/11/2024 8:10 AM EDT Laboratory Laboratory [facility] [address] [place] [phone] [facility] Lab [facility] [address] [place] [address] Arrived Allergies Active Allergy Reactions Criticality Noted Date Comments Fluvastatin 05/16/2018 Other Reaction(s): Joint Pain Simvastatin 05/16/2018 Other Reaction(s): Joint Pain documented as of this encounter (statuses as of 03/11/2024) Medications Medication Sig Dispensed Refills Start Date [...] 50 MCG/ACT Nasal Suspension (Flonase) Administer 1 [place] into nostril in the morning. 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 Depression with anxiety 06/16/2023 Coronary artery disease invo lving ute coronary artery of ute heart without angina pectoris 06/16/2023 Status post placement of implantable loop record er 06/16/2023 documented as of this encounter (statuses as of 03/11/2024) Social History Tobacco Use Types Packs/Day Years [...] Team (Late st Contact Info) Description 03/11/2024 9:15 AM EDT Nurse Only Hematology/Oncology [facility] [place] [address] [place] [phone] Zoie, Nurse Hem Onc [facility] [address] [place] [address] Arrived 03/11/2024 10:30 AM EDT Cardiac Studies Cardiology, [facility] [place] [address] [facility] [place] [address] 03/15/2024 8:30 AM EST Laboratory Laboratory [facility] [place] [address] [place] [phone] Zoie, Lab [facility] [address] [place] [place] [address] 03/15/2024 9:00 AM EST Office Visit Hematology/Oncology [facility] [place] [address] [place] [address] [phone] Rachel Albarado, JODEE [address] [place] [address] 03/15/2024 9:30 AM EST Hem/Onc Treatment Hematology/Oncology Treatment, [address], [place] [address] Zoie, Chair 4 Hem Onc [facility] [address] [place] [address] [address] 03/16/2024 9:00 AM EST Hem/Onc Treatment [address]ematology[address] [address] Zoie, Chair 6 Hem Onc Scenery [address] [place] [address] [address] 03/17/2024 9:00 AM EST Hem/Onc Treatment Hematology/Oncology Treatment, [place] 200 [place] [address] Zoie, Chair 10 Hem Onc Scenery [address] [place] [address] 03/18/2024 8:00 AM EST Laboratory Laboratory Scenery [facility] [address] [place], [place] [address] Zoie, Lab Scenery [address] [place] [address] 03/18/2024 9:00 AM EST Hem/Onc Treatment Hematology/Oncology Treatment, [place] 200 [facility], [place] [address] Zoie, Chair 10 Hem Onc Scenery [address] [place] [address] 03/19/2024 9:00 AM EST Hem/Onc Treatment Hematology/Oncology Treatment, [place] 200 [place] [address] Zoie, Chair 6 Hem Onc Scenery [address] [place] [address] 03/22/2024 8:10 AM EST Laboratory Laboratory [facility] [place] [address] [place] [address] Zoie, Lab Scenery [address] [place] [address] 03/22/2024 9:00 AM EST Immunization/Injecti on Hematology/Oncology Treatment, [place] 200 [place] [address] Zoie, Chair 9 Hem Onc Scenery [address] [place] [address] 04/13/2024 8:45 AM EST Office Visit Hematology/Oncology [facility] [place] [address] [place] [phone] Saurabh Pisano MD [address] [place] [address] 06/08/2024 9:00 AM EST Office Visit Cardiology, [facility] [address] Alyse Rivera CRNP 400 [place] [address] 06/17/2024 1:00 PM EST Office Visit Family Practice [facility] 132 [facility] [place] [address] Ajit Parekh DO 132 [facility] [place] [address] Health Maintenance Due Date Last Done Comments DISCUSS TOBACCO CESSATION (REFER TO SMARTSET #6817) 1950 Depression Monitoring 1962 Hepatitis C Screening [...] this encounter Medical Devices Implanted Type Area Glue Machine Operator Device Identifier Shelf Expiration Date Model / Serial / Lot Port Implant W8f Poly Cath - [id number] Implanted:Qty : 1 on 02/11/2024 by Kei rAanda MD at [facility] Right: Chest CR BARD : PERIPHERAL VASCULAR [id number] 10/09/2024 [id number] / / [id number] documented as of this encounter Care Teams Mortgage Professional Relationship Specialty Start Date End Date Ajit Parekh DO [address] [place] [address] PCP - General Family Medicine 06/12/23 documented as of this encounter
--- OUTSIDE RECORDS SUMMARY | 2024-03-11 12:04 | External Medical Summary | Summary of Care ---
Author Name Unknown Organization [facility] Address [address] [facility] [address] Phone [phone] Care Team Providers Care Construction Project Engineer Name Role Phone Ajit Parekh DO Primary Care Provider Reason for Visit * Reason Comments Outpatient Testing Encounter Details Date Type Department Care Team (Late st Contact Info) Description 03/08/2024 8:00 AM EDT Laboratory Laboratory [facility] [address] [place] [phone] [place], Lab Scenery [address] [place] [address] MDS (myelodysplastic syndrome) (HCC) Allergies Active Allergy Reactions Criticality Noted Date [...] 50 MCG/ACT Nasal Suspension (Flonase) Administer 1 [place] into nostril in the morning. 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 Neutropenia 02/02/2024 Encounter for antineoplastic chemotherapy 2023 Symptomatic anemia 09/05/2023 MDS (myelodysplastic syndrome) 08/30/2023 Atrial fibrillation 06/18/2023 Obesity, Class I, BMI 30.0-34.9 (see actual BMI) 06/16/2023 Gastroesophageal reflux disease without esophagi tis 06/16/2023 Organic erectile dysfunction 06/16/2023 Depression with anxiety 06/16/2023 Coronary artery disease invo lving [place] coronary artery of [place] heart without angina pectoris 06/16/2023 Status post [...] Team (Late st Contact Info) Description 03/08/2024 9:00 AM EDT Immunization/Injecti on Hematology/Oncology Treatment, [place] [address] [place], [place] [phone] Zoie, Chair 9 Hem Onc Scenery [address] [place] [address] Arrived 03/11/2024 8:10 AM EDT Laboratory Laboratory [facility] [place] [address] [place] [address] Zoie, Lab Scenery [address] [facility] [place] [address] 03/11/2024 9:15 AM EDT Nurse Only Hematology/Oncology [facility] Zo[place] [address] [place] [phone] Zoie, Nurse Hem Onc Scenery [address] [place] [address] 03/11/2024 10:30 AM EDT Cardiac Studies Cardiology, [facility] 132 [place] [address] [place], Pacer [facility] 132 [place] [address] 03/15/2024 8:30 AM EST Laboratory Laboratory [facility] Zo[place] [address] [place] [address] Zoie, Lab Scenery [address] [facility] [place] [address] 03/15/2024 9:00 AM EST Office Visit Hematology/Oncology [facility] [place] [address] [place] [phone] Rachel Albarado CRNP [address] [place] [address] [place] [address] 03/15/2024 9:30 AM EST Hem/Onc Treatment Hematology/Oncology Treatment, [place] 200 [facility] [place] [address] Zoie, Chair 4 Hem Onc Scenery [address] [place] [address] 03/16/2024 9:00 AM EST Hem/Onc Treatment Hematology/Oncology Treatment, [place] 200 [facility] [place] [address] Zoie, Chair 6 Hem Onc Scenery [address] [place] [address] 03/17/2024 9:00 AM EST Hem/Onc Treatment Hematology/Oncology Treatment, [place] 200 [facility] [place] [address] Zoie, Chair 10 Hem Onc Scenery [address] [place] [address] 03/18/2024 8:00 AM EST Laboratory [facility] [address] [place] [address] Zoie, Lab Scenery [address] [place] [address] 03/18/2024 9:00 AM EST Hem/Onc Treatment Hematology/Oncology Treatment, [place] 200 [facility] [place] [address] Zoie, Chair 10 Hem Onc Scenery [address] [place] [address] 03/19/2024 9:00 AM EST Hem/Onc Treatment Hematology/Oncology Treatment, [place] 200 [facility] [place] [address] Zoie, Chair 6 Hem Onc Scenery [address] [place] [address] 03/22/2024 8:10 AM EST Laboratory Laboratory Scenery [facility] [address] [place] [phone] Zoie Lab Scenery [address] [place], [place] [address] 03/22/2024 9:00 AM EST Immunization/Injecti on Hematology/Oncology Treatment, [place] [address] [place], [place] [phone] Zoie, Chair 9 Hem Onc [place] 200 [facility] [place], [place] [address] 04/13/2024 8:45 AM EST Office Visit Hematology/Oncology [facility] [place] [address] [place], [place] [phone] Saurabh Pisano MD [address] [place], [place] [address] 06/08/2024 9:00 AM EST Office Visit Cardiology, [facility] 132 [facility] [place] [address] Alyse Rivera CRNP 400 [facility] [place] [phone] 06/17/2024 1:00 PM EST Office Visit Family Practice [facility] 132 [facility] [place] [address] Ajit Parekh DO 132 [facility] [place] [address] Pending Results Name Type Priority Associated Diagnoses Date /Time CBC WITH WBC DIFFERENTIAL Lab STAT MDS (myelodysplastic syndrome) ([facility]) 03/08/2024 8:13 AM EDT COMPREHENSIVE METABOLIC PANEL Lab STAT MDS (myelodysplastic syndrome) ([facility]) 03/08/2024 8:13 AM EDT CBC Lab STAT MDS (myelodysplastic syndrome) ([facility]) 03/08/2024 8:13 AM EDT DIFFERENTIAL, AUTOMATED Lab STAT MDS (myelodysplastic syndrome) ([facility]) 03/08/2024 8:13 AM EDT Scheduled Orders Name Type Priority Associated Diagnoses Orde r Schedule CBC Lab STAT MDS (myelodysplastic syndrome) (HCC) Ordered: 03/08/2024 DIFFERENTIAL, AUTOMATED Lab STAT MDS (myelodysplastic syndrome) (HCC) Ordered: 03/08/2024 Health Maintenance Due Date Last Done Comments DISCUSS TOBACCO CESSATION (REFER TO SMARTSET #7000) 1950 Depression Monitoring 1962 Hepatitis C Screening [...] this encounter Medical Devices Implanted Type Area Warp Hand Device Identifier Shelf Expiration Date Model / Serial / Lot Port Implant W8f Poly Cath - [id number] Implanted:Qty : 1 on 02/11/2024 by Kei Aranda MD at OR [facility] Right: Chest CR BARD : PERIPHERAL VASCULAR [id number] 10/09/2024 [id number] / / [id number] documented as of this encounter Visit Diagnoses Diagnosis MDS (myelodysplastic syndrome) (HCC) Myelodysplastic syndrome, unspecified documented in this encounter Care Teams Construction Project Engineer Relationship Specialty Start Date End Date Ajit Parekh DO 132 [place] [address] PCP - General Family Medicine 06/12/23 documented as of this encounter
--- OUTSIDE RECORDS SUMMARY | 2024-03-11 12:04 | External Medical Summary | Summary of Care ---
Author Name Unknown Organization [facility] Address [address] [facility] [place] [address] Phone [phone] Care Team Providers Care Office Assistant Receptionist Name Role Phone Ajit Parekh DO Primary Care Provider Reason for Visit * Reason Comments Medication Administration Aranesp Infusion IV hydration * Episode Based Medications (Routine) - Authorized Specialty Diagnoses / Procedures Referred By Alexander t Referred To Contact Diagnoses Symptomatic anemia MDS (myelodysplastic syndrome) (HCC) Refractory cytopenia with multilineage dysplasia (HCC) Procedures [place] DARBEPOETIN GILBERTO, NON-ESRD Rachel [place] CRNP [facility] [place] [address] Anc Hem/Onc [address] [place] [address] Referral ID Status Reason Start Date Expiration Date V isits Requested Visits Authorized [id number] Authorized 03/02/2024 05/25/2024 999 999 Encounter Details Date Type Department Care Team (Latest Contact Info) Description 03/08/2024 9:00 AM EDT Immunization/I njection Hematology/[address], [address] [address] Zoie, Chair 9 Hem Onc [address] [address] Symptomatic anemia*; MDS (myelodysplastic syndrome) (HCC); Refractory cytopenia with multilineage dysplasia (HCC); Dehydration Allergies Active Allergy Reactions Criticality Noted Date [...] 50 MCG/ACT Nasal Suspension (Flonase) Administer 1 [place] into nostril in the morning. 06/06/2023 Active [...] anxiety 06/16/2023 Coronary artery disease invo lving [place] coronary artery of [place] heart without angina pectoris 06/16/2023 Status post placement of implantable loop record er 06/16/2023 documented as of this encounter (statuses as of 03/08/2024) Social History Tobacco Use Types Packs/Day Years Used Date Smoking Tobacco: Every Day Cigarettes 0.5 19.8 Started: 2004 Smokeless Tobacco: Never Tobacco Cessation:Ready to Q uit: Not Asked; Counseling Given: Not Answered Comments:Pt currently smokes 1/4 ppd Alcohol Use [...] on file documented as of this encounter Last Filed Vital Signs Vital Sign Reading Time Taken Comments Blood Pressure 139/72 03/08/2024 11:46 AM EDT Pulse 101 03/08/2024 11:46 AM EDT Temperature 36.7 C (98 F) 03/08/2024 8:50 AM EDT Respiratory Rate 16 03/08/2024 11:46 AM EDT Oxygen Saturation 97% 03/08/2024 11:46 AM EDT Inhaled Oxygen Concentration - - Weight - - Height - - Body Mass Index - - documented in this encounter Nursing Notes * Janki Reyes RN - 03/08/2024 3:59 PM EDT Pt completed treatment without issues. Pt reported feeling slightly better after hydration. Pt again stated his "head feels weird." Neuro checks completed; pt denies [place], vision changes, trouble thinking/speaking, weakness. Reviewed signs/symptoms warranting emergency evaluation; pt verbalized understanding. VAD flushed with 10 ml NSS and Heparin 5 ml (100 units/ml). Underwood needle removed intact. VS rechecked, WNL. Pt ambulated normally without assistance upon discharge. Pt has follow up with cardiology this 03/11/24. * Janki Reyes RN - 03/08/2024 9:40 AM EDT Pt presented to clinic for aranesp injection c/o extreme dizziness. Pt ambulated to chair feeling very unsteady and lightheaded. Pt is s/p pacemaker placement on 03/03/24. Pt reported feeling flu-like symptoms (generalized bodyaches, chills; did not check temperature). Labs and VS reviewed with ; pt to receive NSS 1L over 2 hours today. If dizziness persists post hydration, or symptoms be come worse, pt was advised to go to [facility] ED. VAD accessed; NSS infusing. Safety and Risk for Injury Patient will remain free from injury. Ensure appropriate safety devices are available. Provide and maintain safe environment. Patient instructed on use of heat and massage functions where applicable. Patient shown how to operate the heat function of the chair and to alert nursing staff if the chair feels too warm. Patient instructed on the risk of potential torres while using the heat function. * Shruti Butterfield LPN - 03/08/2024 9:38 AM EDT Pt arrived for Aranesp injection. HGB 8.6. Upon standing up and entering infusion room, patient wasvery unsteady and complains of dizziness. Pt has good strength in extremities. BP WNL HR WNL..Afebrile. Labs WNL. RN went to speak to MD. VACA to order NSS over 2 hours. RN accessed port without issues. Positive blood return. Pt resting quietly at this time. documented in this encounter Plan of Treatment Upcoming Encounters Date Type Department Care Team (Late st Contact Info) Description 03/11/2024 8:10 AM EDT Laboratory Laboratory [place] [facility] [address] [place] [address] [place], Lab Scenery [address] [facility] [place], [place] [address] 03/11/2024 9:15 AM EDT Nurse Only Hematology/[facility]cology [facility] [place] [address] [place] [address] [place], Nurse Hem Onc Scenery [address] [place] [address] 03/11/2024 10:30 AM EDT Cardiac Studies Cardiology, [facility] 132 [facility] [address] [facility] 132 [facility] [place] [address] 03/15/2024 8:30 AM EST Laboratory Laboratory [facility] Zoie [place] [address] [place] [address] Zoie, Lab Scenery [address] [facility] [place], [place] [address] 03/15/2024 9:00 AM EST Office Visit Hematology/Oncology [facility] Zoie [place] [address] [place] [address] Rachel [place], DEPOSITION REPORTER 400 [facility] [address] 03/15/2024 9:30 AM EST Hem/Onc Treatment Hematology/Oncology Treatment, [place] 200 [facility], [place] [address] Zoie, Chair 4 Hem Onc Scenery [address] [place] [address] 03/16/2024 9:00 AM EST Hem/Onc Treatment Hematology/Oncology Treatment, [place] 200 [facility], [place] [address] Zoie, Chair 6 Hem Onc Scenery [address] [place] [address] 03/17/2024 9:00 AM EST Hem/Onc Treatment Hematology/Oncology Treatment, [place] 200 [place] [address] Zoie, Chair 10 Hem Onc Scenery [address] [place] [address] 03/18/2024 8:00 AM EST Laboratory Laboratory [facility] [address] [place] [address] Zoie, Lab Scenery [address] [place] [address] 03/18/2024 9:00 AM EST Hem/Onc Treatment Hematology/Oncology Treatment, [place] 200 [place] [address] Zoie, Chair 10 Hem Onc Scenery [address] [place] [address] 03/19/2024 9:00 AM EST Hem/Onc Treatment Hematology/Oncology Treatment, [place] 200 [place] [address] Zoie, Chair 6 Hem Onc Scenery [address] [place] [address] 03/22/2024 8:10 AM EST Laboratory Laboratory [facility] [address] [place] [address] Zoie, Lab Scenery [address] [place] [address] 03/22/2024 9:00 AM EST Immunization/Injecti on Hematology/Oncology Treatment, [place] 200 [place] [address] Zoie, Chair 9 Hem Onc Scenery [address] [place] [address] 04/13/2024 8:45 AM EST Office Visit Hematology/Oncology [facility] [address] [place] [address] Saurabh Pisano MD 200 [address] [place] [address] 06/08/2024 9:00 AM EST Office Visit Cardiology, [facility] 132 [facility] [place] [address] Alyse Rivera CRNP 400 [facility] [place] [address] 06/17/2024 1:00 PM EST Office Visit Family Practice [facility] 132 [facility] [place] [address] Ajit Parekh DO 132 [facility] [place] [address] Health Maintenance Due Date Last Done Comments DISCUSS TOBACCO CESSATION (REFER TO SMARTSET #9034) 1950 Depression Monitoring 1962 Hepatitis C Screening 1968 DTap/Tdap Vaccines (1 - Tdap) 1969 Cologuard 1995 Fecal Occult Blood Test 1995 Sigmoidoscopy 1995 Adult Wellness Visit 2016 Pneumococcal Vaccine: 65+ Years (3 of 3 - PPSV23 or PCV20) 11/08/2016 11/09/2015, 04/19/2011, 03/14/2006, Additional history exists COVID-19 Vaccine (2023- season) 2024 04/17/2021, 07/19/2020, 06/28/2020 Influenza Vaccine [...] this encounter Medical Devices Implanted Type Area Computer Recycling Worker Device Identifier Shelf Expiration Date Model / Serial / Lot Port Implant W8f Poly Cath - [id number] Implanted:Qty : 1 on 02/11/2024 by Kei Aranda MD at OR [facility] Right: Chest CR BARD : PERIPHERAL VASCULAR [id number] 10/09/2024 [id number] / / [id number] documented as of this encounter Visit Diagnoses Diagnosis Symptomatic anemia- Primary MDS (myelodysplastic syndrome) (HCC) Myelodysplastic syndrome, unspecified Refractory cytopenia with multilineage dysplasia (HCC) Low grade myelodysplastic syndrome lesions Dehydration documented in this encounter Administered Medications Active Administered Medications - up to 3 most recent administrations Medication Order MAR Action Action Date Dose Rate Site hEParin 100 UNIT/ML Lock Flush inj 500 Units 500 Units (5 mL), IV Lock, PRN Other, IV Flush, Starting on Fri03/08/24 at 0937, Until Fri03/09/24 at 0936, For 24 hours, Do not flush if lock, PICC, or central line not in place; IV infusing or unable to flush. Given 03/08/2024 11:52 AM EDT 500 Units sodium chloride 0.9 % flush central line 10 mL 10 mL, IV Push, PRN Other, IV Flush, Starting on Fri03/08/24 at 0937, Until Fri03/09/24 at 0936, For 24 hours, Do not flush if lock, PICC, or central line not in place; IV infusing or unable to flush. Given 03/08/2024 11:51 AM EDT 10 mL Inactive Administered Medications - up to 3 most recent administrations Medication Order MAR Action Action Date Dose Rate Site Darbepoetin Gilberto (Aranesp) inj 500 mcg 500 mcg, Subcutaneous, ONCE, On Fri03/08/24 at 1000, For 1 dose Given 03/08/2024 9:02 AM EDT 500 mcg Arm Right Upper NSS infusion FOR HYDRATION Intravenous, at 500 mL/hr Administer over 2 Hours, ONCE, 1 dose, On 03/08/24 at 1045 Start Infusion 03/08/2024 9:44 AM EDT 1,000 mL 500 mL/hr documented in this encounter Care Teams Office Assistant Receptionist Relationship Specialty Start Date End Date Ajit Parekh DO [address] [place] [address] PCP - General Family Medicine 06/12/23 documented as of this encounter
--- OUTSIDE RECORDS SUMMARY | 2024-03-11 12:04 | External Medical Summary ---
Author Name Unknown Address Unknown Organization K09:[facility] [place] [address] Laboratory Report Ordering Provider Test Date Status JOANIE,PALM 03/11/2024 08:08:53 Final Observation Date Value Abnormality Reference (Units ) Status Nucleated erythrocytes/100 leukocytes [Ratio] in Blood by Automated count 03/11/2024 08:08:53 Final Performing Location [facility] [place] [address]
--- OUTSIDE RECORDS SUMMARY | 2024-03-11 12:04 | External Medical Summary ---
Author Name Unknown Address Unknown Organization K09:[facility] 56[address]02 [address] [place] [address] Laboratory Report Ordering Provider Test Date Status NÉSTOR NAIR 03/11/2024 08:08:53 Final Observation Date Value Abnormality Reference (Units ) Status BUN 03/11/2024 08:08:53 15 6-20 (mg/dL) Final Creatinine 03/11/2024 08:08:53 1.2 0.6-1.2 (mg/dL) Final Glomerular filtration rate/1.73 sq M.predicted [Volume Rate/Area] in Serum, Plasma or Blood by Creatinine-based formula (CKD-EPI) 03/11/2024 08:08:53 67 >=60 (mL/min) Final eGFR is calculated based on the CKD-EPI 2020 equation. Sodium 03/11/2024 08:08:53 134 Below low normal 135 -146 (mmol/L) Final Potassium 03/11/2024 08:08:53 4.0 3.5-5.1 (m mol/L) Final Cl 03/11/2024 08:08:53 98 98-107 (mm ol/L) Final CO2 03/11/2024 08:08:53 23 22-32 (mmo l/L) Final Anion gap 03/11/2024 08:08:53 13 7-15 (mmol /L) Final Glucose 03/11/2024 08:08:53 122 Above high normal 70 -120 (mg/dL) Final Albumin 03/11/2024 08:08:53 3.6 Below low normal 3.8 -5.0 (g/dL) Final AST (Aspartate aminotransferase) 03/11/2024 08:08:53 22 10-50 (U/L) Fin al Alk Phos 03/11/2024 08:08:53 52 35-130 (U/ L) Final Bilirubin, Total 03/11/2024 08:08:53 0.6 <=1 .2 (mg/dL) Final Calcium 03/11/2024 08:08:53 9.1 8.4-10.2 ( mg/dL) Final Protein 03/11/2024 08:08:53 6.6 6.0-8.3 (g /dL) Final ALT (Alanine aminotransferase) 03/11/2024 08:08:53 6 Below low normal 10-50 (U/L) Final Performing Location [facility] [address] [place] [address]
--- OUTSIDE RECORDS SUMMARY | 2024-03-11 12:05 | External Medical Summary ---
Author Name Unknown Address Unknown Organization K09:[facility] [place] [address] Laboratory Report Ordering Provider Test Date Status NÉSTOR NAIR 03/04/2024 08:20:00 Final Observation Date Value Abnormality Reference (Units ) Status Nucleated erythrocytes/100 leukocytes [Ratio] in Blood by Automated count 03/04/2024 08:20:00 Final Elliptocytes [Presence] in Blood by Light microscopy 03/04/2024 08:20:00 Moderate Abnormal None Seen Final Schistocytes 03/04/2024 08:20:00 Few Abnormal None Seen Final Performing Location [facility] [address]
--- OUTSIDE RECORDS SUMMARY | 2024-03-11 12:05 | External Medical Summary | Summary of Care ---
Author Name Unknown Organization [facility] Address [address] [facility] [address] Phone [phone] Care Team Providers Care Environmental Services Technician Name Role Phone Ajit Parekh DO Primary Care Provider Reason for Visit * Reason Comments Outpatient Testing Encounter Details Date Type Department Care Team (Late st Contact Info) Description 03/04/2024 7:40 AM EDT Laboratory Laboratory [facility] [address] [place] [phone] [place], Lab Scenery [address] [place] [address] MDS (myelodysplastic syndrome) (HCC) Allergies Active Allergy Reactions Criticality Noted Date Comments Fluvastatin 05/16/2018 Other Reaction(s): Joint Pain Simvastatin 05/16/2018 Other Reaction(s): Joint Pain documented as of this encounter (statuses as of 03/04/2024) Medications Medication Sig Dispensed Refills Start Date [...] 50 MCG/ACT Nasal Suspension (Flonase) Administer 1 [place] into nostril in the morning. 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 Depression with anxiety 06/16/2023 Coronary artery disease invo lving [place] coronary artery of [place] heart without angina pectoris 06/16/2023 Status post placement of implantable loop record er 06/16/2023 documented as of this encounter (statuses as of 03/04/2024) Social History Tobacco Use Types Packs/Day Years [...] Care Team (Late st Contact Info) Description 03/04/2024 8:45 AM EDT Nurse Only Hematology/Oncology Scenery [place] [place] [address] [place] [phone] [place], Nurse Hem Onc Scenery [address] [place] [address] Arrived 03/08/2024 8:00 AM EDT Laboratory Laboratory [facility] [place] [address] [place], [place] [address] [place], Lab Scenery [address] [facility] [place], [place] [address] 03/08/2024 9:00 AM EDT Immunization/Injecti on Hematology/Oncology Treatment, [place] [address] [place], [place] [phone] Zoie, Chair 9 Hem Onc Scenery [address] [place], [place] [address] 03/11/2024 8:10 AM EDT Laboratory Laboratory [facility] [place] [address] [place], [place] [address] [place], Lab Scenery [address] [facility] [place], [place] [address] 03/11/2024 9:15 AM EDT Nurse Only Hematology/Oncology [facility] [place] [address] [place], [place] [phone] Zo[place], Nurse Hem Onc Scenery [address] [place] [address] 03/11/2024 10:30 AM EDT Cardiac Studies Cardiology, [facility] [address] [facility] [place] [address] Movalleliazar Pacer [facility] [address] [place] [address] 03/15/2024 8:30 AM EST Laboratory Laboratory Scenery [facility] [place] [address] [place], [place] [address] [place], Lab Scenery [address] [place], [place] [address] 03/15/2024 9:00 AM EST Office Visit Hematology/Oncology Scenery [facility] [place] [address] [place], [place] [phone] Rachel [place] CRNP [address] [facility] [place] [address] 03/15/2024 9:30 AM EST Hem/Onc Treatment Hematology/Oncology Treatment, [address], [place] [address] Zoie, Chair 4 Hem Onc Scenery [address] [place], [place] [address] 03/16/2024 9:00 AM EST Hem/Onc Treatment Hematology/Oncology Treatment, [address], [place] [phone] Zo[place], Chair 6 Hem Onc Scenery [address] [place], [place] [address] 03/17/2024 9:00 AM EST Hem/Onc Treatment Hematology/Oncology Treatment, [place] 200 [facility], [place] [address] Zoie, Chair 10 Hem Onc Scenery [address] [place], [place] [address] 03/18/2024 8:00 AM EST Laboratory Laboratory Scenery [facility] [address] [place], [place] [address] [place], Lab Scenery [address] [place], [place] [address] 03/18/2024 9:00 AM EST Hem/Onc Treatment Hematology/Oncology Treatment, [place] 200 [place] [phone] [place], Chair 10 Hem Onc Scene 200 [facility] [place] [address] 03/19/2024 9:00 AM EST Hem/Onc Treatment Hematology/Oncology Treatment, [place] [address] [facility], [place] [phone] [place], Chair 6 Hem Onc Scenery 200 [facility] [place], [place] [address] 04/13/2024 8:45 AM EST Office Visit Hematology/Oncology [facility] [place] 200 [facility] [place], [place] [phone] Saurabh Pisano MD 200 [facility] [place] [address] 06/08/2024 9:00 AM EST Office Visit Cardiology, [facility] 132 [facility] [place] [address] Alyse Rivera CRNP [address] [place] [phone] 06/17/2024 1:00 PM EST Office Visit Family Practice [facility] [address] [facility] [place] [address] Ajit Parekh DO 132 [facility] [place] [address] Pending Results Name Type Priority Associated Diagnoses Date /Time CBC WITH WBC DIFFERENTIAL Lab STAT MDS (myelodysplastic syndrome) ([facility]) 03/04/2024 8:20 AM EDT COMPREHENSIVE METABOLIC PANEL Lab STAT MDS (myelodysplastic syndrome) ([facility]) 03/04/2024 8:20 AM EDT CBC Lab STAT MDS (myelodysplastic syndrome) ([facility]) 03/04/2024 8:20 AM EDT DIFFERENTIAL, AUTOMATED Lab STAT MDS (myelodysplastic syndrome) ([facility]) 03/04/2024 8:20 AM EDT Health Maintenance Due Date Last Done Comments DISCUSS TOBACCO CESSATION (REFER TO SMARTSET #4245) 1950 Depression Monitoring 1962 Hepatitis C Screening [...] this encounter Medical Devices Implanted Type Area Community Assistant Device Identifier Shelf Expiration Date Model / Serial / Lot Port Implant W8f Poly Cath - [id number] Implanted:Qty : 1 on 02/11/2024 by Kei Aranda MD at OR [facility] Right: Chest CR BARD : PERIPHERAL VASCULAR [id number] 10/09/2024 [id number] / / [id number] documented as of this encounter Visit Diagnoses Diagnosis MDS (myelodysplastic syndrome) (HCC) Myelodysplastic syndrome, unspecified documented in this encounter Care Teams Environmental Services Technician Relationship Specialty Start Date End Date Ajit Parekh DO [address] [place] [address] PCP - General Family Medicine 06/12/23 documented as of this encounter
--- OUTSIDE RECORDS SUMMARY | 2024-03-11 12:05 | External Medical Summary ---
Author Name Unknown Address Unknown Organization K09:[facility] 56[address] [place] [address] Laboratory Report Ordering Provider Test Date Status NÉSTOR NAIR 03/04/2024 08:20:00 Final Observation Date Value Abnormality Reference (Units ) Status BUN 03/04/2024 08:20:00 10 6-20 (mg/dL) Final Creatinine 03/04/2024 08:20:00 1.0 0.6-1.2 (mg/dL) Final Glomerular filtration rate/1.73 sq M.predicted [Volume Rate/Area] in Serum, Plasma or Blood by Creatinine-based formula (CKD-EPI) 03/04/2024 08:20:00 81 >=60 (mL/min) Final eGFR is calculated based on the CKD-EPI 2020 equation. Sodium 03/04/2024 08:20:00 136 135-146 (m mol/L) Final Potassium 03/04/2024 08:20:00 4.0 3.5-5.1 (m mol/L) Final Cl 03/04/2024 08:20:00 101 98-107 (mm ol/L) Final CO2 03/04/2024 08:20:00 25 22-32 (mmo l/L) Final Anion gap 03/04/2024 08:20:00 10 7-15 (mmol /L) Final Glucose 03/04/2024 08:20:00 142 Above high normal 70 -120 (mg/dL) Final Albumin 03/04/2024 08:20:00 3.8 3.8-5.0 (g /dL) Final AST (Aspartate aminotransferase) 03/04/2024 08:20:00 18 10-50 (U/L) Fin al Alk Phos 03/04/2024 08:20:00 58 35-130 (U/ L) Final Bilirubin, Total 03/04/2024 08:20:00 0.4 <=1 .2 (mg/dL) Final Calcium 03/04/2024 08:20:00 9.0 8.4-10.2 ( mg/dL) Final Protein 03/04/2024 08:20:00 6.5 6.0-8.3 (g /dL) Final ALT (Alanine aminotransferase) 03/04/2024 08:20:00 <5 Below low normal 10-50 (U/L) Final Performing Location [facility] [address] [place] [address]
--- OUTSIDE RECORDS SUMMARY | 2024-03-11 12:05 | External Medical Summary ---
Author Name Unknown Address Unknown Organization K09:[facility] [place] [address] Laboratory Report Ordering Provider Test Date Status NÉSTOR NAIR 03/08/2024 08:13:36 Final Observation Date Value Abnormality Reference (Units ) Status WBC, Total 03/08/2024 08:13:36 3.60 Below low normal 4. 00-10.80 (K/uL) Final RBC 03/08/2024 08:13:36 2.16 4.50-5.25 (M/uL) Final Hemoglobin 03/08/2024 08:13:36 8.6 Below low normal 14 .0-16.8 (g/dL) Final HCT 03/08/2024 08:13:36 25.6 Below low normal 40. 0-48.4 (%) Final MCV 03/08/2024 08:13:36 118.5 82.0-99.5 (fL) Final MCH 03/08/2024 08:13:36 39.8 27.0-34.0 (pg) Final MCHC 03/08/2024 08:13:36 33.6 32.0-36.0 (g/dL) Final RDW 03/08/2024 08:13:36 16.4 11.5-15.5 (%) Final Platelets 03/08/2024 08:13:36 72 Below low normal 140 -400 (K/uL) Final MPV 03/08/2024 08:13:36 13.7 6.6-11.1 ( fL) Final Performing Location [facility] [place] [address]
--- OUTSIDE RECORDS SUMMARY | 2024-03-11 12:05 | External Medical Summary ---
Author Name Unknown Address Unknown Organization K09:[facility] [place] [address] Laboratory Report Ordering Provider Test Date Status NÉSTOR NAIR 03/04/2024 08:20:00 Final Observation Date Value Abnormality Reference (Units ) Status WBC, Total 03/04/2024 08:20:00 2.22 Below low normal 4. 00-10.80 (K/uL) Final RBC 03/04/2024 08:20:00 2.03 4.50-5.25 (M/uL) Final Hemoglobin 03/04/2024 08:20:00 8.2 Below low normal 14 .0-16.8 (g/dL) Final HCT 03/04/2024 08:20:00 24.1 Below low normal 40. 0-48.4 (%) Final MCV 03/04/2024 08:20:00 118.7 82.0-99.5 (fL) Final MCH 03/04/2024 08:20:00 40.4 27.0-34.0 (pg) Final MCHC 03/04/2024 08:20:00 34.0 32.0-36.0 (g/dL) Final RDW 03/04/2024 08:20:00 16.2 11.5-15.5 (%) Final Platelets 03/04/2024 08:20:00 50 Below low normal 140 -400 (K/uL) Final MPV 03/04/2024 08:20:00 12.5 6.6-11.1 ( fL) Final Performing Location [facility] [place] [address]
--- OUTSIDE RECORDS SUMMARY | 2024-03-11 12:05 | External Medical Summary | Summary of Care ---
Author Name Unknown Organization [facility] Address [address] [facility] [place] [address] Phone [phone] Care Team Providers Care Retort Loader Name Role Phone Ajit Parekh DO Primary Care Provider Reason for Visit * Reason Comments Re-Check Lab review Encounter Details Date Type Department Care Team (Late st Contact Info) Description 03/04/2024 8:45 AM EDT Nurse Only Hematology/Oncology [facility] [place] [address] [place] [address] [place], Nurse Hem Onc Scenery [address] [place] [address] Re-Check (Lab review) Allergies Active Allergy Reactions Criticality Noted Date [...] 50 MCG/ACT Nasal Suspension (Flonase) Administer 1 [place] into nostril in the morning. 06/06/2023 Active [...] MG Oral Tablet (Compazine)Indicat ions:MDS (myelodysplastic syndrome) ([facility]) Take 1 Tablet by mouth every 6 [...] anxiety 06/16/2023 Coronary artery disease invo lving [place] coronary artery of [place] heart without angina pectoris 06/16/2023 Status post [...] on file documented as of this encounter Progress Notes * Gregorio Baca, RN - 03/04/2024 9:09 AM EDT Lab review completed: Hgb 8.2 Plt 50 Pt ok for today and stable. Had pacemaker placed yesterday. Pt had one episode of dizziness with HRin the 50's but this only lasted a minute and HR increased to 60-70's. Pt ambulated from exam room 4 in stable condition. documented in this encounter Plan of Treatment Upcoming Encounters Date Type Department Care Team (Late st Contact Info) Description 03/08/2024 8:00 AM EDT Laboratory Laboratory [facility] [place] [address] [place] [phone] [place], Lab [facility] [address] [facility] [place] [address] 03/08/2024 9:00 AM EDT Immunization/Injecti on Hematology/Oncology Treatment, [place] [address] [place] [address] Zoie, Chair 9 Hem Onc [facility] [address] [place] [address] 03/11/2024 8:10 AM EDT Laboratory Laboratory [facility] [place] [address] [place] [address] [place], Lab Scenery [address] [facility] [place] [address] 03/11/2024 9:15 AM EDT Nurse Only Hematology/Oncology [facility] [place] [address] [place] [phone] Zoie, Nurse Hem Onc [facility] [address] [place] [address] 03/11/2024 10:30 AM EDT Cardiac Studies Cardiology, [facility] 132 [place] [address] MiraeliazarHarpreetr [facility] 132 [facility] [place] [address] 03/15/2024 8:30 AM EST Laboratory [facility] [place] [address] [place] [address] [place], Lab Scenery [address] [place], [place] [address] 03/15/2024 9:00 AM EST Office Visit Hematology/Oncology [facility] [place] [address] [place], [place] [phone] Rachel Albarado CRNP [address] [facility] [place] [address] 03/15/2024 9:30 AM EST Hem/Onc Treatment Hematology/Oncology Treatment, [place] 200 [facility], [place] [phone] Zoie, Chair 4 Hem Onc Scenery [address] [place], [place] [address] 03/16/2024 9:00 AM EST Hem/Onc Treatment Hematology/Oncology Treatment, [place] [address] [facility], [place] [address] Zoie, Chair 6 Hem Onc Scenery [address] [place], [place] [address] 03/17/2024 9:00 AM EST Hem/Onc Treatment Hematology/Oncology Treatment, [place] [address] [place] [address] Zoie, Chair 10 Hem Onc Scenery [address] [place], [place] [address] 03/18/2024 8:00 AM EST Laboratory Laboratory Scenery [place] [address] [place] [address] Zoie, Lab Scenery [address] [place], [place] [address] 03/18/2024 9:00 AM EST Hem/Onc Treatment Hematology/Oncology Treatment, [place] [address] [place] [phone] Zoie, Chair 10 Hem Onc Scene 200 [facility] [place] [address] 03/19/2024 9:00 AM EST [facility] [address] [place] [phone] Zoie, Chair 6 Hem Onc [facility] 200 [facility] [place] [address] 04/13/2024 8:45 AM EST Office Visit Hematology/Oncology [facility] 200 [facility] [place] [phone] Saurabh Pisano MD [address] [place], [place] [address] 06/08/2024 9:00 AM EST Office Visit Cardiology, [facility] [address] [place] [address] Alyse Rivera CRNP [address] [place] [phone] 06/17/2024 1:00 PM EST Office Visit Family Practice [facility] [address] [place] [address] Ajit Parekh DO [address] [place] [address] Health Maintenance Due Date Last Done Comments DISCUSS TOBACCO CESSATION (REFER TO SMARTSET #3506) 1950 Depression Monitoring 1962 Hepatitis C Screening [...] this encounter Medical Devices Implanted Type Area Mailroom Assistant Device Identifier Shelf Expiration Date Model / Serial / Lot Port Implant W8f Poly Cath - [id number] Implanted:Qty : 1 on 02/11/2024 by Kei Aranda MD at [facility] Right: Chest CR BARD : PERIPHERAL VASCULAR [id number] 10/09/2024 [id number] / / [id number] documented as of this encounter Care Teams Retort Loader Relationship Specialty Start Date End Date Ajit Parekh DO [address] [place] [address] PCP - General Family Medicine 06/12/23 documented as of this encounter
--- OUTSIDE RECORDS SUMMARY | 2024-03-11 12:05 | External Medical Summary ---
Author Name Unknown Address Unknown Organization K09:[facility] [place] [address] [place] [address] Laboratory Report Ordering Provider Test Date Status NÉSTOR NAIR 03/08/2024 08:13:36 Final Observation Date Value Abnormality Reference (Units ) Status Nucleated erythrocytes/100 leukocytes [Ratio] in Blood by Automated count 03/08/2024 08:13:36 Final Elliptocytes [Presence] in Blood by Light microscopy 03/08/2024 08:13:36 Moderate Abnormal None Seen Final Polychromasia [Presence] in Blood by Light microscopy 03/08/2024 08:13:36 Moderate Abnormal None Seen Final Schistocytes 03/08/2024 08:13:36 Few Abnormal None Seen Final Performing Location [facility] [address] [place] [address]
--- OUTSIDE RECORDS SUMMARY | 2024-03-11 12:05 | External Medical Summary ---
Author Name Unknown Address Unknown Organization K09:[facility] [place] [address] Laboratory Report Ordering Provider Test Date Status NÉSTOR NAIR 03/04/2024 08:20:00 Final Observation Date Value Abnormality Reference (Units ) Status SYNC LEUKOCYTES IN BLOOD BY AUTOMATED COUNT 03/04/2024 08:20:00 2.22 Below low normal 4.00-10.80 (K/uL) Final Segs 03/04/2024 08:20:00 31.0 Below low normal 40.0-75.0 (%) Final Lymphs % 03/04/2024 08:20:00 49.1 Above high normal 18.0-42.0 (%) Final Monos 03/04/2024 08:20:00 18.0 Above high normal 1.0-11.0 (%) Final Eosinophils 03/04/2024 08:20:00 0.5 0.0-6.0 (%) Final Basos 03/04/2024 08:20:00 1.4 0.0-2.0 (%) Final Absolute Segs 03/04/2024 08:20:00 0.69 Below low normal 1.80-7.70 (K/uL) Final Lymphs, absolute 03/04/2024 08:20:00 1.09 1.00-4.80 (K/ul) Final Monos, Abs 03/04/2024 08:20:00 0.40 0.00-1.10 (K/uL) Final Eos, Abs 03/04/2024 08:20:00 0.01 0.00-0.70 (K/uL) Final Basos, Abs 03/04/2024 08:20:00 0.03 0.00-0.20 (K/uL) Final Performing Location [facility] [place] [address]
--- OUTSIDE RECORDS SUMMARY | 2024-03-11 12:05 | External Medical Summary ---
Author Name Unknown Address Unknown Organization K09:[facility] [place] 56[address] [place] [address] Laboratory Report Ordering Provider Test Date Status NÉSTOR NAIR 03/08/2024 08:13:36 Final Observation Date Value Abnormality Reference (Units ) Status BUN 03/08/2024 08:13:36 14 6-20 (mg/dL) Final Creatinine 03/08/2024 08:13:36 1.1 0.6-1.2 (mg/dL) Final Glomerular filtration rate/1.73 sq M.predicted [Volume Rate/Area] in Serum, Plasma or Blood by Creatinine-based formula (CKD-EPI) 03/08/2024 08:13:36 70 >=60 (mL/min) Final eGFR is calculated based on the CKD-EPI 2020 equation. Sodium 03/08/2024 08:13:36 137 135-146 (m mol/L) Final Potassium 03/08/2024 08:13:36 3.7 3.5-5.1 (m mol/L) Final Cl 03/08/2024 08:13:36 101 98-107 (mm ol/L) Final CO2 03/08/2024 08:13:36 23 22-32 (mmo l/L) Final Anion gap 03/08/2024 08:13:36 13 7-15 (mmol /L) Final Glucose 03/08/2024 08:13:36 126 Above high normal 70 -120 (mg/dL) Final Albumin 03/08/2024 08:13:36 3.7 Below low normal 3.8 -5.0 (g/dL) Final AST (Aspartate aminotransferase) 03/08/2024 08:13:36 19 10-50 (U/L) Fin al Alk Phos 03/08/2024 08:13:36 55 35-130 (U/ L) Final Bilirubin, Total 03/08/2024 08:13:36 0.6 <=1 .2 (mg/dL) Final Calcium 03/08/2024 08:13:36 9.5 8.4-10.2 ( mg/dL) Final Protein 03/08/2024 08:13:36 7.0 6.0-8.3 (g /dL) Final ALT (Alanine aminotransferase) 03/08/2024 08:13:36 <5 Below low normal 10-50 (U/L) Final Performing Location [facility] [place] [address] [place] [address]
--- OUTSIDE RECORDS SUMMARY | 2024-03-11 12:05 | External Medical Summary ---
Author Name Unknown Address Unknown Organization K09:[facility] [place] [address] Laboratory Report Ordering Provider Test Date Status NÉSTOR NAIR 03/08/2024 08:13:36 Final Observation Date Value Abnormality Reference (Units ) Status SYNC LEUKOCYTES IN BLOOD BY AUTOMATED COUNT 03/08/2024 08:13:36 3.60 Below low normal 4.00-10.80 (K/uL) Final Segs 03/08/2024 08:13:36 50.3 40.0-75.0 (%) Final Lymphs % 03/08/2024 08:13:36 37.5 18.0-42.0 (%) Final Monos 03/08/2024 08:13:36 9.4 1.0-11.0 (%) Final Eosinophils 03/08/2024 08:13:36 0.6 0.0-6.0 (%) Final Basos 03/08/2024 08:13:36 2.2 Above high normal 0.0-2.0 (%) Final Absolute Segs 03/08/2024 08:13:36 1.81 1.80-7.70 (K/uL) Final Lymphs, absolute 03/08/2024 08:13:36 1.35 1.00-4.80 (K/ul) Final Monos, Abs 03/08/2024 08:13:36 0.34 0.00-1.10 (K/uL) Final Eos, Abs 03/08/2024 08:13:36 0.02 0.00-0.70 (K/uL) Final Basos, Abs 03/08/2024 08:13:36 0.08 0.00-0.20 (K/uL) Final Performing Location [facility] [place] [address]
[2024-03-11] MEDS ORDERED: POLYETHYLENE (MIRALAX) 17 GM PACK PO PRN (14:09)
[2024-03-11] MEDS ORDERED: MAGNESIUM HYDROXIDE SUSP 30 ML UDC PO PRN (14:09)
[2024-03-11] MEDS: ACETAMINOPHEN 325 MG TAB PO PRN (15:04)
[2024-03-11] MEDS: ADVANCED PROBIOTIC 625 MG CAPSULE PO SCH (15:09)
--- NOTE | 2024-03-11 15:36 | Electrocardiogram Report ---
Test Reason : Blood Pressure : */* mmHG Vent. Rate : 77 BPM Atrial Rate : 77 BPM P-R Int : 174 ms QRS Dur : 86 ms QT Int : 416 ms P-R-T Axes : 33 -7 -13 degrees QTcB Int : 470 ms Normal sinus rhythm Nonspecific T wave abnormality Abnormal ECG When compared with ECG of 03-Mar-2024 14:21, Sinus rhythm has replaced Electronic atrial pacemaker Criteria for Inferior infarct are no longer Present Nonspecific T wave abnormality now evident in Lateral leads Confirmed by Tu Seaman ([id number]) on 03/11/2024 3:36:20 PM Referred By: REFERRED SELF Confirmed By: Tu Seaman
[2024-03-11] MEDS: DAPTOmycin 475 MG in SYRINGE 0 ML IV SCH (16:13)
--- NOTE | 2024-03-11 16:57 | Communication Note ---
Date of Service: March 11, 2024 Pacemaker insertion site appears infected with notable surrounding erythema, skin breakdown and serous drainage. His pacemaker was placed on 03/03/[address] Mosley. Changed IV ABX to daptomycin + Zosyn. He continues to spike fevers. Blood cultures pending. Cardiology and infectious diseases consulted for further recommendations/input. Will keep him NPO at midnight pending possible need for surgical intervention.
[2024-03-11 17:33] LABS: Hematocrit (blood only) 22.2 % (42.0-52.0); Hemoglobin 7.6 g/dl (14.0-18.0)
--- NOTE | 2024-03-11 17:54 | Cardiology Consultation ---
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 * Case reviewed with EP , NPO after midnight for tentative device extraction tomorrow, 03/12/24. (2) Myelodysplastic syndrome: * Immunocompromised as stated. Outpatient acyclovir continued. (3) CAD (coronary artery disease): * Continue clopidogrel, metoprolol succinate 25 mg twice daily for now. * Rosuvastatin on hold given treatment with daptomycin (4) Syncope and collapse: * Patient with recurrent syncope, findings of both tachycardia and bradycardia prompting pacemaker. * Future considerations include Micra wireless pacemaker placement after infection resolved the patient has completed a sufficient course of antibiotics. Given his high risk features and immunosuppression however even this may pose unacceptable risk of reinfection. I spent a total of 90 minutes on the date of service in preparation, delivery, and documentation of the care provided to this patient, excluding any time spent in the performance of separately billed services. History of Present Illness Attending Physician: Denver Multani MD History of Present Illness Mikie Leon is a 73 year old male seen in cardiology consultation per the request of Elsa Forbes PA-C for the evaluation of left infraclavicular pacemaker pocket infection. The patient is followed by hematology oncology for history of myelodysplastic sy ndrome and has resultant pancytopenia. He receives Aranesp every other week and had previously been on G-CSF having been transition to Vidaza. He had initially been evaluated by cardiology service for syncope in May, and a loop recorder was placed at that time. In the interim, the patient has had continued symptoms of syncope with recent findings on the loop recorder of rapid atrial tachycardia followed by sinus bradycardia down to the 30s. He therefore underwent outpatient [facility] dual-chamber permanent pacemaker on 03/03/2024 and was discharged later that same day. He was to have his post device outpatient wound check today at [facility] cardiology clinic, but in the meantime was at a hematology oncology nursing appointment when he described symptoms of progressive fevers, chills, generalized malaise over the last week. He was therefore referred to the emergency department. He has been found to have severe erythema and swelling of the pacemaker incision and surrounding pocket consistent with infection. At present, the patient is hemodynamically stable. He has been febrile with most recent temperature of 39.2 C. Past Medical History: 1. Myelodysplastic syndrome 2. Coronary heart disease status post PCI and subsequent CABG x 3 in 2010 in [place] 3. Hypertension 4. Dyslipidemia 5. Alcohol use 6. Cigarette smoking, continues to smoke 1/2 pack/day Social History: lives a alone Daughter lives in [place] Allergies Allergy/AdvReac Type Severity Reaction Status Date / Time fluvastatin [From Lescol] AdvReac Joint Pain Verified 03/11/24 12:06 simvastatin [From Zocor] AdvReac Joint Pain Verified 03/11/24 12:06 Home Medications Medication Instructions Recorded Confirmed Type clopidogrel 75 mg tablet 75 mg PO DAILY 05/16/18 03/11/24 History latanoprost 0.005 % eye drops 1 drp ophthalmic (eye) PM 05/16/18 03/11/24 History multivitamin 1 tab PO DAILY 05/16/18 03/11/24 History rosuvastatin 20 mg tablet 20 mg PO DAILY 05/16/18 03/11/24 History sildenafil 50 mg tablet 10 mg PO DAILY PRN Other 06/03/23 03/11/24 History venlafaxine 150 mg 150 mg PO DAILY 06/03/23 03/11/24 History capsule,extended release 24 hr benzonatate 100 mg capsule 100 mg PO TID PRN cough #30 caps 06/06/23 03/11/24 Rx folic acid 400 mcg tablet 400 mcg PO QAM #30 tabs 06/06/23 03/11/24 Rx pantoprazole 40 mg tablet,delayed 40 mg PO QAM #30 tabs 06/06/23 03/11/24 Rx release thiamine HCl (vitamin B1) 100 mg 100 mg PO QAM #30 tabs 06/06/23 03/11/24 Rx tablet metoprolol succinate 25 mg 25 mg PO BID #180 tabs 03/03/24 03/11/24 Rx tablet,extended release 24 hr (Toprol XL) acyclovir 400 mg tablet 400 mg PO BID 03/11/24 03/11/24 History isosorbide mononitrate 30 mg 30 mg PO DAILY 03/11/24 03/11/24 History tablet,extended release 24 hr levofloxacin 500 mg tablet 500 mg PO DAILY 03/11/24 03/11/24 History posaconazole 100 mg tablet,delayed 300 mg PO DAILY 03/11/24 03/11/24 History release prochlorperazine maleate 10 mg 10 mg PO Q6H PRN nausea/vomiting 03/11/24 03/11/24 History tablet Patient History Medical History Heart attack Surgical History History of heart bypass surgery Family History Father Cancer Colonic polyp Heart disease Social History Smoking Status: Current every day smoker Tobacco Type: Cigarettes Second Hand Exposure: No; Do You Dip or Chew Tobacco: No; Hx Alcohol Use: No Hx Substance Use: No Preferred Language: Turkish Communication Ability: Effective Rubber Engraver Required: No Beliefs That Will Affect Care: None Current Living Situation: Alone Feels Safe at Home: Yes Safety Concerns: Feels Safe At This Time Assistive Devices: Glasses and Hearing Aid - Bilateral Review of Systems Review of Systems: All systems reviewed & are unremarkable except as noted in HPI & below Physical Exam Physical Exam: Temp Pulse Resp BP Pulse Ox O2 Del Method O2 Flow Rate 39.2 C H 78 20 143/68 H 96 Room Air 0 03/11/24 16:05 03/11/24 16:05 03/11/24 16:05 03/11/24 16:05 03/11/24 16:05 03/11/24 16:05 03/11/24 16:03 General: Ill appearance without acute distress Eyes: conjunctiva are pink and non-injected, sclera clear Neck: normal jugular venous pulse, no hepatojugular reflux Chest: Right sided Chemo-Port without erythema, left infraclavicular pacemaker pocket with noted swelling, erythema at the level of the incision and around the pacemaker generator, no drainage Lungs: clear to auscultation and percussion Cardiac Exam: - regular heart sounds, no murmurs, rubs, or gallops, no jugular venous distention Abdomen: abdomen soft, non-tender, no abnormal masses and no hepatosplenomegaly Musculoskeletal: no gait disturbance, no weakness Extremities: no edema and no cyanosis Neuro:awake, conversant, follows commands, no focal motor deficits Results & Data Laboratory Results Cardiac Enzymes 03/11/24 Range/Units 10:10 AST 20 (13-39) U/L Coagulation 03/11/24 Range/Units 10:10 PT 11.7 (9.0-12.0) Seconds APTT 25 (21-31) Seconds CBC 03/11/24 03/11/24 Range/Units 10:10 17:05 WBC 3.81 L (4.8-10.8) K/ul RBC 1.74 L (4.70-6.10) M/uL Hgb 6.9 L* 7.6 L (14.0-18.0) g/dl Hct 19.6 L* 22.2 L (42.0-52.0) % Plt Count 106 L (130-400) K/uL Neut # (Auto) 2.66 (1.40-6.50) K/uL Lymph # (Auto) 0.80 L (1.20-3.40) K/uL [place] # (Auto) 0.28 (0.11-0.59) K/uL Eos # (Auto) 0.00 (0.00-0.50) K/uL Baso # (Auto) 0.02 (0.00-0.20) K/uL Comprehensive Metabolic Panel 03/11/24 Range/Units 10:10 Sodium 133 L (136-145) mmol/L Potassium 4.0 (3.5-5.1) mmol/L Chloride 99 (98-107) mmol/L Carbon Dioxide 26 (21-32) mmol/L BUN 15 (6-23) mg/dl Creatinine 1.05 (0.6-1.4) mg/dl Glucose 92 (70-99(Fasting)) mg/dl Calcium 8.8 (8.6-10.3) mg/dl AST 20 (13-39) U/L ALT 11 (7-52) U/L Alkaline Phosphatase 42 (34-104) U/L Total Protein 6.5 (6.0-8.3) gm/dl Albumin 3.7 (3.4-5.0) gm/dl Intake and Output 03/11/24 03/11/24 03/11/24 06:59 14:59 22:59 Intake Total 0 310 / 310 Balance 0 310 / 310 Intake: Intake (Blood Product) Amt 0 310 / 310 Packed Cells, Leukoreduced 0 310 / 310 Unit [id number] Other: Weight 93.758 kg Weight Measurement Method Standing Scale Patient Weight 03/12/24 06:59 Weight 93.758 kg Chest X-Ray 03/11/24 09:57 XR chest 1V portable CLINICAL HISTORY: fever, recent pacemaker TECHNIQUE: Single frontal radiograph of the chest was obtained. Comparison: Comparison is made to chest radiograph 03/03/2024 FINDINGS: Lines and tubes are stable. Cardiomegaly is noted. The aortic arch is calcified. The lungs are clear. No evidence of pleural effusion or pneumothorax. IMPRESSION: No acute abnormalities and in particular no radiographic evidence of pneumonia. Diagnostic Findings Summary of transthoracic echocardiogram report performed 06/03/2023: Normal left ventricular wall motion, LVEF 55%, proximal ascending aorta mildly dilated 3.8 cm Grade 2 diastolic dysfunction, no regional wall motion abnormalities (3) CAD (coronary artery disease) Associated angina: without angina Coronary Disease-Associated Artery/Lesion type: [place] artery [place] vs. transplanted heart: [place] heart Qualified Code(s): I25.10 - Atherosclerotic heart disease of [place] coronary artery without angina pectoris
[2024-03-11] MEDS: 4.5GM X1 IV ONE (18:03)
[2024-03-11] MEDS: ACETAMINOPHEN 325 MG TAB PO ONE (18:43)
[2024-03-11] MEDS ORDERED: diphenhydrAMINE Capsule 25 MG CAP PO PRN (19:12)
[2024-03-11] MEDS ORDERED: CEFEPIME 2000MG 2,000 MG/20 ML SYR IV SCH (19:45)
[2024-03-11] MEDS: LATANOPROST 0.005% OP SOLN 2.5 ML BTL OPB SCH (20:24)
[2024-03-11] MEDS: KETOROLAC TROMETHAMINE 15 MG/ML VIAL IV ONE (20:24)
[2024-03-11] MEDS: METOPROLOL SUCC 25MG EXT REL TAB PO SCH (20:24)
[2024-03-11] MEDS: ACYCLOVIR 400 MG TAB PO SCH (20:25)
[2024-03-11] MEDS: ACETAMINOPHEN 500 MG TAB PO STA (22:09)
--- OUTSIDE RECORDS SUMMARY | 2024-03-11 22:25 | External Medical Summary | Summary of Care ---
Author Name Unknown Organization [facility] Address [address] [address] Phone [phone] Care Team Providers Care Breakfast Manager Name Role Phone Ajit Parekh DO Primary Care Provider Encounter Details Date Type Department Care Team (Late st Contact Info) Description 03/11/2024 9:15 AM EDT Nurse Only Hematology/Oncology [facility] [place] [address] [place] [phone] [place], Nurse Hem Onc Scenery [address] [place] [id number] Arrived Allergies Active Allergy Reactions Criticality Noted [...] 50 MCG/ACT Nasal Suspension (Flonase) Administer 1 [place] into nostril in the morning. 06/06/2023 Active [...] anxiety 06/16/2023 Coronary artery disease invo lving [place]stone coronary artery of [place] heart without angina pectoris 06/16/2023 Status post [...] Sign Reading Time Taken Comments Blood Pressure 139/58 03/11/2024 9:55 AM EDT Pulse 71 03/11/2024 9:55 AM EDT Temperature 38.8 C (101.8 F) 03/11/2024 9:55 AM E DT Respiratory Rate 25 03/11/2024 9:55 AM EDT Oxygen Saturation 90% 03/11/2024 9:55 AM EDT Inhaled Oxygen Concentration - - Weight - - Height - - Body Mass Index - - documented in this encounter Progress Notes * Kathy Almaguer LPN - 03/11/2024 9:22 AM EDT Patient in treatment room due to complaint of fever, SOB, general malaise, dizziness and lightheadedness, and difficulty with urination. Patient denies any CP, pressure, but does state he has been coughing with occasional "runny nose". Upon being evaluated by Dr. Pisano, patient advised to go the emergency room to r/o possible infection. Patient verbalized understanding and is agreeable to going to [facility] ED. Patient continued to complain of being light headed and dizzy. He refused to allow nursing staff to take him out to his transportation. Patient ambulated with two nurses to ensure safety and prevent falls. Patient safely in his friend's vehicle and was transported to [facility] ED by friend. Per patient request called, [facility] and cancelled his appointment for today at 10:30 am. documented in this encounter Plan of Treatment Upcoming Encounters Date Type Department Care Team (Late st Contact Info) Description 03/15/2024 8:30 AM EST Laboratory [facility] [address] [place] [phone] [place] [address] 03/15/2024 9:00 AM EST Office Visit Hematology/Oncology [facility] [address] [place] [phone] Rachel [facility]ado [facility] [address] [facility] [place] [address] 03/15/2024 9:30 AM EST Hem/Onc Treatment Hematology/Oncology Treatment, [place] [address] [place] [address] [place], Chair 4 Hem Onc Scenery [address] [place], [place] [address] 03/16/2024 9:00 AM EST Hem/Onc Treatment Hematology/Oncology Treatment, [place] [address] [place] [address] [place], Chair 6 Hem Onc Scenery [address] [place], [place] [address] 03/17/2024 9:00 AM EST Hem/Onc Treatment Hematology/Oncology Treatment, [place] [address] [place] [address] [place], Chair 10 Hem Onc Scenery [address] [place], [place] [address] 03/18/2024 8:00 AM EST Laboratory Laboratory [place] [address] [facility] [place], [place] [address] [place], Lab Scenery [address] [place] [address] 03/18/2024 9:00 AM EST Hem/Onc Treatment Hematology/Oncology Treatment, [place] [address] [place] [address] [place], Chair 10 Hem Onc Scenery [address] [place] [address] 03/19/2024 9:00 AM EST Hem/Onc Treatment Hematology/Oncology Treatment, [place] [address] [place] [address] [place], Chair 6 Hem Onc Scenery [address] [place] [address] 03/22/2024 8:10 AM EST Laboratory Laboratory [facility] [address] [place], [place] [phone] [place], Lab [facility] [address] [facility] [place] [place] [address] 03/22/2024 9:00 AM EST Immunization/Injecti on Hematology/Oncology Treatment, [place] [address] [place], [place] [phone] [place], Chair 9 Hem Onc [facility] [address] [facility] [place], [place] [address] 04/13/2024 8:45 AM EST Office Visit Hematology/Oncology [facility] [place] [address] [place] [phone] Saurabh Pisano MD [address] [place], [place] [address] 06/08/2024 9:00 AM EST Office Visit Cardiology[facility] [address] [facility] [place] [address] Alyse Rivera CRNP [address] [place], [place] [address] [address] 06/17/2024 1:00 PM EST Office Visit Family [facility] [address] [place] [address] Ajit Parekh DO [address] [place] [address] Health Maintenance Due Date Last Done Comments DISCUSS TOBACCO CESSATION (REFER TO SMARTSET #7013) 1950 Depression Monitoring 1962 Hepatitis C Screening [...] this encounter Medical Devices Implanted Type Area Bilingual Sales Representative Device Identifier Shelf Expiration Date Model / Serial / Lot Port Implant W8f Poly Cath - [id number] Implanted:Qty : 1 on 02/11/2024 by Kei Aranda MD at [facility] Right: Chest CR BARD : PERIPHERAL VASCULAR [id number] 10/09/2024 [id number] / / [id number] documented as of this encounter Care Teams Breakfast Manager Relationship Specialty Start Date End Date Ajit Parekh DO [address] [place] [address] PCP - General Family Medicine 06/12/23 documented as of this encounter
[2024-03-12] MEDS: ONDANSETRON INJ 2 MG/ML 2 ML VIAL IV PRN (00:04)
--- NOTE | 2024-03-12 00:11 | Communication Note ---
Date of Service: March 12, 2024 Patient with intermittent fever during blood transfusion. SOB symptoms, nausea, facial fullness, wheezes as per RN. Patient denies chest pain. Chest x-ray as per manipulation cardiomegaly AP Possible transfusion reaction Hold BT and follow transfusion reaction protocol. Neb treatment, Zofran and Benadryl.
[2024-03-12] MEDS: oxyCODONE HCL IR 5 MG TAB (IMMEDIATE RELEASE) PO PRN (00:12)
[2024-03-12] MEDS: ALBUT/IPRATROP 3MG/0.5MG NEB 3 ML VIAL NEB STA (00:20)
[2024-03-12 00:37] LABS: Magnesium 1.7 mg/dl (1.7-2.4)
[2024-03-12] MEDS: ALBUMIN 25% 12.5 GM/50 ML VIAL IV ONE (00:53)
[2024-03-12] MEDS: diphenhydrAMINE 50 MG/ML VIAL IV STA (00:53)
[2024-03-12] MEDS: PIPERACILLIN/TAZOBACTAM 4.5 GM/100 ML BAG IV SCH (01:10)
[2024-03-12] MEDS: ONDANSETRON INJ 2 MG/ML 2 ML VIAL IV STA (01:11)
[2024-03-12 01:49] LABS: Basophils # (auto) 0.02 K/uL (0.00-0.20); Basophils % (auto) 0.4 %; Hemoglobin 7.7 g/dl (14.0-18.0); Immature Granulocytes # (auto) 0.08 K/uL (0.01-0.20); Immature Granulocytes % (auto) 1.7 %; Lymphocytes # (auto) 0.86 K/uL (1.20-3.40); Lymphocytes % (auto) 18.1 %; Mean Corpuscular Hemoglobin 37.4 pg (25.0-34.0); Mean Corpuscular Volume 106.8 fL (80.0-100.0); Mean Platelet Volume 12.4 fL (9.4-12.4); Monocytes # (auto) 0.33 K/uL (0.11-0.59); Monocytes % (auto) 6.9 %; Neutrophils # (auto) 3.47 K/uL (1.40-6.50); Neutrophils % (auto) 72.9 %; Nucleated RBC # (auto) 0.04 K/uL (0.00-0.12); Nucleated RBC % (auto) 0.8 %; Platelet Count 101 K/uL (130-400); RDW Coefficient of Variation 20.5 % (11.5-14.5); RDW Standard Deviation 79.3 fL (36.4-46.3); Red Blood Count 2.06 M/uL (4.70-6.10); White Blood Count 4.76 K/ul (4.8-10.8)
[2024-03-12 02:00] LABS: Blood Urine Negative (Negative)
[2024-03-12 02:22] LABS: Anisocytosis Present; Ovalocytes 1+
[2024-03-12 02:24] LABS: Albumin Globulin Ratio 1.3 (0.9-2); Albumin Level 3.6 gm/dl (3.4-5.0); BUN Creatinine Ratio 16.5 (10-20); Bilirubin,Total 1.2 mg/dl (0.2-1.0); Calcium 8.5 mg/dl (8.6-10.3); Creatinine Clr Calc Pharmacy 46.3 ml/min; Ferritin 520.8 ng/ml (8-388); Globulin 2.8 gm/dl (2.5-4.0); Magnesium 1.6 mg/dl (1.7-2.4); Phosphorus 3.1 mg/dl (2.5-4.9); Potassium 3.7 mmol/L (3.5-5.1); Total Protein 6.4 gm/dl (6.0-8.3)
[2024-03-12 02:26] LABS: Folate (Folic Acid),Ser orPlas > 22.30 ng/ml (>5.38)
[2024-03-12 02:27] LABS: Vitamin B12 339 pg/ml (180-914)
[2024-03-12] MEDS: MAGNESIUM SULFATE / D5W 1 GM/100 ML BAG IV ONE ×2 (04:49→11:40)
[2024-03-12] MEDS: SODIUM CHLORIDE 0.9% 1,000 ML IV ONE (04:55)
[2024-03-12] MEDS ORDERED: Nursing to Pharmacy Communication SCH ×3 (06:15→11:45)
[2024-03-12 07:15] LABS: Hypersegmented Neutrophils Occasional
--- NOTE | 2024-03-12 07:37 | XRay Report ---
XR chest 1V portable CLINICAL HISTORY: Shortness of breath. COMPARISON STUDY chest CT December 05, 2023 and chest radiograph performed earlier today . FINDINGS: Right internal jugular [id number], dual lead left subclavian pacer and median sternotomy wires are again noted. Cardiomegaly is unchanged. No evidence for pulmonary edema. No pneumothorax o r pleural effusion is present. There is no consolidation to suggest pneumonia. IMPRESSION: No acute cardiopulmonary findings. No change in appearance of the chest. ACT 112: Negative or not required by law. Electronically signed by: Heber Parikh M.D. 03/12/2024 7:36 AM
--- NOTE | 2024-03-12 08:08 | History & Physical Bridge Note ---
Date of Service March 12, 2024 History & Physical Bridge Note I have examined the patient, reviewed the History & Physical and in the interval since the performance of the History & Physical I have noted the following changes of clinical significance: pt had a recent ppm due to TBS and sycnope; unfortunately due to his marked immunocompromised he developed a pocket infection and is here for a pacemaker extraction. I discussed the procedure and potential risks with the patient and consents signed.
--- NOTE | 2024-03-12 08:10 | Pre Anesthesia Assessment ---
Date of Service March 12, 2024 Pre Sedation Assessment Vital Signs Temp Pulse Pulse Resp BP BP Pulse Ox 03/12/24 07:52 36.6 C 79 18 122/60 94 03/12/24 06:32 36.9 C 03/12/24 04:19 39.1 C H 80 18 130/69 96 03/12/24 00:20 82 18 95 03/11/24 23:52 37.3 C 74 24 134/49 L 97 03/11/24 23:40 37.4 C 80 18 132/49 L 97 03/11/24 23:14 03/11/24 23:11 37.2 C 75 18 150/67 H 96 03/11/24 22:56 37.8 C H 74 18 136/58 L 97 03/11/24 22:39 37.3 C 78 18 148/67 H 95 03/11/24 21:39 76 03/11/24 21:35 37.4 C 03/11/24 20:27 38.1 C H 03/11/24 20:11 80 126/86 03/11/24 19:31 38.7 C H 79 20 133/59 L 94 03/11/24 19:29 38.7 C H 79 20 133/59 L 94 03/11/24 19:12 37.9 C H 80 18 145/65 H 95 03/11/24 18:39 37.8 C H 81 20 136/58 L 96 03/11/24 16:05 39.2 C H 78 20 143/68 H 96 03/11/24 16:03 39.2 C H 78 20 143/68 H 96 03/11/24 15:08 39.2 C H 80 20 148/70 H 96 03/11/24 15:08 39.2 C H 80 20 148/70 H 96 03/11/24 14:15 03/11/24 14:15 37.4 C 78 20 155/50 H 98 03/11/24 14:12 79 03/11/24 14:10 37.4 C 78 20 150/55 H 98 03/11/24 14:10 37.4 C 78 20 150/55 H 98 03/11/24 14:10 03/11/24 14:10 37.4 C 78 20 150/55 H 98 03/11/24 13:38 37.4 C 79 20 151/77 H 98 03/11/24 13:23 37.3 C 73 24 134/60 97 03/11/24 13:06 37.2 C 71 18 135/64 95 03/11/24 12:23 73 03/11/24 10:43 73 12 109/58 L 93 03/11/24 09:34 37.5 C 74 18 131/71 93 Pulse Ox O2 Del Method O2 Flow Rate O2 Flow Rate 03/12/24 07:52 Room Air 03/12/24 06:32 03/12/24 04:19 Room Air 03/12/24 00:20 Room Air 03/11/24 23:52 03/11/24 23:40 03/11/24 23:14 Room Air 03/11/24 23:11 03/11/24 22:56 03/11/24 22:39 03/11/24 21:39 03/11/24 21:35 03/11/24 20:27 03/11/24 20:11 03/11/24 19:31 03/11/24 19:29 0 03/11/24 19:12 03/11/24 18:39 0 03/11/24 16:05 Room Air 03/11/24 16:03 0 03/11/24 15:08 Room Air 03/11/24 15:08 0 03/11/24 14:15 Room Air 03/11/24 14:15 Room Air 03/11/24 14:12 03/11/24 14:10 0 03/11/24 14:10 Room Air 03/11/24 14:10 98 0 03/11/24 14:10 Room Air 03/11/24 13:38 03/11/24 13:23 03/11/24 13:06 03/11/24 12:23 03/11/24 10:43 Room Air 03/11/24 09:34 Cardiovascular RRR, no murmur, no edema Respiratory normal respiratory effort, lungs clear to auscultation Pre-Sedation Airway Assessment Smoking Status: Current every day smoker Hx Sleep Apnea: No Hx Difficult Intubation: No Oral Cavity: + WNL Mallampati Class: II ASA: ASA3 NPO Status Date of Last Intake of Fluids: 03/11/24 Date of Last Intake of Solid Food: 03/11/24 Procedure Planning Contraindications for Sedation: none Current Medications Reviewed: Yes Notes The planned sedation has been discussed with the patient. Informed Consent was obtained. I have identified the patient, determined the appropriateness of sedation and have assessed the patient immediately prior to the procedure. All medicine(s) and interventions are by my order.
[2024-03-12] MEDS ORDERED: ROSUVASTATIN CALCIUM 20 MG TAB PO SCH (09:00)
[2024-03-12] MEDS: BUPIVACAINE 0.25% PF 30 ML VIAL ONE (09:11)
[2024-03-12] MEDS: VANCOMYCIN HCL 1000MG/20ML VIAL ONE (09:11)
[2024-03-12] MEDS: LIDOCAINE 1% LOCAL 20 ML VIAL ONE (09:11)
[2024-03-12] MEDS: ceFAZolin 330 MG/ML 1 GM VIAL ONE (09:12)
[2024-03-12] MEDS: fentaNYL citrate PF 100 MCG/2 ML VIAL ONE (09:12)
[2024-03-12] MEDS: MIDAZOLAM HCL 5 MG/ML 1 ML VIAL ONE (09:12)
--- NOTE | 2024-03-12 09:27 | Post Anesthesia Assessment ---
Date of Service March 12, 2024 Post Sedation Assessment Vital Signs Temp Pulse Pulse Resp BP BP BP 03/12/24 08:05 16 100/81 100/81 03/12/24 08:05 63 14 100/81 03/12/24 08:00 03/12/24 08:00 75 03/12/24 07:52 36.6 C 79 18 122/60 03/12/24 06:32 36.9 C 03/12/24 04:19 39.1 C H 80 18 130/69 03/12/24 00:20 82 18 03/11/24 23:52 37.3 C 74 24 134/49 L 03/11/24 23:40 37.4 C 80 18 132/49 L 03/11/24 23:14 03/11/24 23:11 37.2 C 75 18 150/67 H 03/11/24 22:56 37.8 C H 74 18 136/58 L 03/11/24 22:39 37.3 C 78 18 148/67 H 03/11/24 21:39 76 03/11/24 21:35 37.4 C 03/11/24 20:27 38.1 C H 03/11/24 20:11 80 126/86 03/11/24 19:31 38.7 C H 79 20 133/59 L 03/11/24 19:29 38.7 C H 79 20 133/59 L 03/11/24 19:12 37.9 C H 80 18 145/65 H 03/11/24 18:39 37.8 C H 81 20 136/58 L 03/11/24 16:05 39.2 C H 78 20 143/68 H 03/11/24 16:03 39.2 C H 78 20 143/68 H 03/11/24 15:08 39.2 C H 80 20 148/70 H 03/11/24 15:08 39.2 C H 80 20 148/70 H 03/11/24 14:15 03/11/24 14:15 37.4 C 78 20 155/50 H 03/11/24 14:12 79 03/11/24 14:10 37.4 C 78 20 150/55 H 03/11/24 14:10 37.4 C 78 20 150/55 H 03/11/24 14:10 03/11/24 14:10 37.4 C 78 20 150/55 H 03/11/24 13:38 37.4 C 79 20 151/77 H 03/11/24 13:23 37.3 C 73 24 134/60 03/11/24 13:06 37.2 C 71 18 135/64 03/11/24 12:23 73 03/11/24 10:43 73 12 109/58 L 03/11/24 09:34 37.5 C 74 18 131/71 Pulse Ox Pulse Ox O2 Del Method O2 Flow Rate O2 Flow Rate 03/12/24 08:05 96 Room Air 03/12/24 08:05 96 Room Air 03/12/24 08:00 Room Air 03/12/24 08:00 03/12/24 07:52 94 Room Air 03/12/24 06:32 03/12/24 04:19 96 Room Air 03/12/24 00:20 95 Room Air 03/11/24 23:52 97 03/11/24 23:40 97 03/11/24 23:14 Room Air 03/11/24 23:11 96 03/11/24 22:56 97 03/11/24 22:39 95 03/11/24 21:39 03/11/24 21:35 03/11/24 20:27 03/11/24 20:11 03/11/24 19:31 94 03/11/24 19:29 94 0 03/11/24 19:12 95 03/11/24 18:39 96 0 03/11/24 16:05 96 Room Air 03/11/24 16:03 96 0 03/11/24 15:08 96 Room Air 03/11/24 15:08 96 0 03/11/24 14:15 Room Air 03/11/24 14:15 98 Room Air 03/11/24 14:12 03/11/24 14:10 98 0 03/11/24 14:10 98 Room Air 03/11/24 14:10 98 0 03/11/24 14:10 98 Room Air 03/11/24 13:38 98 03/11/24 13:23 97 03/11/24 13:06 95 03/11/24 12:23 03/11/24 10:43 93 Room Air 03/11/24 09:34 93 Recovery Score Activity: Moves 4 extremities Respiration: Deep Breath/Cough Circulation: +/-20% PreAnes Value Consciousness: Fully Awake Oxygen Saturation: > 92% On Room Air Discharge Sedation Level of Care: Fast Track Phase II Post Sedation Plan On clinical assessment, the patient appears to have tolerated the sedation without complications. Patient is recovering as anticipated. Patient will continue to be monitored by nursing and may be discharged when sedation discharge criteria are met per below protocol. Upon Completions of procedure up to 15 minutes continue every 5 minute vital signs and the P.A.R. score; then discharge to a Phase I or Fast Track to Phase II per the following guidelines: * Discharge Patient to appropriate Phase II area if PAR is 8 or greater or return to pre- procedure baseline. The post - procedure orders will be as directed. * If PAR score is less than 8 or not return to pre-procedure baseline then patient will follow Phase I monitoring till PAR is reached for Phase II. The Phase I may be done in procedure room or may call to secure a Phase I area. * If naloxone or flumazenil are used for reversal, hold in Phase I for continued monitoring from when last reversal dose was given for a minimum of 60 minutes or longer pending the nurse and/or physician discretion of patient condition before discharge to Phase II. Please call the Sedation Physician to re-evaluate and complete post-note for discharge to Phase II area. Do NOT discharge from procedure sedation or Phase 1 until post- sedation evalua tion note is complete by procedure /sedation MD Sedation Discharge Instructions to be given to the patient at discharge to home.
--- NOTE | 2024-03-12 09:31 | Operative Report ---
Post Operative Report DICTATED BY:Renetta Mosley D.O. DATE OF PROCEDURE: 03/12/2024. PREOPERATIVE DIAGNOSES: Device pocket infection POSTOPERATIVE DIAGNOSIS: Same PROCEDURE: A dual-chamber rate responsive permanent pacemaker explantation under fluoroscopic guidance. SURGEON: Renetta Mosley DO ASSISTANTS: None. ANESTHESIA: Monitored conscious sedation administered under my supervision by Kenya Zarate. Start time 08:33, end time 09:19, a total of 3 mg of Versed and 75 mcg of fentanyl. INTRAVENOUS FLUIDS: 0 mL. CONTRAST: None ANTIBIOTICS: 2 grams of Ancef. ADDITIONAL MEDICATIONS: None BLOOD LOSS: 20 mL. URINE OUTPUT: Not applicable. SPECIMENS: None. FINDINGS: See below. DRAINS: None. COMPLICATIONS: None. CONDITION: Stable. INDICATIONS: This is a 73-year-old gentleman who has a past medical history TBS, Syncope s/p abbot Loop 05/2023-s/p ppm and loop explant on 03/03/2024, SB, CAD, status post PCI and subsequently underwent CABG x 3 in 2009 in [place], HTN, HLD, ETOH use, PVCs, Myelodysplastic syndrome with a right sided chemo port. Pt presented to the hospital with fever and found to have a pocket infection at his pacemaker site. He was recommended pacemaker explant. CONSENT: Consent was obtained prior to the patient going into the electrophysiology lab. The patient was informed of the risks, benefits, and alternatives to the procedure. Risks include, but not limited to, sudden cardiac , cardiac arrhythmias, cerebrovascular accident, myocardial infarction, injury to his blood vessels, chamber of the heart, bleeding and infection. The patient understood these risks and agreed to the procedure as planned. Informed consent was obtained. DESCRIPTION OF PROCEDURE: The patient was brought into electrophysiology lab in a fasting state. He was connected to continuous cardiac monitoring. A timeout was performed to ensure the patient's identity and procedure correctly. He was prepped and draped in the left infraclavicular space in normal surgical standard fashion. Monitored conscious sedation was given throughout the procedure for th e patient's comfort level. Viola precautions were maintained throughout the procedure. Prophylactic antibiotics were given prior to incision. A 20 mL of 1% lidocaine and bupivacaine mixture were given in the prior surgical incision. The prior incision was opened with blunt dissection. There was dark old blood fluid somewhat whitish infected looking-no liudmila pus from the incision/pocket area. The pocket was swapped with wound cultures x 2. The sutures were removed. Then the pacemaker was revmoved from the pocket and the leads were detached from the device. The suture sleeve sutures were then removed. Stylets were then placed down the lead. Then the screws of the lead were retracted. Then with yahir retraction the leads were extracted from the body under fluoroscopic guidance. The pocket was flushed with vancomycin and saline wash. Since the skin around the incision was very friable a wound vac was used. With the assistance of wound care nurse; first Aquacel Advantage was placed over the friable surrounding tissue then the tegaderm taping from the wound vac was placed over this Aquacel dressing. Then the silver foam packing from the wound vac was placed inside the pocket with a second piece over it. Then the VAC Granufoam silver dressing medium sized was placed over the silver foam dressing and it was connected to suction. EQUIPMENT Explanted: 1. Pulse generator is a Blitsy Assurity MRI Model Number [id number] SN: [id number] implanted 03/03/2024 2. Right atrial lead, Griffith SJM Tendril STS 8 SN: [id number] implanted 03/03/2024 3. Left bundle lead, Griffith SJM Tendril STS 8 SN: [id number] implanted 03/03/2024 IMPRESSION: Successful dual chamber rate responsive permanent pacemaker explant under fluoroscopic guidance due to device pocket infection PLAN: Monitor the patient post-procedure. Return to telemetry in a isolated room for neutropenic precautions. Wound vac to suction; if over the weekend suction is not working then would pack the pocket with at least 1/2 inch iodoform and the aquacel advantage dressing over the surrounding skin. Wound care will continue to follow with the patient. IV antibiotics per ID but ideally 6 weeks.
[2024-03-12] MEDS: WATER, STERILE FOR INJ 10 ML VIAL ONE (11:42)
[2024-03-12] MEDS: CLOPIDOGREL BISULFATE 75 MG TAB PO SCH (11:43)
[2024-03-12] MEDS: FOLIC ACID 400 MCG TAB PO SCH (11:44)
[2024-03-12] MEDS: ISOSORBIDE MONO EXTENDED REL 30 MG TABCR PO SCH (11:45)
[2024-03-12] MEDS: MULTIVITAMIN TAB PO SCH (11:46)
[2024-03-12] MEDS: VENLAFAXINE HCL XR 150 MG CAPXR PO SCH (11:47)
[2024-03-12] MEDS: PANTOprazole 40 MG TAB PO SCH (11:47)
[2024-03-12] MEDS: THIAMINE HCL 100 MG TAB PO SCH (12:32)
[2024-03-12 13:06] LABS: Hematocrit (blood only) 20.7 % (42.0-52.0); Hemoglobin 7.1 g/dl (14.0-18.0)
[2024-03-12] MEDS ORDERED: SODIUM CHLORIDE 0.9% 50 ML IV PRN (13:07)
[2024-03-12] MEDS ORDERED: SODIUM CHLORIDE 0.9% 100 ML IV PRN (13:07)
[2024-03-12 13:19] LABS: Creatinine Clr Calc Pharmacy 57.7 ml/min
--- NOTE | 2024-03-12 13:19 | Hospitalist Progress Note ---
Date of Service March 12, 2024 Assessment & Plan (1) Illness: (2) Acute on chronic anemia: Plan Mikie Leon (Ken) is a 73y/o M with PMHx significant for CAD s/p CABG x 3 [2009], atrial fibrillation [not currently on anticoagulation therapy], HTN, HLD, PVCs, complete heart block s/p dual-chamber pacemaker placement [02/2024], grade II diastolic dysfunction, mild mitral regurgitation, GERD, myelodysplastic syndrome [currently undergoing chemotherapy], refractory cytopenia with multilineage dysplasia, macrocytic anemia [baseline Hgb ~9-10], neutropenia, history of alcohol use disorder and depression/anxiety who presented to the ED for evaluation of multiple constitutional symptoms. Patient was referred to the ED today by Dr. Saurabh Pisano [Hematology/Oncology] after being seen at [facility]. Patient was notably feverish in the office with a temperature of 101.8F. He was also complaining of some shortness of breath, generalized malaise, lightheadedness/dizziness and difficulty with urination. Dr. Pisano was concerned that the patient may have developed an infection and therefore sent him to the ED for further evaluation. Patient is currently undergoing chemotherapy [Vidaza] for management of myelodysplastic syndrome. Pacemaker site Infection S/P pacemaker generator and lead extraction, pocket washout and wound VAC placement on 03/12/[address] Pryor -CXR:No acute cardiopulmonary findings. No change in appearance of the chest. -ECHO: Mild concentric LVH. Left ventricle wall motion is normal. EF 55 to 60%. Pacemaker leads were visualized in the right atrium and right ventricle. No evidence of vegetation limitation of this imaging modality. -Blood culture negative to date -Wound culture pending Appreciate cardiology input Continue daptomycin, Zosyn for now Await infectious disease input Acute on Chronic Anemia: Pancytopenia S/P PRBCs Monitor CBC closely Suspected transfusion reaction Less likely--fever likely due to pacemaker site infection Workup for transfusion reaction pending Acute kidney injury Cr levels improved Monitor renal function Avoid nephrotoxic agents as able Chronic hyponatremia Sodium at baseline Monitor sodium closely Chronic alcohol use States his last alcohol drink was 10 to 12 days ago Counseled to quit drinking Hypomagnesemia Replete alkaloids as needed Monitor Myelodysplastic Syndrome: Immunocompromised state Patient follows with Dr. Saurabh Pisano Currently undergoing chemotherapy with Vidaza. Receiving biweekly Aranesp injections and weekly G-CSF injection since September 2023. Hold levofloxacin for now Continue acyclovir, posaconazole H/O recurrent syncope with recurrent tachycardia, bradycardia in the past H/O paroxysmal supraventricular tachycardia May need Micra wireless pacemaker placement once infection resolves --Continue metoprolol succinate 25 mg twice a day Tobacco Use Disorder: Smokes ~0.5 pack/day. Smoking cessation encouraged Other Chronic Medical Conditions: CAD S/P CABG Anxiety/depression GERD HTN Prediabetes Continue Plavix, isosorbide, metoprolol, Protonix, thiamine, folic acid, venlafaxine DVT Px: SCDs/TEDs for now. Anemia, thrombocytopenia, procedure Likely to start Lovenox SQ tomorrow if blood count stable Code Status: FULL CODE Admission and Anticipated Discharge Date Admission Date: March 11, 2024 Subjective Patient is seen and examined at bedside Patient had pacemaker extraction earlier today States having some pain at procedure site Dyspnea better today Denies any dizziness, nausea, vomiting, abdominal pain Discussed with cardiology today Review of Systems Review of Systems: All systems reviewed & are unremarkable except as noted in Subjective Physical Exam Physical Exam: Physical Exam: Vitals signs as noted above General Appearance: ill-appearing, no apparent distress Head: normocephalic, Atraumatic Eyes: normal inspection, EOMI Neck: supple, Trachea midline Respiratory/Chest: Normal breath sounds, CTA, left chest wound in dressing, R Chemo-Port, no accessory muscle use Cardiovascular: S1, S2, No murmur Abdomen/GI:Soft, Non tender, Bowel sounds present Extremities/Musculoskeletal:normal inspection, no edema Neurologic/Psych:AAOX3, grossly no focal neurological deficits Skin: normal color, warm Results & Data Results & Data Vital Signs (Past 12 Hours) Vital Signs Temp Pulse Pulse Resp BP BP BP 03/12/24 13:00 38.3 C H 70 18 119/63 03/12/24 12:30 39.2 C H 79 18 145/63 H 03/12/24 11:55 38.5 C H 86 18 126/53 L 03/12/24 11:40 88 17 136/64 03/12/24 11:25 37.3 C 84 18 145/66 H 03/12/24 11:15 36.9 C 88 18 151/64 H 03/12/24 11:10 93 H 17 151/64 H 03/12/24 10:59 36.9 C 96 H 18 154/68 H 03/12/24 10:55 81 17 154/68 H 03/12/24 10:34 36.8 C 86 18 124/75 03/12/24 09:52 77 18 134/41 L 03/12/24 09:36 70 18 128/51 L 03/12/24 08:05 16 100/81 100/81 03/12/24 08:05 63 14 100/81 03/12/24 08:00 03/12/24 08:00 75 03/12/24 07:52 36.6 C 79 18 122/60 03/12/24 06:32 36.9 C 03/12/24 04:19 39.1 C H 80 18 130/69 Pulse Ox O2 Del Method 03/12/24 13:00 94 Room Air 03/12/24 12:30 92 Room Air 03/12/24 11:55 92 Room Air 03/12/24 11:40 90 Room Air 03/12/24 11:25 91 Room Air 03/12/24 11:15 93 Room Air 03/12/24 11:10 90 Room Air 03/12/24 10:59 93 Room Air 03/12/24 10:55 91 Room Air 03/12/24 10:34 92 Room Air 03/12/24 09:52 Room Air 03/12/24 09:36 96 Room Air 03/12/24 08:05 96 Room Air 03/12/24 08:05 96 Room Air 03/12/24 08:00 Room Air 03/12/24 08:00 03/12/24 07:52 94 Room Air 03/12/24 06:32 03/12/24 04:19 96 Room Air Laboratory Results Short CBC 03/11/24 03/12/24 03/12/24 Range/Units 17:05 01:27 12:44 WBC 4.76 L (4.8-10.8) K/ul Hgb 7.6 L 7.7 L 7.1 L (14.0-18.0) g/dl Hct 22.2 L 22.0 L 20.7 L* (42.0-52.0) % Plt Count 101 L (130-400) K/uL BMP 03/12/24 01:27 Sodium 131 L Potassium 3.7 Chloride 98 Carbon Dioxide 23 BUN 26 H Creatinine 1.58 H D Glucose 108 H Calcium 8.5 L Liver Function 03/12/24 Range/Units 01:27 Total Bilirubin 1.2 H (0.2-1.0) mg/dl AST 21 (13-39) U/L ALT 11 (7-52) U/L Alkaline Phosphatase 38 (34-104) U/L Albumin 3.6 (3.4-5.0) gm/dl
--- NOTE | 2024-03-12 13:20 | Cardiology Progress Note ---
Date of Service March 12, 2024 Assessment & Plan (1) Infection of pacemaker pocket: Plan: * s/p pacemaker generator and lead extraction, pocket washout , wound vac 03/12/24 * Patient is immunosuppressed and is on chronic acyclovir, posaconazole, and levofloxacin therapy * Blood cultures x 2 and wound cultures obtained * Transthoracic echocardiogram reveals normal biventricular systolic function, no evidence of vegetation within the scope of limitation for this imaging modality. * Agree with antibiotics including daptomycin and Zosyn. Await ID input. Likely will need extended IV antibiotics (6 weeks). * Continue acetaminophen * Refer EP note for instructions regarding wound care (2) Myelodysplastic syndrome: Plan: * Immunocompromised as stated. Outpatient acyclovir continued. (3) CAD (coronary artery disease): Plan: * Continue clopidogrel, metoprolol succinate 25 mg twice daily for now. * Rosuvastatin on hold given treatment with daptomycin (4) PSVT (paroxysmal supraventricular tachycardia): Plan: * continue metoprolol succinate 25 mg BID for now with caution (5) Syncope and collapse: Plan: * Patient with recurrent syncope, findings of both tachycardia and bradycardia prompting pacemaker. * Currently SR in the 70s noted without recurrent tahycardia or bradycardia * Future considerations include Micra wireless pacemaker placement after infection resolved the patient has completed a sufficient course of antibiotics. Given his high risk features and immunosuppression however even this may pose unacceptable risk of reinfection. Start lovenox 40 mg SQ daily on 03/13/24 for DVT prophylaxis. Discussed case with Dr Dela Cruz for the purpose of coordination of care. Updated emergency contact, Sacha, in person. Obtained phone numbers for Daughters: Alyse: [phone] Marilee [phone] Will call them and provide update as per patient's request. I spent a total of 45 minutes on the date of service in preparation, delivery, and documentation of the care provided to this patient, excluding any time spent in the performance of separately billed services. Admission and Anticipated Discharge Date Admission Date: March 11, 2024 Subjective Patient seen in cardiology follow up. He states that when he awoke a 5:30 am , he felt slightly better than yesterday. He underwent pacemaker extraction and application of a wound vac this am. Immediately post procedure his temperature was better, but now elevated again and he feels warm. Denies shortness of breath or chest pain. Telemetry reveals SR in the 70s. Physical Exam Physical Exam: Temp Pulse Resp BP Pulse Ox O2 Del Method O2 Flow Rate 38.3 C H 70 18 119/63 94 Room Air 0 03/12/24 13:00 03/12/24 13:00 03/12/24 13:00 03/12/24 13:00 03/12/24 13:00 03/12/24 13:00 03/11/24 19:29 General: Ill appearance without acute distress Eyes: conjunctiva are pink and non-injected, sclera clear Neck: normal jugular venous pulse, no hepatojugular reflux Chest: Right sided Chemo-Port without erythema, left infraclavicular pacemaker pocket with noted swelling, erythema at the level of the incision and around the pacemaker generator, no drainage Lungs: clear to auscultation and percussion Cardiac Exam: - regular heart sounds, no murmurs, rubs, or gallops, no jugular venous distention Abdomen: abdomen soft, non-tender, no abnormal masses and no hepatosplenomegaly Musculoskeletal: no gait disturbance, no weakness Extremities: no edema and no cyanosis Neuro:awake, conversant, follows commands, no focal motor deficits Results & Data Vital Signs (Past 12 Hours) Vital Signs Temp Pulse Pulse Resp BP BP BP 03/12/24 13:00 38.3 C H 70 18 119/63 03/12/24 12:30 39.2 C H 79 18 145/63 H 03/12/24 11:55 38.5 C H 86 18 126/53 L 03/12/24 11:40 88 17 136/64 03/12/24 11:25 37.3 C 84 18 145/66 H 03/12/24 11:15 36.9 C 88 18 151/64 H 03/12/24 11:10 93 H 17 151/64 H 03/12/24 10:59 36.9 C 96 H 18 154/68 H 03/12/24 10:55 81 17 154/68 H 03/12/24 10:34 36.8 C 86 18 124/75 03/12/24 09:52 77 18 134/41 L 03/12/24 09:36 70 18 128/51 L 03/12/24 08:05 16 100/81 100/81 03/12/24 08:05 63 14 100/81 03/12/24 08:00 03/12/24 08:00 75 03/12/24 07:52 36.6 C 79 18 122/60 03/12/24 06:32 36.9 C 03/12/24 04:19 39.1 C H 80 18 130/69 Pulse Ox O2 Del Method 03/12/24 13:00 94 Room Air 03/12/24 12:30 92 Room Air 03/12/24 11:55 92 Room Air 03/12/24 11:40 90 Room Air 03/12/24 11:25 91 Room Air 03/12/24 11:15 93 Room Air 03/12/24 11:10 90 Room Air 03/12/24 10:59 93 Room Air 03/12/24 10:55 91 Room Air 03/12/24 10:34 92 Room Air 03/12/24 09:52 Room Air 03/12/24 09:36 96 Room Air 03/12/24 08:05 96 Room Air 03/12/24 08:05 96 Room Air 03/12/24 08:00 Room Air 03/12/24 08:00 03/12/24 07:52 94 Room Air 03/12/24 06:32 03/12/24 04:19 96 Room Air Laboratory Results Cardiac Enzymes 03/12/24 Range/Units 01:27 AST 21 (13-39) U/L CBC 03/11/24 03/12/24 03/12/24 Range/Units 17:05 01:27 12:44 WBC 4.76 L (4.8-10.8) K/ul RBC 2.06 L (4.70-6.10) M/uL Hgb 7.6 L 7.7 L 7.1 L (14.0-18.0) g/dl Hct 22.2 L 22.0 L 20.7 L* (42.0-52.0) % Plt Count 101 L (130-400) K/uL Neut # (Auto) 3.47 (1.40-6.50) K/uL Lymph # (Auto) 0.86 L (1.20-3.40) K/uL [place] # (Auto) 0.33 (0.11-0.59) K/uL Eos # (Auto) 0.00 (0.00-0.50) K/uL Baso # (Auto) 0.02 (0.00-0.20) K/uL Comprehensive Metabolic Panel 03/12/24 03/12/24 Range/Units 01:27 12:44 Sodium 131 L (136-145) mmol/L Potassium 3.7 (3.5-5.1) mmol/L Chloride 98 (98-107) mmol/L Carbon Dioxide 23 (21-32) mmol/L BUN 26 H (6-23) mg/dl Creatinine 1.58 H D 1.26 D (0.6-1.4) mg/dl Glucose 108 H (70-99(Fasting)) mg/dl Calcium 8.5 L (8.6-10.3) mg/dl AST 21 (13-39) U/L ALT 11 (7-52) U/L Alkaline Phosphatase 38 (34-104) U/L Total Protein 6.4 (6.0-8.3) gm/dl Albumin 3.6 (3.4-5.0) gm/dl Intake and Output 03/11/24 03/12/24 03/12/24 22:59 06:59 14:59 Intake Total 835 / 1135 300 / 1135 450 / 450 Output Total 90 / 90 125 / 125 Balance 835 / 1045 210 / 1045 325 / 325 Intake: IV 100 / 250 150 / 250 100 / 100 Albumin 25% 12.5 gm In 50 ml @ 50 / 50 50 mls/hr IV ONE ONE Rx#: [id number] Magnesium Sulfate / D5w 1 gm In 100 / 100 100 ml @ 50 mls/hr IV ONE ONE Rx#:[id number] Piperacillin/Tazobactam 4.5 gm 100 / 200 100 / 200 In 100 ml @ 25 mls/hr IV Q[facility]H [facility] Rx#:[id number] Oral 400 / 500 100 / 500 350 / 350 Intake (Blood Product) Amt 335 / 385 50 / 385 Packed Cells, Leukoreduced 0 / 50 50 / 50 Unit [id number] Packed Cells, Leukoreduced 310 / 310 Unit [id number] Packed Cells, Leukoreduced 25 / 25 Unit [id number] Output: Urine 90 / 90 125 / 125 Other: # Unmeasured Voids 1 Weight 92.8 kg (3) CAD (coronary artery disease) Associated angina: without angina Coronary Disease-Associated Artery/Lesion type: [place] artery [place] vs. transplanted heart: [place] heart Qualified Code(s): I25.10 - Atherosclerotic heart disease of [place] coronary artery without angina pectoris
--- NOTE | 2024-03-12 14:37 | Infectious Disease Consult ---
Date of Service March 12, 2024 Telehealth Information I performed this visit using a real-time telehealth connection between my location and the patients location ([facility]). After connecting through interactive tele-video, patient was identified by name and date of and/or wristband check.Patient (or authorized healthcare territory representative) was informed that this was a telemedicine visit and it was being conducted confidentially over secure lines. My office door was closed and no one else was present in the room with me.Patient (or authorized healthcare territory representative) provided consent to proceed with the visit, expressed an understanding of privacy and security of the telemedicine visit, and gave permission to have a hospital territory representative in the room in order to assist with the visit and to conduct portions of the visit, as needed. I informed the patient (or authorized healthcare territory representative) that I reviewed their record and presented the opportunity for them to ask any questions regarding the visit today. The patient agreed to participate. Assessment & Plan (1) Infection of pacemaker pocket: Plan: S/P pacemaker removal on 03/12 and I&D. (2) Status post incision and drainage: (3) Myelodysplastic syndrome: Plan I agree with both IV daptomycin and IV piperacillin/tazobactam for now. We will follow-up on the intraoperative cultures and adjust antibiotics accordingly. If blood cultures remain negative, he will likely require a short course of antibiotics (likely 10 - 14 days) from the time of pacemaker removal. Thank you for consulting infectious disease. We will continue to follow. History of Present Illness History of Present Illness Mr. Leon is a 73-year-old man with medical history of CAD status post CABG, atrial fibrillation, HTN, hyperlipidemia, complete heart block s/p dual-chamber pacemaker placement, grade 2 diastolic dysfunction, myelodysplastic syndrome (currently on chemotherapy), refractory cytopenia and history of alcohol use dis order/major depressive disorder who was admitted to [facility] on 03/11/2024 after being referred from the hematology oncology clinic for fever and suspected pacemaker pocket infection. He had a pacemaker placed in the left upper chest in late February 2024 and has been having progressive weakness with lightheadedness and dizziness as well as difficulty urinating at home. For the last several days at home. While being seen at the hematology/oncology clinic at [facility] on 03/11/2024, he was noticed to be febrile at 101.8 and there was some concern about infected pacemaker pocket especially with multiple surrounding erythema, skin breakdown and serous drainage. Therefore, he was referred to the emergency department at [facility] for further management. On presentation, he was afebrile, and the rest of his vitals were within normal limits; however, a few hours later he started spiking fevers up to 39.2. Initial workup did not show leukocytosis demonstrated pancytopenia. He was also noticed to have LIZZ. He was eventually taken for pacemaker removal and I&D of the pacemaker pocket this morning (03/12). ID team was consulted for further recommendations and to help guide antibiotic treatment. Allergies Allergy/AdvReac Type Severity Reaction Status Date / Time fluvastatin [From Lescol] AdvReac Joint Pain Verified 03/11/24 12:06 simvastatin [From Zocor] AdvReac Joint Pain Verified 03/11/24 12:06 Home Medications Medication Instructions Recorded Confirmed Type clopidogrel 75 mg tablet 75 mg PO DAILY 05/16/18 03/11/24 History latanoprost 0.005 % eye drops 1 drp ophthalmic (eye) PM 05/16/18 03/11/24 History multivitamin 1 tab PO DAILY 05/16/18 03/11/24 History rosuvastatin 20 mg tablet 20 mg PO DAILY 05/16/18 03/11/24 History sildenafil 50 mg tablet 10 mg PO DAILY PRN Other 06/03/23 03/11/24 History venlafaxine 150 mg 150 mg PO DAILY 06/03/23 03/11/24 History capsule,extended release 24 hr benzonatate 100 mg capsule 100 mg PO TID PRN cough #30 caps 06/06/23 03/11/24 Rx folic acid 400 mcg tablet 400 mcg PO QAM #30 tabs 06/06/23 03/11/24 Rx pantoprazole 40 mg tablet,delayed 40 mg PO QAM #30 tabs 06/06/23 03/11/24 Rx release thiamine HCl (vitamin B1) 100 mg 100 mg PO QAM #30 tabs 06/06/23 03/11/24 Rx tablet metoprolol succinate 25 mg 25 mg PO BID #180 tabs 03/03/24 03/11/24 Rx tablet,extended release 24 hr (Toprol XL) acyclovir 400 mg tablet 400 mg PO BID 03/11/24 03/11/24 History isosorbide mononitrate 30 mg 30 mg PO DAILY 03/11/24 03/11/24 History tablet,extended release 24 hr levofloxacin 500 mg tablet 500 mg PO DAILY 03/11/24 03/11/24 History posaconazole 100 mg tablet,delayed 300 mg PO DAILY 03/11/24 03/11/24 History release prochlorperazine maleate 10 mg 10 mg PO Q6H PRN nausea/vomiting 03/11/24 03/11/24 History tablet Patient History Medical History Heart attack Surgical History History of heart bypass surgery Family History Father Cancer Colonic polyp Heart disease Social History Smoking Status: Current every day smoker Tobacco Type: Cigarettes Second Hand Exposure: No; Do You Dip or Chew Tobacco: No; Hx Alcohol Use: No Hx Substance Use: No Preferred Language: Barbadian Communication Ability: Effective Multimedia Artist Required: No Beliefs That Will Affect Care: None Current Living Situation: Alone Feels Safe at Home: Yes Assistive Devices: Glasses and Hearing Aid - Bilateral Review of Systems Neg except for what was mentioned in H&P. Physical Exam Couldn't be performed as the encounter was conducted via telemed. Results & Data Vital Signs (Past 12 Hours) Vital Signs Temp Pulse Pulse Resp BP BP BP 03/12/24 14:09 03/12/24 13:30 37.2 C 69 18 117/57 L 03/12/24 13:00 38.3 C H 70 18 119/63 03/12/24 12:30 39.2 C H 79 18 145/63 H 03/12/24 11:55 38.5 C H 86 18 126/53 L 03/12/24 11:40 88 17 136/64 03/12/24 11:25 37.3 C 84 18 145/66 H 03/12/24 11:15 36.9 C 88 18 151/64 H 03/12/24 11:10 93 H 17 151/64 H 03/12/24 10:59 36.9 C 96 H 18 154/68 H 03/12/24 10:55 81 17 154/68 H 03/12/24 10:34 36.8 C 86 18 124/75 03/12/24 09:52 77 18 134/41 L 03/12/24 09:36 70 18 128/51 L 03/12/24 08:05 16 100/81 100/81 03/12/24 08:05 63 14 100/81 03/12/24 08:00 03/12/24 08:00 75 03/12/24 07:52 36.6 C 79 18 122/60 03/12/24 06:32 36.9 C 03/12/24 04:19 39.1 C H 80 18 130/69 Pulse Ox Pulse Ox O2 Del Method O2 Del Method 03/12/24 14:09 95 Room Air 03/12/24 13:30 98 Room Air 03/12/24 13:00 94 Room Air 03/12/24 12:30 92 Room Air 03/12/24 11:55 92 Room Air 03/12/24 11:40 90 Room Air 03/12/24 11:25 91 Room Air 03/12/24 11:15 93 Room Air 03/12/24 11:10 90 Room Air 03/12/24 10:59 93 Room Air 03/12/24 10:55 91 Room Air 03/12/24 10:34 92 Room Air 03/12/24 09:52 Room Air 03/12/24 09:36 96 Room Air 03/12/24 08:05 96 Room Air 03/12/24 08:05 96 Room Air 03/12/24 08:00 Room Air 03/12/24 08:00 03/12/24 07:52 94 Room Air 03/12/24 06:32 03/12/24 04:19 96 Room Air Laboratory Results Microbiology: 03/11: 2 sets of blood culture negative to date 03/11: Superficial serous fluid culture from the pacemaker surgical wound with no growth to date 03/12: 2 intraoperative tissue cultures and 2 foreign body cultures pending
[2024-03-12] MEDS: POSACONAZOLE PO SCH (16:19)
--- NOTE | 2024-03-12 17:27 | Communication Note ---
Date of Service: March 12, 2024 Spoke to patient's daughter, Alyse, phone number in my earlier note , and provided updates. Answered questions to her satisfaction. Attempted to reach daughter, Marilee, was unable to reach her. Left a broad voicemail message and referred her to her sister whom I had just spoken to for more details.
[2024-03-12] MEDS: MAGNESIUM CHLORIDE W/CALCIUM 64MG DELAYED REL TAB PO SCH (20:18)
[2024-03-12 20:58] LABS: Hematocrit (blood only) 20.7 % (42.0-52.0); Hemoglobin 7.1 g/dl (14.0-18.0)
[2024-03-13] MEDS: ENOXAPARIN INJ 30 MG/0.3 ML SYR SQ SCH (08:06)
[2024-03-13 08:13] LABS: BUN Creatinine Ratio 21.8 (10-20); Calcium 8.4 mg/dl (8.6-10.3); Creatinine Clr Calc Pharmacy 66.6 ml/min; Magnesium 2.3 mg/dl (1.7-2.4); Potassium 3.4 mmol/L (3.5-5.1)
[2024-03-13 08:14] LABS: Hematocrit (blood only) 20.7 % (42.0-52.0); Hemoglobin 7.4 g/dl (14.0-18.0); Mean Corpuscular Hemoglobin 37.9 pg (25.0-34.0); Mean Corpuscular Hgb Conc 35.7 g/dL (32.0-36.0); Mean Corpuscular Volume 106.2 fL (80.0-100.0); Mean Platelet Volume 11.7 fL (9.4-12.4); Platelet Count 118 K/uL (130-400); RDW Coefficient of Variation 20.3 % (11.5-14.5); RDW Standard Deviation 77.9 fL (36.4-46.3); Red Blood Count 1.95 M/uL (4.70-6.10); White Blood Count 4.45 K/ul (4.8-10.8)
[2024-03-13] MEDS: POTASSIUM CHLORIDE CRTAB 20 MEQ TABCR PO ONE (09:01)
--- NOTE | 2024-03-13 12:48 | Hospitalist Progress Note ---
Date of Service March 13, 2024 Assessment & Plan (1) Illness: (2) Acute on chronic anemia: Plan Mikie Leon (Ken) is a 73y/o M with PMHx significant for CAD s/p CABG x 3 [2009], atrial fibrillation [not currently on anticoagulation therapy], HTN, HLD, PVCs, complete heart block s/p dual-chamber pacemaker placement [02/2024], grade II diastolic dysfunction, mild mitral regurgitation, GERD, myelodysplastic syndrome [currently undergoing chemotherapy], refractory cytopenia with multilineage dysplasia, macrocytic anemia [baseline Hgb ~9-10], neutropenia, history of alcohol use disorder and depression/anxiety who presented to the ED for evaluation of multiple constitutional symptoms. Patient was referred to the ED today by Dr. Saurabh Pisano [Hematology/Oncology] after being seen at [facility]. Patient was notably feverish in the office with a temperature of 101.8F. He was also complaining of some shortness of breath, generalized malaise, lightheadedness/dizziness and difficulty with urination. Dr. Pisano was concerned that the patient may have developed an infection and therefore sent him to the ED for further evaluation. Patient is currently undergoing chemotherapy [Vidaza] for management of myelodysplastic syndrome. Pacemaker site Infection S/P pacemaker generator and lead extraction, pocket washout and wound VAC placement on 03/12/[address] Pryor -CXR:No acute cardiopulmonary findings. No change in appearance of the chest. -ECHO: Mild concentric LVH. Left ventricle wall motion is normal. EF 55 to 60%. Pacemaker leads were visualized in the right atrium and right ventricle. No evidence of vegetation limitation of this imaging modality. -Blood culture negative to date -Wound culture no growth to date Appreciate cardiology input Continue daptomycin, Zosyn Appreciate ID input Pain control Hypokalemia Replete and monitor Acute on Chronic Anemia: Pancytopenia S/P PRBCs Monitor CBC closely No plan to transfuse today Suspected transfusion reaction Less likely--fever likely due to pacemaker site infection Workup for transfusion reaction pending Acute kidney injury Cr back to baseline Monitor renal function Avoid nephrotoxic agents as able Chronic hyponatremia Sodium at baseline Monitor sodium closely Chronic alcohol use States his last alcohol drink was 10 to 12 days ago Counseled to quit drinking Hypomagnesemia Replete electrolytes as needed Monitor Myelodysplastic Syndrome: Immunocompromised state Patient follows with Dr. Saurabh Pisano Currently undergoing chemotherapy with Vidaza. Receiving biweekly Aranesp injections and weekly G-CSF injection since September 2023. Hold levofloxacin for now Continue acyclovir, posaconazole H/O recurrent syncope with recurrent tachycardia, bradycardia in the past H/O paroxysmal supraventricular tachycardia May need Micra wireless pacemaker placement once infection resolves --Continue metoprolol succinate 25 mg twice a day Tobacco Use Disorder: Smokes ~0.5 pack/day. Smoking cessation encouraged Other Chronic Medical Conditions: CAD S/P CABG Anxiety/depression GERD HTN Prediabetes Continue Plavix, isosorbide, metoprolol, Protonix, thiamine, folic acid, venlafaxine DVT Px: Lovenox SQ Code Status: FULL CODE Admission and Anticipated Discharge Date Admission Date: March 11, 2024 Subjective Patient is seen and examined at bedside States having pain at chest wound Also reports headache associated with chills No other complaints today Denies any dyspnea, dizziness, nausea, vomiting, abdominal pain Review of Systems Review of Systems: All systems reviewed & are unremarkable except as noted in Subjective Physical Exam Physical Exam: Physical Exam: Vitals signs as noted above General Appearance: ill-appearing, no apparent distress Head: normocephalic, Atraumatic Eyes: normal inspection, EOMI Neck: supple, Trachea midline Respiratory/Chest: Normal breath sounds, CTA, left chest wound in dressing, R Chemo-Port, no accessory muscle use Cardiovascular: S1, S2, No murmur Abdomen/GI:Soft, Non tender, Bowel sounds present Extremities/Musculoskeletal:normal inspection, no edema Neurologic/Psych:AAOX3, grossly no focal neurological deficits Skin: normal color, warm Results & Data Results & Data Vital Signs (Past 12 Hours) Vital Signs Temp Pulse Pulse Resp BP Pulse Ox O2 Del Method 03/13/24 11:01 37.6 C H 72 18 143/68 H 96 Room Air 03/13/24 08:20 Room Air 03/13/24 08:08 69 147/63 H 03/13/24 07:23 66 03/13/24 06:58 36.8 C 64 18 146/78 H 97 Room Air 03/13/24 03:06 36.9 C 66 19 135/64 96 Room Air Laboratory Results Short CBC 03/12/24 03/12/24 03/13/24 Range/Units 12:44 19:58 07:02 WBC 4.45 L (4.8-10.8) K/ul Hgb 7.1 L 7.1 L 7.4 L (14.0-18.0) g/dl Hct 20.7 L* 20.7 L* 20.7 L* (42.0-52.0) % Plt Count 118 L (130-400) K/uL BMP 03/12/24 03/13/24 12:44 07:02 Sodium 132 L Potassium 3.4 L Chloride 99 Carbon Dioxide 25 BUN 24 H Creatinine 1.26 D 1.10 Glucose 114 H Calcium 8.4 L
--- NOTE | 2024-03-13 13:38 | Cardiology Progress Note ---
Date of Service March 13, 2024 Assessment & Plan (1) Infection of pacemaker pocket: (2) Myelodysplastic syndrome: (3) CAD (coronary artery disease): Plan: * (4) PSVT (paroxysmal supraventricular tachycardia): (5) Syncope and collapse: Plan: * Start lovenox 40 mg SQ daily on 03/13/24 for DVT prophylaxis. Discussed case with Dr Dela Cruz for the purpose of coordination of care. Updated emergency contact, Sacha, in person. Obtained phone numbers for Daughters: Alyse: [phone] Marilee [phone] Will call them and provide update as per patient's request. I spent a total of 45 minutes on the date of service in preparation, delivery, and documentation of the care provided to this patient, excluding any time spent in the performance of separately billed services. Plan s/p pacemaker generator and lead extraction, pocket washout , wound vac 03/12/24 * Patient is immunosuppressed and is on chronic acyclovir, posaconazole, and levofloxacin therapy * Blood cultures x 2 and wound cultures obtained - prelim blood cultures negative * ID consulted * Transthoracic echocardiogram reveals normal biventricular systolic function, no evidence of vegetation within the scope of limitation for this imaging modality. * Agree with antibiotics including daptomycin and Zosyn. Likely will need extended IV antibiotics (6 weeks). Per ID if blood cultures remain negative, possibly only short course of antibiotics indicated. * Continue acetaminophen for fever. * Refer EP note for instructions regarding wound care * Currently SR in the 70s noted without recurrent tachycardia or bradycardia * Future considerations include Micra wireless pacemaker placement after infection resolved the patient has completed a sufficient course of antibiot ics. Given his high risk features and immunosuppression however even this may pose unacceptable risk of reinfection. * Continue low dose metoprolol succinate 25 mg BID for now * Immunocompromised as stated. Outpatient acyclovir continued. * Continue clopidogrel * Rosuvastatin on hold given treatment with daptomycin Case discussed with Dr. Hughes I spent a total of 30 minutes on the date of service in preparation, delivery, and documentation of the care provided to this patient, excluding any time spent in the performance of separately billed services. Ariadne Lilly PA-C Department of Cardiology, [facility] This chart was completed in part utilizing Speech Voice Recognition Software. Grammatical errors, random word insertions, pronoun errors, and incomplete sentences are an occasional consequence of this system due to software limitations, ambient noise, and hardware issues. Any formal questions or concerns about the content, text, or information contained within the body of this dictation should be directly addressed to the provider for clarification. Admission and Anticipated Discharge Date Admission Date: March 11, 2024 Supervising Physician Co-Signing Physician Notes I have reviewed the advanced practitioner's documentation on the date of service referenced in note, and I agree with, and take responsibility for the plan of care. 73-year-old male with history of tachybradycardia syndrome underwent pacemaker p lacement on March 03, 2024, coronary artery disease with prior CABG x 3 and PCI, hypertension, dyslipidemia, immunosuppressed myelodysplastic syndrome with the Chemo-Port on chemotherapy supposed to get his next chemotherapy cycle next week presents with pacemaker site infection. He underwent pacemaker explant on March 12 has a wound VAC in place. Reports yesterday night was not able to sleep well felt hot and flushed. Last high-grade fever was around 1 PM yesterday. 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 Subjective Patient resting in bed. Ongoing fevers noted with chills reported by patient. Denies chest pain or SOB. wound vac in place. No arrhythmias on telemetry. No symptomatic bradycardia Review of Systems Review of Systems: All systems reviewed & are unremarkable except as noted in HPI & below Physical Exam Constitutional: WD/WN, vitals as above well developed; no acute distress Neck: trachea midline, no thyromegaly Respiratory: normal respiratory effort, lungs clear to auscultation Cardiovascular: Rate/Rhythm: regular rate and regular rhythm Heart Sounds: no murmur Vessels: no JVD Extremities: no edema Wound vac on upper left chest wall. Draining Gastrointestinal (Abdomen): normal bowel sounds, soft, nontender, no hepatosplenomegaly Skin: no rashes, warm and dry Results & Data Vital Signs (Past 12 Hours) Vital Signs Temp Pulse Pulse Resp BP Pulse Ox O2 Del Method 03/13/24 11:01 37.6 C H 72 18 143/68 H 96 Room Air 03/13/24 08:20 Room Air 03/13/24 08:08 69 147/63 H 03/13/24 07:23 66 03/13/24 06:58 36.8 C 64 18 146/78 H 97 Room Air 03/13/24 03:06 36.9 C 66 19 135/64 96 Room Air Laboratory Results CBC 03/12/24 03/13/24 Range/Units 19:58 07:02 WBC 4.45 L (4.8-10.8) K/ul RBC 1.95 L (4.70-6.10) M/uL Hgb 7.1 L 7.4 L (14.0-18.0) g/dl Hct 20.7 L* 20.7 L* (42.0-52.0) % Plt Count 118 L (130-400) K/uL Comprehensive Metabolic Panel 03/13/24 Range/Units 07:02 Sodium 132 L (136-145) mmol/L Potassium 3.4 L (3.5-5.1) mmol/L Chloride 99 (98-107) mmol/L Carbon Dioxide 25 (21-32) mmol/L BUN 24 H (6-23) mg/dl Creatinine 1.10 (0.6-1.4) mg/dl Glucose 114 H (70-99(Fasting)) mg/dl Calcium 8.4 L (8.6-10.3) mg/dl Intake and Output 03/12/24 03/13/24 03/13/24 22:59 06:59 14:59 Intake Total 1450 / 2400 400 / 2400 650 / 650 Output Total 100 / 1100 475 / 1100 Balance 1350 / 1300 -75 / 1300 650 / 650 Intake: IV 1200 / 1400 100 / 100 Piperacillin/Tazobactam 4.5 gm 200 / 200 100 / 100 In 100 ml @ 25 mls/hr IV Q8H [facility] Rx#:[id number] Sodium Chloride 0.9% 1,000 ml @ 1000 / 1000 60 mls/hr IV .[id number] Rx#: [id number] Oral 250 / 1000 400 / 1000 550 / 550 Output: Urine 100 / 1100 475 / 1100 Other: Weight 94.3 kg Weight Measurement Method Built in [facility] Diagnostic Findings Telemetry reviewed: NSR at 70's; No arrhythmias or symptomatic bradycardia Medications Administered Current Inpatient Medications Acetaminophen (Acetaminophen 325 Mg Tab) 650 mg PO Q4H PRN PRN Reason: Pain or Fever Stop: 04/10/24 14:08 Last Admin: 03/13/24 07:58 Dose: 650 mg Acyclovir (Acyclovir 400 Mg Tab) 400 mg PO BID [facility] Stop: 04/10/24 20:59 Last Admin: 03/13/24 08:01 Dose: 400 mg Clopidogrel Bisulfate (Clopidogrel Bisulfate 75 Mg Tab) 75 mg PO DAILY ANTONI Stop: 04/11/24 08:59 Last Admin: 03/13/24 08:01 Dose: 75 mg Diphenhydramine HCl (Diphenhydramine Capsule 25 Mg Cap) 25 mg PO HS PRN PRN Reason: Sleep Stop: 04/10/24 19:11 Enoxaparin Sodium (Enoxaparin Inj 30 Mg/0.3 Ml Syr) 30 mg SQ QAM [facility] Stop: 04/12/24 08:59 Last Admin: 03/13/24 08:06 Dose: 30 mg Folic Acid (Folic Acid 400 Mcg Tab) 400 mcg PO QAM ANTONI Stop: 04/11/24 08:59 Last Admin: 03/13/24 08:06 Dose: 400 mcg Daptomycin 475 mg/ Syringe 9.5 mls @ 4.75 mls/min IV Q24H [facility]; Protocol Stop: 03/13/24 14:59 Last Admin: 03/12/24 15:36 Dose: 4.75 mls/min Piperacillin Sod/Tazobactam Sod (Zosyn) 4.5 gm in 100 mls @ 25 mls/hr IV Q8H [facility]; Protocol Stop: 03/13/24 22:59 Last Admin: 03/13/24 11:58 Dose: 25 mls/hr Isosorbide Mononitrate (Isosorbide [place] Extended Rel 30 Mg Tabcr) 30 mg PO DAILY ANTONI Stop: 04/11/24 08:59 Last Admin: 03/13/24 08:01 Dose: 30 mg Lactobacillus Acidophilus (Advanced Probiotic 625 Mg Capsule) 1,250 mg PO DAILY [facility] Stop: 04/10/24 14:08 Last Admin: 03/13/24 08:07 Dose: 1,250 mg Latanoprost (Latanoprost 0.005% Op Soln 2.5 Ml Btl) 1 drops OPB PM [facility] Stop: 04/10/24 20:59 Last Admin: 03/12/24 20:18 Dose: 1 drops Magnesium Chloride (Magnesium Chloride W/Calcium 64mg Delayed Rel Tab) 64 mg PO BID ANTONI Stop: 04/11/24 20:59 Last Admin: 03/13/24 08:05 Dose: 64 mg Magnesium Hydroxide (Magnesium Hydroxide Susp 30 Ml Udc) 30 ml PO Q12H PRN PRN Reason: Constipation Stop: 04/10/24 14:08 Metoprolol Succinate (Metoprolol Succ 25mg Ext Rel Tab) 25 mg PO BID ANTONI Stop: 04/10/24 20:59 Last Admin: 03/13/24 08:10 Dose: 25 mg Multivitamins (Multivitamin Tab) 1 tab PO DAILY ANTONI Stop: 04/11/24 08:59 Last Admin: 03/13/24 08:02 Dose: 1 tab Ondansetron HCl (Ondansetron Inj 2 Mg/Ml 2 Ml Vial) 4 mg IV Q6H PRN PRN Reason: Nausea Stop: 04/10/24 14:08 Last Admin: 03/12/24 00:04 Dose: 4 mg Oxycodone HCl (Oxycodone Hcl Ir 5 Mg Tab (Immediate Release)) 5 mg PO Q4H PRN PRN Reason: Pain Stop: 03/25/24 23:39 Last Admin: 03/12/24 17:30 Dose: 5 mg Pantoprazole Sodium (Pantoprazole 40 Mg Tab) 40 mg PO QAM ANTONI Stop: 04/11/24 08:59 Last Admin: 03/13/24 08:01 Dose: 40 mg Polyethylene Glycol (Polyethylene (Miralax) 17 Gm Pack) 17 gm PO DAILY PRN PRN Reason: Constipation Stop: 04/10/24 14:08 Posaconazole (Posaconazole) 3 each PO DAILY ANTONI Stop: 04/11/24 16:14 Last Admin: 03/13/24 08:07 Dose: 3 each Thiamine HCl (Thiamine Hcl 100 Mg Tab) 100 mg PO QAM ANTONI Stop: 04/11/24 08:59 Last Admin: 03/13/24 08:01 Dose: 100 mg Venlafaxine HCl (Venlafaxine Hcl Xr 150 Mg Capxr) 150 mg PO DAILY ANTONI Stop: 04/11/24 08:59 Last Admin: 11/02/24 08:02 Dose: 150 mg (3) CAD (coronary artery disease) Associated angina: without angina Coronary Disease-Associated Artery/Lesion type: [place] artery [place] vs. transplanted heart: [place] heart Qualified Code(s): I25.10 - Atherosclerotic heart disease of [place] coronary artery without angina pectoris
[2024-03-14 06:22] LABS: Babesia microti DNA Not Detected (Not Detected)
[2024-03-14 07:09] LABS: Hematocrit (blood only) 21.3 % (42.0-52.0); Hemoglobin 7.4 g/dl (14.0-18.0); Mean Corpuscular Hemoglobin 37.2 pg (25.0-34.0); Mean Corpuscular Hgb Conc 34.7 g/dL (32.0-36.0); Mean Platelet Volume 12.5 fL (9.4-12.4); Nucleated RBC # (auto) 0.03 K/uL (0.00-0.12); Platelet Count 135 K/uL (130-400); RDW Standard Deviation 78.5 fL (36.4-46.3); Red Blood Count 1.99 M/uL (4.70-6.10); White Blood Count 3.04 K/ul (4.8-10.8)
[2024-03-14 07:19] LABS: Calcium 8.4 mg/dl (8.6-10.3); Creatinine Clr Calc Pharmacy 69.8 ml/min; Magnesium 1.9 mg/dl (1.7-2.4); Potassium 4.1 mmol/L (3.5-5.1)
[2024-03-14] MEDS: PIPERACILLIN/TAZOBACTAM 4.5 GM/100 ML BAG IV STA (08:16)
[2024-03-14] MEDS: DAPTOmycin 325 MG in SYRINGE 0 ML IV SCH (09:48)
[2024-03-14] MEDS: PIPERACILLIN/TAZOBACTAM 4.5 GM/100 ML BAG IV SCH (12:49)
--- NOTE | 2024-03-14 12:52 | Cardiology Progress Note ---
Date of Service March 14, 2024 Assessment & Plan (1) Infection of pacemaker pocket: (2) Myelodysplastic syndrome: (3) CAD (coronary artery disease): Plan: * (4) PSVT (paroxysmal supraventricular tachycardia): (5) Syncope and collapse: Plan 03/12 and 03/13 s/p pacemaker generator and lead extraction, pocket washout , wound vac 03/12/24 * Patient is immunosuppressed and is on chronic acyclovir, posaconazole, and levofloxacin therapy * Blood cultures x 2 and wound cultures obtained - prelim blood cultures negative * ID consulted * Transthoracic echocardiogram reveals normal biventricular systolic function, no evidence of vegetation within the scope of limitation for this imaging modality. * Agree with antibiotics including daptomycin and Zosyn. Likely will need extended IV antibiotics (6 weeks). Per ID if blood cultures remain negative, possibly only short course of antibiotics indicated. * Continue acetaminophen for fever. * Refer EP note for instructions regarding wound care * Currently SR in the 70s noted without recurrent tachycardia or bradycardia * Future considerations include Micra wireless pacemaker placement after infection resolved the patient has completed a sufficient course of anti biotics. Given his high risk features and immunosuppression however even this may pose unacceptable risk of reinfection. * Continue low dose metoprolol succinate 25 mg BID for now * Immunocompromised as stated. Outpatient acyclovir continued. * Continue clopidogrel * Rosuvastatin on hold given treatment with daptomycin 03/14 Chest and wound cultures and blood cultures remain negative Continue IV antibiotics. Still with wound vac and erythema of the chest wall surrounding the wound vac. Appreciate ID recommendations Maintaining NSR. continue metoprolol 25 mg BID. No symptomatic bradycardic ev ents since pacer removed. Monitor. Continue plavix. Continue low dose lovenox for DVT proph. Platelet count stable. Case discussed with Dr. Hughes I spent a total of 30 minutes on the date of service in preparation, delivery, and documentation of the care provided to this patient, excluding any time spent in the performance of separately billed services. Ariadne Lilly PA-C Department of Cardiology, [facility] This chart was completed in part utilizing Speech Voice Recognition Software. Grammatical errors, random word insertions, pronoun errors, and incomplete sentences are an occasional consequence of this system due to software limitations, ambient noise, and hardware issues. Any formal questions or concerns about the content, text, or information contained within the body of this dictation should be directly addressed to the provider for clarification. Admission and Anticipated Discharge Date Admission Date: March 11, 2024 Supervising Physician Co-Signing Physician Notes I have reviewed the advanced practitioner's documentation on the date of service referenced in note, and I agree with, and take responsibility for the plan of care. 73-year-old male with history of tachybradycardia syndrome underwent pacemaker placement on March 03, 2024, coronary artery disease with prior CABG x 3 and PCI, hypertension, dyslipidemia, immunosuppressed myelodysplastic syndrome with the Chemo-Port on chemotherapy supposed to get his next chemotherapy cycle next week presents with pacemaker site infection. He underwent pacemaker explant on March 12 has a wound VAC in place. Assessment and plan Pacemaker pocket infection wound VAC still draining, no further fevers cultures have been negative until nowContinue with antibiotics Myelodysplastic syndrome immuno suppressed Tachybradycardia syndrome Syncope secondary to tachybradycardia syndrome Paroxysmal supraventricular tachycardia I spent a total of [15] minutes coordinating, documenting, and providing care for this patient excluding time spent in the performance of separately billed services or time spent by another provider. Subjective Patient resting in chair. Feeling well. Fevers improved today. No chills per patient. Soreness around wound vac improving. Blood cultures, wound cultures remain negative. No bradycardic events on telemetry. He denies chest pain, SOB, dizziness, palpitations. Review of Systems Review of Systems: All systems reviewed & are unremarkable except as noted in HPI & below Physical Exam Constitutional: WD/WN, vitals as above well developed; no acute distress Neck: trachea midline, no thyromegaly Respiratory: normal respiratory effort, lungs clear to auscultation Cardiovascular: Rate/Rhythm: regular rate and regular rhythm Heart Sounds: no murmur Vessels: no JVD Extremities: no edema Chest (Breasts): Additional Comments: wound vac in place left upper chest with erythema surrounding wound vac Gastrointestinal (Abdomen): normal bowel sounds, soft, nontender, no hepatosplenomegaly Skin: no rashes, warm and dry Results & Data Vital Signs (Past 12 Hours) Vital Signs Temp Pulse Pulse Resp BP Pulse Ox O2 Del Method 03/14/24 12:11 36.8 C 63 18 113/54 L 98 Room Air 03/14/24 10:03 Room Air 03/14/24 08:03 87 03/14/24 07:23 37.4 C 77 18 128/58 L 95 Room Air 03/14/24 04:14 36.6 C 68 17 137/58 L 98 Room Air Laboratory Results CBC 03/14/24 Range/Units 05:49 WBC 3.04 L (4.8-10.8) K/ul RBC 1.99 L (4.70-6.10) M/uL Hgb 7.4 L (14.0-18.0) g/dl Hct 21.3 L (42.0-52.0) % Plt Count 135 (130-400) K/uL Comprehensive Metabolic Panel 03/14/24 Range/Units 05:49 Sodium 130 L (136-145) mmol/L Potassium 4.1 D (3.5-5.1) mmol/L Chloride 98 (98-107) mmol/L Carbon Dioxide 25 (21-32) mmol/L BUN 21 (6-23) mg/dl Creatinine 1.05 (0.6-1.4) mg/dl Glucose 106 H (70-99(Fasting)) mg/dl Calcium 8.4 L (8.6-10.3) mg/dl Intake and Output 03/13/24 03/14/24 03/14/24 23:59 06:59 14:59 Intake Total 100 / 100 Output Total 175 / 175 Balance -75 / -75 Intake: IV 100 / 100 Piperacillin/Tazobactam 4.5 gm 100 / 100 In 100 ml @ 200 mls/hr IV NOW STA Rx#:[id number] Output: Urine 175 / 175 Other: Weight Diagnostic Findings Telemetry reviewed: NSR in the 60-80's. No arrhythmias or symptomatic bradycardia Medications Administered Current Inpatient Medications Acetaminophen (Acetaminophen 325 Mg Tab) 650 mg PO Q4H PRN PRN Reason: Pain or Fever Stop: 04/10/24 14:08 Last Admin: 03/14/24 00:02 Dose: 650 mg Acyclovir (Acyclovir 400 Mg Tab) 400 mg PO BID [facility] Stop: 04/10/24 20:59 Last Admin: 03/14/24 08:17 Dose: 400 mg Clopidogrel Bisulfate (Clopidogrel Bisulfate 75 Mg Tab) 75 mg PO DAILY ANTONI Stop: 04/11/24 08:59 Last Admin: 03/14/24 08:17 Dose: 75 mg Diphenhydramine HCl (Diphenhydramine Capsule 25 Mg Cap) 25 mg PO HS PRN PRN Reason: Sleep Stop: 04/10/24 19:11 Enoxaparin Sodium (Enoxaparin Inj 30 Mg/0.3 Ml Syr) 30 mg SQ QAM [facility]TONI Stop: 04/12/24 08:59 Last Admin: 03/14/24 08:18 Dose: 30 mg Folic Acid (Folic Acid 400 Mcg Tab) 400 mcg PO QAM ANTONI Stop: 04/11/24 08:59 Last Admin: 03/14/24 08:17 Dose: 400 mcg Piperacillin Sod/Tazobactam Sod (Zosyn) 4.5 gm in 100 mls @ 25 mls/hr IV Q8H [facility]; Protocol Stop: 03/21/24 11:59 Last Admin: 03/14/24 12:49 Dose: 25 mls/hr Daptomycin 325 mg/ Syringe 6.5 mls @ 3.25 mls/min IV Q24H [facility]; Protocol Stop: 03/21/24 08:59 Last Admin: 03/14/24 09:48 Dose: 3.25 mls/min Isosorbide Mononitrate (Isosorbide [place] Extended Rel 30 Mg Tabcr) 30 mg PO DAILY ANTONI Stop: 04/11/24 08:59 Last Admin: 03/14/24 08:17 Dose: 30 mg Lactobacillus Acidophilus (Advanced Probiotic 625 Mg Capsule) 1,250 mg PO DAILY [facility] Stop: 04/10/24 14:08 Last Admin: 03/14/24 08:18 Dose: 1,250 mg Latanoprost (Latanoprost 0.005% Op Soln 2.5 Ml Btl) 1 drops OPB PM ANTONI Stop: 04/10/24 20:59 Last Admin: 03/13/24 20:11 Dose: 1 drops Magnesium Chloride (Magnesium Chloride W/Calcium 64mg Delayed Rel Tab) 64 mg PO BID AN[facility]I Stop: 04/11/24 20:59 Last Admin: 03/14/24 08:17 Dose: 64 mg Magnesium Hydroxide (Magnesium Hydroxide Susp 30 Ml Udc) 30 ml PO Q12H PRN PRN Reason: Constipation Stop: 04/10/24 14:08 Metoprolol Succinate (Metoprolol Succ 25mg Ext Rel Tab) 25 mg PO BID AN[facility]I Stop: 04/10/24 20:59 Last Admin: 03/14/24 08:17 Dose: 25 mg Multivitamins (Multivitamin Tab) 1 tab PO DAILY ANTONI Stop: 04/11/24 08:59 Last Admin: 03/14/24 08:17 Dose: 1 tab Ondansetron HCl (Ondansetron Inj 2 Mg/Ml 2 Ml Vial) 4 mg IV Q6H PRN PRN Reason: Nausea Stop: 04/10/24 14:08 Last Admin: 03/12/24 00:04 Dose: 4 mg Oxycodone HCl (Oxycodone Hcl Ir 5 Mg Tab (Immediate Release)) 5 mg PO Q4H PRN PRN Reason: Pain Stop: 03/25/24 23:39 Last Admin: 03/13/24 21:41 Dose: 5 mg Pantoprazole Sodium (Pantoprazole 40 Mg Tab) 40 mg PO QAM [facility] Stop: 04/11/24 08:59 Last Admin: 03/14/24 08:17 Dose: 40 mg Polyethylene Glycol (Polyethylene (Miralax) 17 Gm Pack) 17 gm PO DAILY PRN PRN Reason: Constipation Stop: 04/10/24 14:08 Posaconazole (Posaconazole) 3 each PO DAILY ANTONI Stop: 04/11/24 16:14 Last Admin: 03/14/24 08:18 Dose: 3 each Thiamine HCl (Thiamine Hcl 100 Mg Tab) 100 mg PO QAM ANTONI Stop: 04/11/24 08:59 Last Admin: 03/14/24 08:17 Dose: 100 mg Venlafaxine HCl (Venlafaxine Hcl Xr 150 Mg Capxr) 150 mg PO DAILY ANTONI Stop: 04/11/24 08:59 Last Admin: 03/14/24 08:17 Dose: 150 mg (3) CAD (coronary artery disease) Associated angina: without angina Coronary Disease-Associated Artery/Lesion type: [place] artery [place] vs. transplanted heart: [place] heart Qualified Code(s): I25.10 - Atherosclerotic heart disease of [place] coronary artery without angina pectoris
--- NOTE | 2024-03-14 13:51 | Hospitalist Progress Note ---
Date of Service March 14, 2024 Assessment & Plan (1) Illness: (2) Acute on chronic anemia: Plan Mikie Leon (Ken) is a 73y/o M with PMHx significant for CAD s/p CABG x 3 [2009], atrial fibrillation [not currently on anticoagulation therapy], HTN, HLD, PVCs, complete heart block s/p dual-chamber pacemaker placement [02/2024], grade II diastolic dysfunction, mild mitral regurgitation, GERD, myelodysplastic syndrome [currently undergoing chemotherapy], refractory cytopenia with multilineage dysplasia, macrocytic anemia [baseline Hgb ~9-10], neutropenia, history of alcohol use disorder and depression/anxiety who presented to the ED for evaluation of multiple constitutional symptoms. Patient was referred to the ED today by Dr. Saurabh Pisano [Hematology/Oncology] after being seen at [facility]. Patient was notably feverish in the office with a temperature of 101.8F. He was also complaining of some shortness of breath, generalized malaise, lightheadedness/dizziness and difficulty with urination. Dr. Pisano was concerned that the patient may have developed an infection and therefore sent him to the ED for further evaluation. Patient is currently undergoing chemotherapy [Vidaza] for management of myelodysplastic syndrome. Pacemaker site Infection S/P pacemaker generator and lead extraction, pocket washout and wound VAC placement on 03/12/[address] Pryor -CXR:No acute cardiopulmonary findings. No change in appearance of the chest. -ECHO: Mild concentric LVH. Left ventricle wall motion is normal. EF 55 to 60%. Pacemaker leads were visualized in the right atrium and right ventricle. No evidence of vegetation limitation of this imaging modality. -Blood culture negative to date -Wound culture no growth to date Appreciate cardiology input Continue daptomycin, Zosyn Appreciate ID input Pain control Will need final recommendations from ID based on cultures Hypokalemia Replete and monitor Acute on Chronic Anemia: Pancytopenia S/P PRBCs Monitor CBC closely Suspected transfusion reaction Less likely--fever likely due to pacemaker site infection Workup for transfusion reaction reviewed Acute kidney injury Cr back to baseline Monitor renal function Avoid nephrotoxic agents as able Chronic hyponatremia Monitor sodium closely Sodium 130 today Chronic alcohol use States his last alcohol drink was 10 to 12 days ago Counseled to quit drinking Hypomagnesemia Replete electrolytes as needed Monitor Myelodysplastic Syndrome: Immunocompromised state Patient follows with Dr. Saurabh Pisano Currently undergoing chemotherapy with Vidaza. Receiving biweekly Aranesp injections and weekly G-CSF injection since September 2023. Hold levofloxacin for now Continue acyclovir, posaconazole H/O recurrent syncope with recurrent tachycardia, bradycardia in the past H/O paroxysmal supraventricular tachycardia May need Micra wireless pacemaker placement once infection resolves --Continue metoprolol succinate 25 mg twice a day Tobacco Use Disorder: Smokes ~0.5 pack/day. Smoking cessation encouraged Other Chronic Medical Conditions: CAD S/P CABG Anxiety/depression GERD HTN Prediabetes Continue Plavix, isosorbide, metoprolol, Protonix, thiamine, folic acid, venlafaxine DVT Px: Lovenox SQ Code Status: FULL CODE Admission and Anticipated Discharge Date Admission Date: March 11, 2024 Subjective Patient is seen and examined at bedside Transient delirium associated with chills and nausea this morning Feels much better during my encounter Pain at the site of chest wound much improved Denies any dyspnea, dizziness, nausea, vomiting, abdominal pain Wound, blood cultures remain negative Review of Systems Review of Systems: All systems reviewed & are unremarkable except as noted in Subjective Physical Exam Physical Exam: Physical Exam: Vitals signs as noted above General Appearance: ill-appearing, no apparent distress Head: normocephalic, Atraumatic Eyes: normal inspection, EOMI Neck: supple, Trachea midline Respiratory/Chest: Normal breath sounds, CTA, left chest wound, wound VAC, R Chemo-Port, no accessory muscle use Cardiovascular: S1, S2, No murmur Abdomen/GI:Soft, Non tender, Bowel sounds present Extremities/Musculoskeletal:normal inspection, no edema Neurologic/Psych:AAOX3, grossly no focal neurological deficits Skin: normal color, warm Results & Data Results & Data Vital Signs (Past 12 Hours) Vital Signs Temp Pulse Pulse Resp BP Pulse Ox O2 Del Method 03/14/24 12:11 36.8 C 63 18 113/54 L 98 Room Air 03/14/24 10:03 Room Air 03/14/24 08:03 87 03/14/24 07:23 37.4 C 77 18 128/58 L 95 Room Air 03/14/24 04:14 36.6 C 68 17 137/58 L 98 Room Air Laboratory Results Short CBC 03/14/24 Range/Units 05:49 WBC 3.04 L (4.8-10.8) K/ul Hgb 7.4 L (14.0-18.0) g/dl Hct 21.3 L (42.0-52.0) % Plt Count 135 (130-400) K/uL [facility] 03/14/24 05:49 Sodium 130 L Potassium 4.1 D Chloride 98 Carbon Dioxide 25 BUN 21 Creatinine 1.05 Glucose 106 H Calcium 8.4 L
[2024-03-15 07:16] LABS: Hematocrit (blood only) 20.3 % (42.0-52.0); Hemoglobin 6.9 g/dl (14.0-18.0); Mean Corpuscular Hemoglobin 36.5 pg (25.0-34.0); Mean Corpuscular Volume 107.4 fL (80.0-100.0); Mean Platelet Volume 12.5 fL (9.4-12.4); Nucleated RBC # (auto) 0.03 K/uL (0.00-0.12); Nucleated RBC % (auto) 1.3 %; Platelet Count 131 K/uL (130-400); RDW Standard Deviation 78.6 fL (36.4-46.3); Red Blood Count 1.89 M/uL (4.70-6.10); White Blood Count 2.37 K/ul (4.8-10.8)
[2024-03-15] MEDS ORDERED: SODIUM CHLORIDE 0.9% 100 ML IV PRN (07:29)
[2024-03-15] MEDS ORDERED: SODIUM CHLORIDE 0.9% 50 ML IV PRN (07:29)
[2024-03-15 07:33] LABS: BUN Creatinine Ratio 20.4 (10-20); Calcium 8.6 mg/dl (8.6-10.3); Creatinine Clr Calc Pharmacy 71.4 ml/min; Potassium 4.2 mmol/L (3.5-5.1)
[2024-03-15] MEDS: diphenhydrAMINE HCL 25 MG/10 ML UDC PO ONE (08:37)
--- NOTE | 2024-03-15 08:57 | Cardiology Progress Note ---
Date of Service March 15, 2024 Assessment & Plan (1) Infection of pacemaker pocket: (2) Myelodysplastic syndrome: (3) CAD (coronary artery disease): Plan: * (4) PSVT (paroxysmal supraventricular tachycardia): (5) Syncope and collapse: Plan 03/12 and 03/13 s/p pacemaker generator and lead extraction, pocket washout , wound vac 03/12/24 * Patient is immunosuppressed and is on chronic acyclovir, posaconazole, and levofloxacin therapy * Blood cultures x 2 and wound cultures obtained - prelim blood cultures negative * ID consulted * Transthoracic echocardiogram reveals normal biventricular systolic function, no evidence of vegetation within the scope of limitation for this imaging modality. * Agree with antibiotics including daptomycin and Zosyn. Likely will need extended IV antibiotics (6 weeks). Per ID if blood cultures remain negative, possibly only short course of antibiotics indicated. * Continue acetaminophen for fever. * Refer EP note for instructions regarding wound care * Currently SR in the 70s noted without recurrent tachycardia or bradycardia * Future considerations include Micra wireless pacemaker placement after infection resolved the patient has completed a sufficient course of anti biotics. Given his high risk features and immunosuppression however even this may pose unacceptable risk of reinfection. * Continue low dose metoprolol succinate 25 mg BID for now * Immunocompromised as stated. Outpatient acyclovir continued. * Continue clopidogrel * Rosuvastatin on hold given treatment with daptomycin 03/14 Chest and wound cultures and blood cultures remain negative Continue IV antibiotics. Still with wound vac and erythema of the chest wall surrounding the wound vac. Appreciate ID recommendations Maintaining NSR. continue metoprolol 25 mg BID. No symptomatic bradycardic ev ents since pacer removed. Monitor. Continue plavix. Continue low dose lovenox for DVT proph. Platelet count stable. 05/15/2023: -chest and wound cultures remain negative. Wound vac in place with erythema extending approx 1/2 inch past edge of Opsite. -Continue on IV antibiotics as per management of Primary team, appreciate ID recommendations -Review of telemetry demonstrates predominately SR, bradycardiac with rates in the 50's during sleep. no pauses, or high grade heart block appreciated. -Continue Metoprolol 25mg Twice daily. Continue to monitor closely on Telemetry -Continue Plavix -Continue SQ Lovenox for DVT prophylaxis Case has been discussed with Dr. Salcedo. Further recommendations regarding plan of care as per his assessment. I spent a total of 30 minutes on the date of service in preparation, delivery, documentation of the care provided to the patient excluding any time spent in the performance of separately billed services. JODEE Lopez [facility] Cardiology [facility] Admission and Anticipated Discharge Date Admission Date: March 11, 2024 Supervising Physician Co-Signing Physician Notes I have personally performed a history and physical examination on the patient. I have reviewed the advance practitioner's documentation, and I agree with, and take responsibility for the plan of care. 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 Pacemaker explanted March 12 with implantation of wound vac. Continue antibiotics as ordered. Wound and blood cultures without growth to date. Monitor telemetry for any significant bradycardia, pauses, or heart block. Continue metoprolol and clopidogrel as ordered. Per Salcedo DO, [facility] Subjective 03/15/2024: Patient seen and examined in follow up today. Feeling better. he states "this is a good day". Continues with ongoing pain/tenderness at the pacemaker site. Noted erythema extending approx 1/2 inch past the opsite. No discharge or drainage. Wound vac in place. No chest pain, pressure, no shortness of breath, no edema. Labs, vitals, diagnostics, telemetry and documentation reviewed. Telemetry reviewed showing SR with PVC's. occasional couplet, and triplet. Rates in the 50's during sleep. no profound bradycardia, sinus pause or high grade heart block appreciated. Review of Systems Review of Systems: All systems reviewed & are unremarkable except as noted in HPI & below Physical Exam Constitutional: well developed and well nourished; no acute distress Neck: normal visual inspection and trachea midline Cardiovascular: Rate/Rhythm: regular rate and regular rhythm Heart Sounds: normal S1 and normal S2; no murmur Vessels: dorsalis pedis pulses present; no JVD Extremities: no edema Skin: normal turgor and + wound (left upper chest wall wound vac in place. erythema noted around site. ) Psychiatric: A+Ox3, euthymic affect Results & Data Vital Signs (Past 12 Hours) Vital Signs Temp Pulse Pulse Resp BP Pulse Ox O2 Del Method 03/15/24 07:30 Room Air 03/15/24 07:22 36.7 C 61 18 120/55 L 97 Room Air 03/15/24 04:17 36.4 C L 52 L 16 100/65 98 Room Air 03/15/24 00:14 36.5 C 70 18 131/46 L 98 Room Air 03/15/24 00:00 66 Laboratory Results CBC 03/15/24 Range/Units 06:40 WBC 2.37 L (4.8-10.8) K/ul RBC 1.89 L (4.70-6.10) M/uL Hgb 6.9 L* (14.0-18.0) g/dl Hct 20.3 L* (42.0-52.0) % Plt Count 131 (130-400) K/uL Comprehensive Metabolic Panel 03/15/24 Range/Units 06:40 Sodium 133 L (136-145) mmol/L Potassium 4.2 (3.5-5.1) mmol/L Chloride 100 (98-107) mmol/L Carbon Dioxide 28 (21-32) mmol/L BUN 21 (6-23) mg/dl Creatinine 1.03 (0.6-1.4) mg/dl Glucose 119 H (70-99(Fasting)) mg/dl Calcium 8.6 (8.6-10.3) mg/dl Intake and Output 03/14/24 03/15/24 03/15/24 22:59 06:59 14:59 Intake Total 950 / 1150 100 / 1150 100 / 100 Output Total 710 / 1185 300 / 1185 Balance 240 / -35 -200 / -35 100 / 100 Intake: IV 100 / 300 100 / 300 100 / 100 Piperacillin/Tazobactam 4.5 gm 100 / 200 100 / 200 100 / 100 In 100 ml @ 25 mls/hr IV Q8H [facility] Rx#:[id number] Oral 850 / 850 Intake (Blood Product) Amt 0 / 0 Packed Cells, Leukoreduced 0 / 0 Unit [id number] Output: Urine 710 / 1185 300 / 1185 Other: Weight 94.9 kg (3) CAD (coronary artery disease) Associated angina: without angina Coronary Disease-Associated Artery/Lesion type: [place] artery [place] vs. transplanted heart: [place] heart Qualified Code(s): I25.10 - Atherosclerotic heart disease of [place] coronary artery without angina pectoris
[2024-03-15 14:53] LABS: Hematocrit (blood only) 22.4 % (42.0-52.0); Hemoglobin 7.7 g/dl (14.0-18.0)
--- NOTE | 2024-03-15 15:06 | Hospitalist Progress Note ---
Date of Service March 15, 2024 Assessment & Plan (1) Illness: (2) Acute on chronic anemia: Plan Mikie Leon (Ken) is a 73y/o M with PMHx significant for CAD s/p CABG x 3 [2009], atrial fibrillation [not currently on anticoagulation therapy], HTN, HLD, PVCs, complete heart block s/p dual-chamber pacemaker placement [02/2024], grade II diastolic dysfunction, mild mitral regurgitation, GERD, myelodysplastic syndrome [currently undergoing chemotherapy], refractory cytopenia with multilineage dysplasia, macrocytic anemia [baseline Hgb ~9-10], neutropenia, history of alcohol use disorder and depression/anxiety who presented to the ED for evaluation of multiple constitutional symptoms. Patient was referred to the ED today by Dr. Saurabh Pisano [Hematology/Oncology] after being seen at [facility]. Patient was notably feverish in the office with a temperature of 101.8F. He was also complaining of some shortness of breath, generalized malaise, lightheadedness/dizziness and difficulty with urination. Dr. Pisano was concerned that the patient may have developed an infection and therefore sent him to the ED for further evaluation. Patient is currently undergoing chemotherapy [Vidaza] for management of myelodysplastic syndrome. Pacemaker site Infection S/P pacemaker generator and lead extraction, pocket washout and wound VAC placement on 03/12/[address] Pryor -CXR:No acute cardiopulmonary findings. No change in appearance of the chest. -ECHO: Mild concentric LVH. Left ventricle wall motion is normal. EF 55 to 60%. Pacemaker leads were visualized in the right atrium and right ventricle. No evidence of vegetation limitation of this imaging modality. -Blood culture negative to date -Wound culture no growth to date Appreciate cardiology input Continue daptomycin, Zosyn Appreciate ID input: Discussed with Dr. Vasquez on 03/15/2024: If cultures remain negative, plan to downgrade IV antibiotics to doxycycline 100 mg BID, Keflex 500 mg QID to complete 14-day including inpatient antibiotic days Likely transition to p.o. antibiotics tomorrow Pain control Hypokalemia Replete and monitor Acute on Chronic Anemia: Pancytopenia S/P PRBCs Monitor CBC closely Will recheck ANC tomorrow Hemoglobin 6.9 today, plan to transfuse 1 unit PRBC today Suspected transfusion reaction Less likely--fever likely due to pacemaker site infection Workup for transfusion reaction reviewed Acute kidney injury Cr back to baseline Monitor renal function Avoid nephrotoxic agents as able Chronic hyponatremia Monitor sodium closely Sodium 133 today Chronic alcohol use States his last alcohol drink was 10 to 12 days ago Counseled to quit drinking Hypomagnesemia Replete electrolytes as needed Monitor Myelodysplastic Syndrome: Immunocompromised state Patient follows with Dr. Saurabh Pisano Currently undergoing chemotherapy with Vidaza. Receiving biweekly Aranesp injections and weekly G-CSF injection since September 2023. Hold levofloxacin for now Continue acyclovir, posaconazole H/O recurrent syncope with recurrent tachycardia, bradycardia in the past H/O paroxysmal supraventricular tachycardia May need Micra wireless pacemaker placement once infection resolves --Continue metoprolol succinate 25 mg twice a day Tobacco Use Disorder: Smokes ~0.5 pack/day. Smoking cessation encouraged Other Chronic Medical Conditions: CAD S/P CABG Anxiety/depression GERD HTN Prediabetes Continue Plavix, isosorbide, metoprolol, Protonix, thiamine, folic acid, venlafaxine DVT Px: Lovenox SQ Code Status: FULL CODE Admission and Anticipated Discharge Date Admission Date: March 11, 2024 Subjective Patient is seen and examined at bedside No recurrence of delirium Continues to have pain/tenderness at pacemaker wound site No other complaints today Discussed with infectious disease today Denies any dyspnea, dizziness, nausea, vomiting, abdominal pain Review of Systems Review of Systems: All systems reviewed & are unremarkable except as noted in Subjective Physical Exam Physical Exam: Physical Exam: Vitals signs as noted above General Appearance: ill-appearing, no apparent distress Head: normocephalic, Atraumatic Eyes: normal inspection, EOMI Neck: supple, Trachea midline Respiratory/Chest: Normal breath sounds, CTA, left chest wound, wound VAC, R Chemo-Port, no accessory muscle use Cardiovascular: S1, S2, No murmur Abdomen/GI:Soft, Non tender, Bowel sounds present Extremities/Musculoskeletal:normal inspection, no edema Neurologic/Psych:AAOX3, grossly no focal neurological deficits Skin: normal color, warm Results & Data Results & Data Vital Signs (Past 12 Hours) Vital Signs Temp Pulse Pulse Resp BP BP Pulse Ox 03/15/24 12:46 36.7 C 60 16 133/76 97 03/15/24 11:57 36.6 C 76 18 137/78 98 03/15/24 11:43 36.6 C 68 18 137/60 97 03/15/24 10:43 36.4 C L 59 L 18 134/74 98 03/15/24 10:13 36.4 C L 56 L 18 128/68 98 03/15/24 09:58 36.4 C L 55 L 16 138/63 98 03/15/24 09:39 36.4 C L 57 L 16 128/71 98 03/15/24 07:30 03/15/24 07:22 36.7 C 61 18 120/55 L 97 03/15/24 04:17 36.4 C L 52 L 16 100/65 98 O2 Del Method O2 Flow Rate 03/15/24 12:46 0 03/15/24 11:57 03/15/24 11:43 03/15/24 10:43 03/15/24 10:13 03/15/24 09:58 03/15/24 09:39 03/15/24 07:30 Room Air 03/15/24 07:22 Room Air 03/15/24 04:17 Room Air Laboratory Results Short CBC 03/15/24 03/15/24 Range/Units 06:40 14:41 WBC 2.37 L (4.8-10.8) K/ul Hgb 6.9 L* 7.7 L (14.0-18.0) g/dl Hct 20.3 L* 22.4 L (42.0-52.0) % Plt Count 131 (130-400) K/uL BMP 03/15/24 06:40 Sodium 133 L Potassium 4.2 Chloride 100 Carbon Dioxide 28 BUN 21 Creatinine 1.03 Glucose 119 H Calcium 8.6
[2024-03-16 07:38] LABS: BUN Creatinine Ratio 21.3 (10-20); Calcium 8.7 mg/dl (8.6-10.3); Creatinine Clr Calc Pharmacy 77.8 ml/min; Potassium 4.2 mmol/L (3.5-5.1)
[2024-03-16 07:40] LABS: Hematocrit (blood only) 24.8 % (42.0-52.0); Hemoglobin 8.5 g/dl (14.0-18.0); Mean Corpuscular Hemoglobin 36.3 pg (25.0-34.0); Mean Corpuscular Hgb Conc 34.3 g/dL (32.0-36.0); Mean Platelet Volume 12.1 fL (9.4-12.4); Platelet Count 159 K/uL (130-400); RDW Coefficient of Variation 20.5 % (11.5-14.5); RDW Standard Deviation 78.1 fL (36.4-46.3); Red Blood Count 2.34 M/uL (4.70-6.10); White Blood Count 1.61 K/ul (4.8-10.8)
[2024-03-16 07:47] LABS: Basophils # (auto) 0.01 K/uL (0.00-0.20); Basophils % (auto) 0.6 %; Eosinophils # (auto) 0.02 K/uL (0.00-0.50); Eosinophils % (auto) 1.2 %; Immature Granulocytes # (auto) 0.01 K/uL (0.01-0.20); Immature Granulocytes % (auto) 0.6 %; Lymphocytes # (auto) 0.76 K/uL (1.20-3.40); Lymphocytes % (auto) 47.2 %; Monocytes # (auto) 0.18 K/uL (0.11-0.59); Monocytes % (auto) 11.2 %; Neutrophils # (auto) 0.63 K/uL (1.40-6.50); Neutrophils % (auto) 39.2 %
[2024-03-16 07:48] LABS: Anisocytosis Present; Ovalocytes 1+; Polychromasia 1+
--- NOTE | 2024-03-16 08:35 | Cardiology Progress Note ---
Date of Service March 16, 2024 Assessment & Plan (1) Infection of pacemaker pocket: (2) Myelodysplastic syndrome: (3) CAD (coronary artery disease): Plan: * (4) PSVT (paroxysmal supraventricular tachycardia): (5) Syncope and collapse: Plan 03/12 and 03/13 s/p pacemaker generator and lead extraction, pocket washout , wound vac 03/12/24 * Patient is immunosuppressed and is on chronic acyclovir, posaconazole, and levofloxacin therapy * Blood cultures x 2 and wound cultures obtained - prelim blood cultures negative * ID consulted * Transthoracic echocardiogram reveals normal biventricular systolic function, no evidence of vegetation within the scope of limitation for this imaging modality. * Agree with antibiotics including daptomycin and Zosyn. Likely will need extended IV antibiotics (6 weeks). Per ID if blood cultures remain negative, possibly only short course of antibiotics indicated. * Continue acetaminophen for fever. * Refer EP note for instructions regarding wound care * Currently SR in the 70s noted without recurrent tachycardia or bradycardia * Future considerations include Micra wireless pacemaker placement after infection resolved the patient has completed a sufficient course of anti biotics. Given his high risk features and immunosuppression however even this may pose unacceptable risk of reinfection. * Continue low dose metoprolol succinate 25 mg BID for now * Immunocompromised as stated. Outpatient acyclovir continued. * Continue clopidogrel * Rosuvastatin on hold given treatment with daptomycin 03/14 Chest and wound cultures and blood cultures remain negative Continue IV antibiotics. Still with wound vac and erythema of the chest wall surrounding the wound vac. Appreciate ID recommendations Maintaining NSR. continue metoprolol 25 mg BID. No symptomatic bradycardic ev ents since pacer removed. Monitor. Continue plavix. Continue low dose lovenox for DVT proph. Platelet count stable. 03/15/2024: -chest and wound cultures remain negative. Wound vac in place with erythema extending approx 1/2 inch past edge of Opsite. -Continue on IV antibiotics as per management of Primary team, appreciate ID recommendations -Review of telemetry demonstrates predominately SR, bradycardiac with rates in the 50's during sleep. no pauses, or high grade heart block appreciated. -Continue Metoprolol 25mg Twice daily. Continue to monitor closely on Telemetry -Continue Plavix -Continue SQ Lovenox for DVT prophylaxis 03/16/2024: -Wound and blood culture remain negative to date. -Continued IV antibiotics per primary team and ID -Wound vac as per plan, will have an updated assessment and image tomorrow for comparison with vac dsg change -Maintaining SR with SB during sleep, lowest HR 58bpm. Continue Amiodarone and Metoprolol at this time. No pauses or high grade heart block appreciated. Continue Plavix Case has been discussed with Dr. Salcedo. Further recommendations regarding plan of care as per his assessment. I spent a total of 30 minutes on the date of service in preparation, delivery, documentation of the care provided to the patient excluding any time spent in the performance of separately billed services. JODEE Lopez [facility] Admission and Anticipated Discharge Date Admission Date: March 11, 2024 Supervising Physician Co-Signing Physician Notes I have personally performed a history and physical examination on the patient. I have reviewed the advance practitioner's documentation, and I agree with, and take responsibility for the plan of care. 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 Pacemaker explanted March 12 with implantation of wound vac.Telemetry reveals sinus rhythm and sinus bradycardia. Blood and wound cultures without growth. Antibiotic management as per infectious disease. Monitor telemetry for any significant bradycardia, pauses, or heart block. Continue metoprolol and clopidogrel as ordered. Per Salcedo DO, [facility] Subjective 03/16/2024: Patient seen and examined in follow up today. Feeling fair. offers no cardiac concerns. He continues to endorse left chest wall wound site pain. Wound vac in place. Dressing change/exchange will be tomorrow. Labs, vitals, diagnostics, telemetry and documentation reviewed. Telemetry reviewed showing SB/SR lowest rate 58bpm. No pauses, or high grade heart block observed. Does continues with occasional PVC's, couplets and trigeminy. Review of Systems Review of Systems: All systems reviewed & are unremarkable except as noted in HPI & below Physical Exam Constitutional: well developed and well nourished; no acute distress Neck: normal visual inspection and trachea midline Cardiovascular: Rate/Rhythm: regular rate and regular rhythm Heart Sounds: normal S1 and normal S2; no murmur Vessels: dorsalis pedis pulses present; no JVD Extremities: no edema Skin: no rashes, warm and dry normal turgor and + wound (left upper chest wall wound vac in place. erythema reduced around site. ) Psychiatric: A+Ox3, euthymic affect Results & Data Vital Signs (Past 12 Hours) Vital Signs Temp Pulse Resp BP BP Pulse Ox O2 Del Method 03/16/24 07:29 36.7 C 56 L 18 127/56 L 97 Room Air 03/16/24 03:21 36.4 C L 61 18 137/82 98 Room Air 03/15/24 22:21 36.5 C 61 20 153/72 H 98 Room Air Laboratory Results CBC 03/15/24 03/16/24 Range/Units 14:41 07:07 WBC 1.61 L (4.8-10.8) K/ul RBC 2.34 L (4.70-6.10) M/uL Hgb 7.7 L 8.5 L (14.0-18.0) g/dl Hct 22.4 L 24.8 L (42.0-52.0) % Plt Count 159 (130-400) K/uL Neut # (Auto) 0.63 L* (1.40-6.50) K/uL Lymph # (Auto) 0.76 L (1.20-3.40) K/uL [place] # (Auto) 0.18 (0.11-0.59) K/uL Eos # (Auto) 0.02 (0.00-0.50) K/uL Baso # (Auto) 0.01 (0.00-0.20) K/uL Comprehensive Metabolic Panel 03/16/24 Range/Units 07:07 Sodium 132 L (136-145) mmol/L Potassium 4.2 (3.5-5.1) mmol/L Chloride 101 (98-107) mmol/L Carbon Dioxide 24 (21-32) mmol/L BUN 20 (6-23) mg/dl Creatinine 0.94 (0.6-1.4) mg/dl Glucose 113 H (70-99(Fasting)) mg/dl Calcium 8.7 (8.6-10.3) mg/dl Intake and Output 03/15/24 03/16/24 03/16/24 22:59 06:59 14:59 Intake Total 150 / 900 100 / 900 300 / 300 Output Total 250 / 1850 950 / 1850 201 / 201 Balance -100 / -950 -850 / -950 99 / 99 Intake: IV 100 / 300 100 / 300 100 / 100 Piperacillin/Tazobactam 4.5 gm 100 / 300 100 / 300 100 / 100 In 100 ml @ 25 mls/hr IV Q8H ANTONI Rx#:[id number] Oral 50 / 600 200 / 200 Output: Urine 250 / 1850 950 / 1850 200 / 200 # Bowel Movements Other: # Unmeasured Voids 1 Weight 94.9 kg 93.8 kg Weight Measurement Method Built in [facility] (3) CAD (coronary artery disease) Associated angina: without angina Coronary Disease-Associated Artery/Lesion type: [place] artery [place] vs. transplanted heart: [place] heart Qualified Code(s): I25.10 - Atherosclerotic heart disease of [place] coronary artery without angina pectoris
--- NOTE | 2024-03-16 14:29 | Hospitalist Progress Note ---
Date of Service March 16, 2024 Assessment & Plan (1) Illness: (2) Acute on chronic anemia: Plan Mikie Leon (Ken) is a 73y/o M with PMHx significant for CAD s/p CABG x 3 [2009], atrial fibrillation [not currently on anticoagulation therapy], HTN, HLD, PVCs, complete heart block s/p dual-chamber pacemaker placement [02/2024], grade II diastolic dysfunction, mild mitral regurgitation, GERD, myelodysplastic syndrome [currently undergoing chemotherapy], refractory cytopenia with multilineage dysplasia, macrocytic anemia [baseline Hgb ~9-10], neutropenia, history of alcohol use disorder and depression/anxiety who presented to the ED for evaluation of multiple constitutional symptoms. Patient was referred to the ED today by Dr. Saurabh Pisano [Hematology/Oncology] after being seen at [facility]. Patient was notably feverish in the office with a temperature of 101.8F. He was also complaining of some shortness of breath, generalized malaise, lightheadedness/dizziness and difficulty with urination. Dr. Pisano was concerned that the patient may have developed an infection and therefore sent him to the ED for further evaluation. Patient is currently undergoing chemotherapy [Vidaza] for management of myelodysplastic syndrome. Pacemaker site Infection S/P pacemaker generator and lead extraction, pocket washout and wound VAC placement on 03/12/[address] Pryor -CXR:No acute cardiopulmonary findings. No change in appearance of the chest. -ECHO: Mild concentric LVH. Left ventricle wall motion is normal. EF 55 to 60%. Pacemaker leads were visualized in the right atrium and right ventricle. No evidence of vegetation limitation of this imaging modality. -Blood culture negative to date -Wound culture no growth to date Appreciate cardiology input Continue daptomycin, Zosyn Appreciate ID input: Discussed with Dr. Vasquez on 03/15/2024: If cultures remain negative, plan to downgrade IV antibiotics to doxycycline 100 mg BID, Keflex 500 mg QID to complete 14-day including inpatient antibiotic days Likely transition to p.o. antibiotics on discharge Pain control Cardiology plans to reimage tomorrow to reassess wound Needs follow-up with cardiology/wound care on discharge Hypokalemia Replete and monitor Acute on Chronic Anemia: Pancytopenia S/P PRBCs Monitor CBC closely ANC [address] Saurabh Pisano today: Recommends to give Neupogen Monitor ANC Hemoglobin stable today Suspected transfusion reaction Less likely--fever likely due to pacemaker site infection Workup for transfusion reaction reviewed Acute kidney injury Cr back to baseline Monitor renal function Avoid nephrotoxic agents as able Chronic hyponatremia Monitor sodium closely Sodium 132 today Chronic alcohol use States his last alcohol drink was 10 to 12 days ago Counseled to quit drinking Hypomagnesemia Replete electrolytes as needed Monitor Myelodysplastic Syndrome: Immunocompromised state Patient follows with Dr. Saurabh Pisano Currently undergoing chemotherapy with Vidaza. Receiving biweekly Aranesp injections and weekly G-CSF injection since September 2023. Hold levofloxacin for now Continue acyclovir, posaconazole H/O recurrent syncope with recurrent tachycardia, bradycardia in the past H/O paroxysmal supraventricular tachycardia May need Micra wireless pacemaker placement once infection resolves --Continue metoprolol succinate 25 mg twice a day Tobacco Use Disorder: Smokes ~0.5 pack/day. Smoking cessation encouraged Other Chronic Medical Conditions: CAD S/P CABG Anxiety/depression GERD HTN Prediabetes Continue Plavix, isosorbide, metoprolol, Protonix, thiamine, folic acid, venlafaxine DVT Px: Lovenox SQ Code Status: FULL CODE Admission and Anticipated Discharge Date Admission Date: March 11, 2024 Subjective Patient is seen and examined at bedside Doing well today Still has pain at pacemaker wound site Discussed with cardiology today Denies any dyspnea, dizziness, nausea, vomiting, abdominal pain Also discussed with oncology today Review of Systems Review of Systems: All systems reviewed & are unremarkable except as noted in Subjective Physical Exam Physical Exam: Physical Exam: Vitals signs as noted above General Appearance: ill-appearing, no apparent distress Head: normocephalic, Atraumatic Eyes: normal inspection, EOMI Neck: supple, Trachea midline Respiratory/Chest: Normal breath sounds, CTA, left chest wound, wound VAC, R Chemo-Port, no accessory muscle use Cardiovascular: S1, S2, No murmur Abdomen/GI:Soft, Non tender, Bowel sounds present Extremities/Musculoskeletal:normal inspection, no edema Neurologic/Psych:AAOX3, grossly no focal neurological deficits Skin: normal color, warm Results & Data Results & Data Vital Signs (Past 12 Hours) Vital Signs Temp Pulse Resp BP Pulse Ox O2 Del Method 03/16/24 10:55 36.8 C 67 18 134/67 98 Room Air 03/16/24 07:29 36.7 C 56 L 18 127/56 L 97 Room Air 03/16/24 03:21 36.4 C L 61 18 137/82 98 Room Air Laboratory Results Short CBC 03/15/24 03/16/24 Range/Units 14:41 07:07 WBC 1.61 L (4.8-10.8) K/ul Hgb 7.7 L 8.5 L (14.0-18.0) g/dl Hct 22.4 L 24.8 L (42.0-52.0) % Plt Count 159 (130-400) K/uL BMP 03/16/24 07:07 Sodium 132 L Potassium 4.2 Chloride 101 Carbon Dioxide 24 BUN 20 Creatinine 0.94 Glucose 113 H Calcium 8.7
[2024-03-16] MEDS: FILGRASTIM 300 MCG/ML VIAL SQ ONE (15:08)
[2024-03-17 07:31] VITALS: RESP 14
[2024-03-17 07:48] LABS: BUN Creatinine Ratio 16.7 (10-20); Calcium 8.9 mg/dl (8.6-10.3); Creatinine Clr Calc Pharmacy 71.7 ml/min; Potassium 4.7 mmol/L (3.5-5.1)
[2024-03-17 08:03] LABS: Hematocrit (blood only) 23.1 % (42.0-52.0); Hemoglobin 8.2 g/dl (14.0-18.0); Mean Corpuscular Hemoglobin 37.1 pg (25.0-34.0); Mean Corpuscular Hgb Conc 35.5 g/dL (32.0-36.0); Mean Corpuscular Volume 104.5 fL (80.0-100.0); Mean Platelet Volume 11.9 fL (9.4-12.4); Nucleated RBC # (auto) 0.04 K/uL (0.00-0.12); Platelet Count 182 K/uL (130-400); RDW Coefficient of Variation 19.8 % (11.5-14.5); RDW Standard Deviation 73.9 fL (36.4-46.3); Red Blood Count 2.21 M/uL (4.70-6.10); White Blood Count 4.15 K/ul (4.8-10.8)
[2024-03-17 08:04] LABS: Anisocytosis Present; Basophils # (auto) 0.04 K/uL (0.00-0.20); Eosinophils # (auto) 0.04 K/uL (0.00-0.50); Immature Granulocytes # (auto) 0.06 K/uL (0.01-0.20); Immature Granulocytes % (auto) 1.4 %; Lymphocytes # (auto) 1.16 K/uL (1.20-3.40); Macrocytosis Present; Monocytes # (auto) 0.53 K/uL (0.11-0.59); Monocytes % (auto) 12.8 %; Neutrophils # (auto) 2.32 K/uL (1.40-6.50); Neutrophils % (auto) 55.8 %; Ovalocytes 1+; Polychromasia 1+
--- NOTE | 2024-03-17 08:42 | Cardiology Progress Note ---
Date of Service March 17, 2024 Assessment & Plan (1) Infection of pacemaker pocket: (2) Myelodysplastic syndrome: (3) CAD (coronary artery disease): Plan: * (4) PSVT (paroxysmal supraventricular tachycardia): (5) Syncope and collapse: Plan 03/12 and 03/13 s/p pacemaker generator and lead extraction, pocket washout , wound vac 03/12/24 * Patient is immunosuppressed and is on chronic acyclovir, posaconazole, and levofloxacin therapy * Blood cultures x 2 and wound cultures obtained - prelim blood cultures negative * ID consulted * Transthoracic echocardiogram reveals normal biventricular systolic function, no evidence of vegetation within the scope of limitation for this imaging modality. * Agree with antibiotics including daptomycin and Zosyn. Likely will need extended IV antibiotics (6 weeks). Per ID if blood cultures remain negative, possibly only short course of antibiotics indicated. * Continue acetaminophen for fever. * Refer EP note for instructions regarding wound care * Currently SR in the 70s noted without recurrent tachycardia or bradycardia * Future considerations include Micra wireless pacemaker placement after infection resolved the patient has completed a sufficient course of anti biotics. Given his high risk features and immunosuppression however even this may pose unacceptable risk of reinfection. * Continue low dose metoprolol succinate 25 mg BID for now * Immunocompromised as stated. Outpatient acyclovir continued. * Continue clopidogrel * Rosuvastatin on hold given treatment with daptomycin 03/14 Chest and wound cultures and blood cultures remain negative Continue IV antibiotics. Still with wound vac and erythema of the chest wall surrounding the wound vac. Appreciate ID recommendations Maintaining NSR. continue metoprolol 25 mg BID. No symptomatic bradycardic ev ents since pacer removed. Monitor. Continue plavix. Continue low dose lovenox for DVT proph. Platelet count stable. 03/15/2024: -chest and wound cultures remain negative. Wound vac in place with erythema extending approx 1/2 inch past edge of Opsite. -Continue on IV antibiotics as per management of Primary team, appreciate ID recommendations -Review of telemetry demonstrates predominately SR, bradycardiac with rates in the 50's during sleep. no pauses, or high grade heart block appreciated. -Continue Metoprolol 25mg Twice daily. Continue to monitor closely on Telemetry -Continue Plavix -Continue SQ Lovenox for DVT prophylaxis 03/16/2024: -Wound and blood culture remain negative to date. -Continued IV antibiotics per primary team and ID -Wound vac as per plan, will have an updated assessment and image tomorrow for comparison with vac dsg change -Maintaining SR with SB during sleep, lowest HR 58bpm. Continue Metoprolol at this time. No pauses or high grade heart block appreciated. Continue Plavix 03/17/2024: -Stable from a cardiac perspective at this time. Review of telemetry demonstrates that patient is maintaining SB/SR rates 55-60bpm on monitor. No pauses and no high grade heart block appreciated. -Continue Metoprolol -Continue plavix. -Primary team to make arranges for patient to have home health, routine wound vac changes/monitoring. Antibiotics as per primary team and ID. -Patient will need close OP cardiology follow up upon discharge from the hospital. TE sent. Case has been discussed with Dr. Salcedo. Further recommendations regarding plan of care as per his assessment. I spent a total of 30 minutes on the date of service in preparation, delivery, documentation of the care provided to the patient excluding any time spent in the performance of separately billed services. JODEE Lopez [facility] Admission and Anticipated Discharge Date Admission Date: March 11, 2024 Supervising Physician Co-Signing Physician Notes I have personally performed a history and physical examination on the patient. I have reviewed the advance practitioner's documentation, and I agree with, and take responsibility for the plan of care. 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 Pacemaker explanted March 12 with implantation of wound vac. Telemetry reveals sinus rhythm and sinus bradycardia with PACs. Blood and wound cultures without growth. Antibiotic management as per infectious disease. Monitor telemetry for any significant bradycardia, pauses, or heart block. Continue metoprolol and clopidogrel as ordered. Schedule outpatient wound clinic follow-up. I spent a total of 25 minutes on the date of service in preparation, delivery, and documentation of the care provided to this patient, excluding any time spent in the performance of separately billed services. Per Salcedo DO, [facility] Subjective 03/17/2024: Patient seen and examined in follow up today. Feeling fair. Offers no cardiac concerns. for wound vac dressing change today. Denies any chest pain, pressure, palpitations, shortness of breath, PND, pre-syncope syncope or edema. Labs, vitals, diagnostics, telemetry and documentation reviewed. Telemetry reviewed showing SB rates 56-59. No acute events overnight. Review of Systems Review of Systems: All systems reviewed & are unremarkable except as noted in HPI & below Physical Exam Constitutional: well developed and well nourished; no acute distress Neck: normal visual inspection and trachea midline Cardiovascular: Rate/Rhythm: regular rate and regular rhythm Heart Sounds: normal S1 and normal S2; no murmur Vessels: dorsalis pedis pulses present; no JVD Extremities: no edema Skin: no rashes, warm and dry normal turgor and + wound (left upper chest wall wound vac in place. erythema reduced around site. ) Psychiatric: A+Ox3, euthymic affect Results & Data Vital Signs (Past 12 Hours) Vital Signs Temp Pulse Pulse Pulse Pulse Resp BP 03/17/24 07:27 36.8 C 57 L 14 151/81 H 03/17/24 03:00 36.7 C 64 18 130/67 03/17/24 00:00 65 03/16/24 22:27 36.6 C 63 18 BP Pulse Ox O2 Del Method 03/17/24 07:27 96 Room Air 03/17/24 03:00 97 Room Air 03/17/24 00:00 03/16/24 22:27 158/57 H 97 Room Air Laboratory Results CBC 03/17/24 Range/Units 07:08 WBC 4.15 L (4.8-10.8) K/ul RBC 2.21 L (4.70-6.10) M/uL Hgb 8.2 L (14.0-18.0) g/dl Hct 23.1 L (42.0-52.0) % Plt Count 182 (130-400) K/uL Neut # (Auto) 2.32 (1.40-6.50) K/uL Lymph # (Auto) 1.16 L (1.20-3.40) K/uL [place] # (Auto) 0.53 (0.11-0.59) K/uL Eos # (Auto) 0.04 (0.00-0.50) K/uL Baso # (Auto) 0.04 (0.00-0.20) K/uL Comprehensive Metabolic Panel 03/17/24 Range/Units 07:08 Sodium 135 L (136-145) mmol/L Potassium 4.7 (3.5-5.1) mmol/L Chloride 101 (98-107) mmol/L Carbon Dioxide 28 (21-32) mmol/L BUN 17 (6-23) mg/dl Creatinine 1.02 (0.6-1.4) mg/dl Glucose 107 H (70-99(Fasting)) mg/dl Calcium 8.9 (8.6-10.3) mg/dl Intake and Output 03/16/24 03/17/24 03/17/24 22:59 06:59 14:59 Intake Total 650 / 2140 300 / 2140 100 / 100 Output Total 825 / 2727 950 / 2727 Balance -175 / -587 -650 / -587 100 / 100 Intake: IV 100 / 300 100 / 300 100 / 100 Piperacillin/Tazobactam 4.5 gm 100 / 300 100 / 300 100 / 100 In 100 ml @ 25 mls/hr IV Q8H [facility] Rx#:[id number] Oral 550 / 1840 200 / 1840 Output: Urine 825 / 2725 950 / 2725 Other: Weight 94 kg Weight Measurement Method Built in [facility] (3) CAD (coronary artery disease) Associated angina: without angina Coronary Disease-Associated Artery/Lesion type: [place] artery [place] vs. transplanted heart: [place] heart Qualified Code(s): I25.10 - Atherosclerotic heart disease of [place] coronary artery without angina pectoris
[2024-03-17 11:07] VITALS: BP 155/73; TEMP 97.9; O2SAT 97
[2024-03-17 11:36] VITALS: PULSE 57
--- NOTE | 2024-03-17 12:49 | Hospitalist Progress Note ---
Date of Service March 17, 2024 Assessment & Plan (1) Illness: (2) Acute on chronic anemia: Plan Mikie Leon (Ken) is a 73y/o M with PMHx significant for CAD s/p CABG x 3 [2009], atrial fibrillation [not currently on anticoagulation therapy], HTN, HLD, PVCs, complete heart block s/p dual-chamber pacemaker placement [02/2024], grade II diastolic dysfunction, mild mitral regurgitation, GERD, myelodysplastic syndrome [currently undergoing chemotherapy], refractory cytopenia with multilineage dysplasia, macrocytic anemia [baseline Hgb ~9-10], neutropenia, history of alcohol use disorder and depression/anxiety who presented to the ED for evaluation of multiple constitutional symptoms. Patient was referred to the ED today by Dr. Saurabh Pisano [Hematology/Oncology] after being seen at [facility]. Patient was notably feverish in the office with a temperature of 101.8F. He was also complaining of some shortness of breath, generalized malaise, lightheadedness/dizziness and difficulty with urination. Dr. Pisano was concerned that the patient may have developed an infection and therefore sent him to the ED for further evaluation. Patient is currently undergoing chemotherapy [Vidaza] for management of myelodysplastic syndrome. Pacemaker site Infection S/P pacemaker generator and lead extraction, pocket washout and wound VAC placement on 03/12/[address] Pryor -ECHO: Mild concentric LVH. Left ventricle wall motion is normal. EF 55 to 6 0%. Pacemaker leads were visualized in the right atrium and right ventricle. No evidence of vegetation limitation of this imaging modality. -Blood culture negative to date -Wound culture no growth to date Appreciate cardiology input Has been on daptomycin, Zosyn Appreciate ID input: Discussed with Dr. Vasquez on 03/15/2024: If cultures remain negative, plan to downgrade IV antibiotics to doxycycline 100 mg BID, Keflex 500 mg QID to complete 14-day including inpatient antibiotic days Pain is reasonably controled Was evaluated by the Card today and advised that he can be discharged Needs follow-up with cardiology/wound care on discharge Myelodysplastic Syndrome: Immunocompromised state Patient follows with Dr. Saurabh Pisano Currently undergoing chemotherapy with Vidaza. Receiving biweekly Aranesp injections and weekly G-CSF injection since September 2023. Hold levofloxacin for now Continue acyclovir, posaconazole Will continue his OP medications Acute on Chronic Anemia: Pancytopenia S/P PRBCs Monitor CBC closely ANC [address] Saurabh Pisano today: Recommends to give Neupogen Neutrophil count has been normalized Hb remains stable at 8.2 Hypokalemia Replete and monitor Suspected transfusion reaction Less likely--fever likely due to pacemaker site infection Workup for transfusion reaction reviewed Acute kidney injury Cr back to baseline Monitor renal function Avoid nephrotoxic agents as able Chronic hyponatremia Monitor sodium closely Sodium 135 on 03/17/2024 Chronic alcohol use States his last alcohol drink was 10 to 12 days ago Counseled to quit drinking Hypomagnesemia Replete electrolytes as needed Monitor H/O recurrent syncope with recurrent tachycardia, bradycardia in the past H/O paroxysmal supraventricular tachycardia May need Micra wireless pacemaker placement once infection resolves --Continue metoprolol succinate 25 mg twice a day Tobacco Use Disorder: Smokes ~0.5 pack/day. Smoking cessation encouraged Other Chronic Medical Conditions: CAD S/P CABG Anxiety/depression GERD HTN Prediabetes Continue Plavix, isosorbide, metoprolol, Protonix, thiamine, folic acid, venlafaxine DVT Px: Lovenox SQ Code Status: FULL CODE Will be discharged today Admission and Anticipated Discharge Date Admission Date: March 11, 2024 Subjective 03/17/2024 The patient was seen and examined in telemetry unit He has been feeling much better and denies any significant symptoms He has been ambulating in the room and wants to go home Review of Systems Review of Systems: All systems reviewed and are unremarkable except as noted below Physical Exam Physical Exam: Sitting at the edge of the bed without any acute distress Constitutional: well developed, well nourished and + obese; not ill appearing Eyes: PERRL, conjunctivae normal, anicteric sclerae ENMT: external ear and nose normal, oropharynx normal Neck: trachea midline, no thyromegaly Respiratory: no respiratory distress Auscultation: lungs clear to auscultation bilaterally Cardiovascular: Rate/Rhythm: regular rate and regular rhythm; not tachycardic Heart Sounds: normal S1 and normal S2; no murmur Extremities: no edema Gastrointestinal (Abdomen): Inspection/Auscultation: normal bowel sounds; abdomen not distended Percussion/Palpation: abdomen soft; abdomen nontender Musculoskeletal: Wound VAC is placed left upper chest wall Neurologic: normal touch/pain/proprioception and moves all extremities; no focal motor deficits Psychiatric: A+Ox3, euthymic affect Lymphatic: no cervical or axillary lymphadenopathy Results & Data Results & Data Vital Signs (Past 12 Hours) Vital Signs Temp Pulse Pulse Pulse Pulse Resp BP 03/17/24 11:11 36.6 C 64 58 L 63 14 155/73 H 03/17/24 11:04 36.6 C 58 L 14 155/73 H 03/17/24 08:00 57 L 03/17/24 07:27 36.8 C 57 L 14 151/81 H 03/17/24 03:00 36.7 C 64 18 130/67 BP Pulse Ox O2 Del Method 03/17/24 11:11 158/57 H 97 03/17/24 11:04 97 Room Air 03/17/24 08:00 03/17/24 07:27 96 Room Air 03/17/24 03:00 97 Room Air Laboratory Results Short CBC 03/17/24 Range/Units 07:08 WBC 4.15 L (4.8-10.8) K/ul Hgb 8.2 L (14.0-18.0) g/dl Hct 23.1 L (42.0-52.0) % Plt Count 182 (130-400) K/uL BMP 03/17/24 07:08 Sodium 135 L Potassium 4.7 Chloride 101 Carbon Dioxide 28 BUN 17 Creatinine 1.02 Glucose 107 H Calcium 8.9 Medications Administered Current Inpatient Medications Acetaminophen (Acetaminophen 325 Mg Tab) 650 mg PO Q4H PRN PRN Reason: Pain or Fever Stop: 04/10/24 14:08 Last Admin: 03/16/24 09:29 Dose: 650 mg Acyclovir (Acyclovir 400 Mg Tab) 400 mg PO BID ANTONI Stop: 04/10/24 20:59 Last Admin: 03/17/24 09:01 Dose: 400 mg Clopidogrel Bisulfate (Clopidogrel Bisulfate 75 Mg Tab) 75 mg PO DAILY ANTONI Stop: 04/11/24 08:59 Last Admin: 03/17/24 09:00 Dose: 75 mg Enoxaparin Sodium (Enoxaparin Inj 30 Mg/0.3 Ml Syr) 30 mg SQ QAM ANTONI Stop: 04/12/24 08:59 Last Admin: 03/17/24 09:00 Dose: 30 mg Folic Acid (Folic Acid 400 Mcg Tab) 400 mcg PO QAM ANTONI Stop: 04/11/24 08:59 Last Admin: 03/17/24 09:00 Dose: 400 mcg Heparin Sodium (Beef Lung) (Heparin 10 Unit/Ml 5 Ml Flush) 5 ml FLUSH PRN PRN PRN Reason: Flush Stop: 04/16/24 11:42 Piperacillin Sod/Tazobactam Sod (Zosyn) 4.5 gm in 100 mls @ 25 mls/hr IV Q8H ANTONI; Protocol Stop: 03/21/24 11:59 Last Infusion: 03/17/24 09:10 Dose: Infused Daptomycin 325 mg/ Syringe 6.5 mls @ 3.25 mls/min IV Q24H ANTONI; Protocol Stop: 03/21/24 08:59 Last Admin: 03/17/24 09:34 Dose: 3.25 mls/min Isosorbide Mononitrate (Isosorbide [place] Extended Rel 30 Mg Tabcr) 30 mg PO DAILY ANTONI Stop: 04/11/24 08:59 Last Admin: 03/17/24 09:01 Dose: 30 mg Lactobacillus Acidophilus (Advanced Probiotic 625 Mg Capsule) 1,250 mg PO DAILY [facility] Stop: 04/10/24 14:08 Last Admin: 03/17/24 09:03 Dose: 1,250 mg Latanoprost (Latanoprost 0.005% Op Soln 2.5 Ml Btl) 1 drops OPB PM ANTONI Stop: 04/10/24 20:59 Last Admin: 03/16/24 20:22 Dose: 1 drops Magnesium Chloride (Magnesium Chloride W/Calcium 64mg Delayed Rel Tab) 64 mg PO BID ANTONI Stop: 04/11/24 20:59 Last Admin: 03/17/24 09:01 Dose: 64 mg Magnesium Hydroxide (Magnesium Hydroxide Susp 30 Ml Udc) 30 ml PO Q12H PRN PRN Reason: Constipation Stop: 04/10/24 14:08 Metoprolol Succinate (Metoprolol Succ 25mg Ext Rel Tab) 25 mg PO BID ANTONI Stop: 04/10/24 20:59 Last Admin: 03/17/24 09:01 Dose: 25 mg Multivitamins (Multivitamin Tab) 1 tab PO DAILY ANTONI Stop: 04/11/24 08:59 Last Admin: 03/17/24 09:00 Dose: 1 tab Ondansetron HCl (Ondansetron Inj 2 Mg/Ml 2 Ml Vial) 4 mg IV Q6H PRN PRN Reason: Nausea Stop: 04/10/24 14:08 Last Admin: 03/12/24 00:04 Dose: 4 mg Oxycodone HCl (Oxycodone Hcl Ir 5 Mg Tab (Immediate Release)) 5 mg PO Q4H PRN PRN Reason: Pain Stop: 03/25/24 23:39 Last Admin: 03/17/24 11:08 Dose: 5 mg Pantoprazole Sodium (Pantoprazole 40 Mg Tab) 40 mg PO QAM [facility] Stop: 04/11/24 08:59 Last Admin: 03/17/24 09:01 Dose: 40 mg Polyethylene Glycol (Polyethylene (Miralax) 17 Gm Pack) 17 gm PO DAILY PRN PRN Reason: Constipation Stop: 04/10/24 14:08 Posaconazole (Posaconazole) 3 each PO DAILY ANTONI Stop: 04/11/24 16:14 Last Admin: 03/17/24 09:02 Dose: 3 each Thiamine HCl (Thiamine Hcl 100 Mg Tab) 100 mg PO QAM ANTONI Stop: 04/11/24 08:59 Last Admin: 03/17/24 09:01 Dose: 100 mg Venlafaxine HCl (Venlafaxine Hcl Xr 150 Mg Capxr) 150 mg PO DAILY ANTONI Stop: 04/11/24 08:59 Last Admin: 03/17/24 09:01 Dose: 150 mg
--- NOTE | 2024-03-18 09:25 | Discharge Summary ---
Date of Service March 18, 2024 Admission HPI Per Admitting Provider Mikie "Urban Leon is a 73y/o M with PMHx significant for CAD s/p CABG x 3 [2009], atrial fibrillation, PVCs, complete heart block s/p dual-chamber pacemaker placement [02/2024], grade II diastolic dysfunction, mild mitral regurgitation, GERD, myelodysplastic syndrome [currently undergoing chemotherapy], refractory cytopenia with multilineage dysplasia, macrocytic anemia [baseline Hgb ~9-10], neutropenia and depression/anxiety who presented to the ED for evaluation of multiple constitutional symptoms. History obtained from patient and associated chart review. Patient was referred to the ED today by Dr. Saurabh Pisano [Hematology/Oncology] after being seen at [facility]. Patient was notably feverish in the office with a temperature of 101.8F. He was also complaining of some shortness of breath, generalized malaise, lightheadedness/dizziness and difficulty with urination. Dr. Pisano was concerned that the patient may have developed an infection and therefore sent him to the ED for further evaluation. Patient is currently undergoing chemotherapy [Vidaza] for management of myelodysplastic syndrome. He has also been receiving biweekly Aranesp injections since September 2023 in addition to weekly granulocyte colony-stimulating factor (G-CSF) injections, which were also started in September 2023. Patient reports that he has been feeling more fatigued for the past 10 days or so. Of note, he had a dual-chamber pacemaker placed on 03/03/[address] Mosley for treatment of a complete heart block. He has noticed some increased redness around the bandage covering his pacemaker site (left upper chest wall), however he believes he may be allergic to the adhesive. He has not noticed any drainage from the site but he has not yet removed the bandage to see what is going on underneath. He was supposed to have the bandage removed today at the [facility]. In addition to the fatigue, the patient has also been experiencing intermittent chills/body aches as well as "feeling feverish" however he did not previously take his temperature at home. He has also been having some headaches here and there. He has a chronic cough at baseline that has been worked up as an outpatient however no definitive diagnosis has come about. However he has been feeling more short of breath over the past couple days, especially when he experiences "coughing fits." He does not use oxygen at baseline however he does smoke about half a pack of cigarettes per day, which he has been doing so for approximately 20 years. He has not been drinking "for a while," however he did previously drink 4-6 beers a day. He notes that his cough can sometimes be productive of clear to whitish sputum. He has not noticed an increase in the amount of sputum production or discoloration of his sputum recently. He has also been dealing with some lightheadedness/dizziness as well but denies any recent falls or trauma. No visual changes that he recalls. His appetite has been significantly reduced lately since starting the chemotherapy however he is trying to hydrate well. He does have a port in his right upper chest wall. He has not noticed any surrounding erythema around this site or any drainage from the site either. He denies any chest pain, abdominal pain or diarrhea. No nausea or vomiting. Reports he was constipated a few weeks ago but that has since reso lved after using Miralax and increasing his daily water intake. He does however report some urinary flow issues lately. Mentions that his urine does not typically flow at a constant rate, but rather stops/starts intermittently. He denies any known history of BPH. No blood noted in either his urine nor stool. Thankfully it is not painful for him to urinate. He has not noticed any recent increase in his urinary frequency. Postvoid residual screening in the ED was unremarkable. Admission Exam Per Admitting Provider Physical Exam: General: WD/WN, vitals as above, NAD, sitting up in bed, very pleasant, conversing appropriately. A+Ox3, euthymic affect. HEENT: Normocephalic, atraumatic. PERRL, conjunctivae normal, anicteric sclerae. External ear and nose normal, oropharynx slightly dry. Respiratory: Normal respiratory effort, lungs clear to auscultation, no wheeze, rales, rhonchi. No accessory muscle use. Cardiovascular: Regular rate, rhythm, no murmur, normal peripheral pulses, trace BLE edema. Vessels: No JVD. Abdomen/GI: Normal bowel sounds, soft, nontender, no hepatosplenomegaly. Extremities/Musculoskeletal: No cyanosis or clubbing, extremities motor strength intact, moves all extremities. Neurologic: EOMI, no focal deficits, CN's II-XI not formally tested but appear grossly intact bilaterally. Skin: R-sided chest port without erythema/drainage. Bandage covering the pacemaker insertion site on the L upper chest wall with some surrounding erythema. Principal Diagnosis Pacemaker site infection,MDS Discharge Exam Sitting at the edge of the bed without any acute distress Constitutional well developed, well nourished and + obese; not ill appearing Eyes PERRL, conjunctivae normal, anicteric sclerae ENMT external ear and nose normal, oropharynx normal Neck trachea midline, no thyromegaly Respiratory no respiratory distress Auscultation: lungs clear to auscultation bilaterally Cardiovascular Rate/Rhythm: regular rate and regular rhythm; not tachycardic Heart Sounds: normal S1 and normal S2; no murmur Extremities: no edema Gastrointestinal (Abdomen) Inspection/Auscultation: normal bowel sounds; abdomen not distended Percussion/Palpation: abdomen soft; abdomen nontender Neurologic normal touch/pain/proprioception and moves all extremities; no focal motor deficits Psychiatric A+Ox3, euthymic affect Lymphatic no cervical or axillary lymphadenopathy Discharge Data Allergies Allergy/AdvReac Type Severity Reaction Status Date / Time fluvastatin [From Lescol] AdvReac Joint Pain Verified 03/11/24 12:06 simvastatin [From Zocor] AdvReac Joint Pain Verified 03/11/24 12:06 Consultations 03/11/24 11:28 ED Decision to Admit Stat 03/11/24 16:49 Consult Cardiology Routine 03/11/24 16:53 Consult Infectious Diseases Routine Procedures Performed Operation Date: 03/12/24 08:00 Actual Procedures p Lead, Extraction Dual Pacing - Renetta Mosley DO Ordered Studies 03/12/24 08:15 EP Lab Images for PACS ONCE Hospital Course (1) Illness: (2) Acute on chronic anemia: Yordan Leon (Ken) is a 73y/o M with PMHx significant for CAD s/p CABG x 3 [2009], atrial fibrillation [not currently on anticoagulation therapy], HTN, HLD, PVCs, complete heart block s/p dual-chamber pacemaker placement [02/2024], grade II diastolic dysfunction, mild mitral regurgitation, GERD, myelodysplastic syndrome [currently undergoing chemotherapy], refractory cytopenia with multilineage dysplasia, macrocytic anemia [baseline Hgb ~9-10], neutropenia, history of alcohol use disorder and depression/anxiety who presented to the ED for evaluation of multiple constitutional symptoms. Patient was referred to the ED today by Dr. Saurabh Pisano [Hematology/Oncology] after being seen at [facility]. Patient was notably feverish in the office with a temperature of 101.8F. He was also complaining of some shortness of breath, generalized malaise, lightheadedness/dizziness and difficulty with urination. Dr. Pisano was concerned that the patient may have developed an infection and therefore sent him to the ED for further evaluation. Patient is currently undergoing chemotherapy [Vidaza] for management of myelodysplastic syndrome. Pacemaker site Infection S/P pacemaker generator and lead extraction, pocket washout and wound VAC placement on 03/12/[address] Pryor -ECHO: Mild concentric LVH. Left ventricle wall motion is normal. EF 55 to 60%. Pacemaker leads were visualized in the right atrium and right ventricle. No evidence of vegetation limitation of this imaging modality. -Blood culture negative to date -Wound culture no growth to date Appreciate cardiology input Has been on daptomycin, Zosyn Appreciate ID input: Discussed with Dr. Vasquez on 03/15/2024: If cultures remain negative, plan to downgrade IV antibiotics to doxycycline 100 mg BID, Keflex 500 mg QID to complete 14-day including inpatient antibiotic days Pain is reasonably controled Was evaluated by the Card today and advised that he can be discharged Needs follow-up with cardiology/wound care on discharge Myelodysplastic Syndrome: Immunocompromised state Patient follows with Dr. Saurabh Pisano Currently undergoing chemotherapy with Vidaza. Receiving biweekly Aranesp injections and weekly G-CSF injection since September 2023. Hold levofloxacin for now Continue acyclovir, posaconazole Will continue his OP medications Acute on Chronic Anemia: Pancytopenia S/P PRBCs Monitor CBC closely ANC [address] Saurabh Pisano today: Recommends to give Neupogen Neutrophil count has been normalized Hb remains stable at 8.2 Hypokalemia Replete and monitor Suspected transfusion reaction Less likely--fever likely due to pacemaker site infection Workup for transfusion reaction reviewed Acute kidney injury Cr back to baseline Monitor renal function Avoid nephrotoxic agents as able Chronic hyponatremia Monitor sodium closely Sodium 135 on 03/17/2024 Chronic alcohol use States his last alcohol drink was 10 to 12 days ago Counseled to quit drinking Hypomagnesemia Replete electrolytes as needed Monitor H/O recurrent syncope with recurrent tachycardia, bradycardia in the past H/O paroxysmal supraventricular tachycardia May need Micra wireless pacemaker placement once infection resolves --Continue metoprolol succinate 25 mg twice a day Tobacco Use Disorder: Smokes ~0.5 pack/day. Smoking cessation encouraged Other Chronic Medical Conditions: CAD S/P CABG Anxiety/depression GERD HTN Prediabetes Continue Plavix, isosorbide, metoprolol, Protonix, thiamine, folic acid, venlafaxine DVT Px: Lovenox SQ Code Status: FULL CODE Will be discharged today Total Time Total Time Spent Total Time Spent (In Minutes): 40 minutes Discharge Plan Discharge Items Patient Disposition: Home - Home Health Services Reason For Visit: ANEMIA, SICK SYMPTOMS Discharge Diagnosis: Pacemaker site infection,MDS Condition on Discharge: Fair Activity: Resume your previous activity Non-emergency contact: Primary Care Provider Call non-emergency contact if: you have any medication questions and your symptoms worsen Follow-up/Referrals: [facility] [Other] - 03/24/24 1:00 pm Saurabh Pisano MD [Surgeon] - (Dr Pisano's office will contact you for an appointment. They are aware of your discharge.) Ajit Parekh DO [Primary Care Provider] - (Date & Time 03/24/2024 9:00 AM Provider Ajit Parekh DO Department [facility] ) Diet: Heart Healthy Addtl Attending Provider Instructions: Please take precautions to avoid falls Finish the course of antibiotic Please keep appointments with the healthcare providers Care of wound VAC as per recommendation by the wound care nurse Pending Studies at Discharge: No Stand-Alone Forms: My Hurricane Party, Smoking Cessation Medications and DC Order Prescriptions: New magnesium chloride [Mag 64] 64 mg Tablet,Delayed Release (Dr/Ec) 64 mg PO BID Qty: 60 0RF Advanced Probiotic 625 mg (10 billion cell) Capsule 1 cap PO DAILY Qty: 30 0RF doxycycline hyclate 100 mg capsule 100 mg PO BID 9 Days Qty: 18 0RF cephalexin 500 mg capsule 500 mg PO Q6H 9 Days Qty: 36 0RF Continued multivitamin Tablet 1 tab PO DAILY latanoprost 0.005 % Drops 1 drp OPHTHALMIC (EYE) PM Rx Instructions: BOTH EYES clopidogrel 75 mg Tablet 75 mg PO DAILY rosuvastatin 20 mg Tablet 20 mg PO DAILY sildenafil 50 mg tablet 10 mg PO DAILY PRN (Reason: Other) Rx Instructions: Take 1 Tablet by mouth as needed. venlafaxine 150 mg capsule,extended release 24hr 150 mg PO DAILY benzonatate 100 mg Capsule 100 mg PO TID PRN (Reason: cough) Qty: 30 0RF pantoprazole 40 mg Tablet,Delayed Release (Dr/Ec) 40 mg PO QAM Qty: 30 1RF thiamine HCl (vitamin B1) 100 mg Tablet 100 mg PO QAM Qty: 30 0RF folic acid 400 mcg Tablet 400 mcg PO QAM Qty: 30 0RF metoprolol succinate [Toprol XL] 25 mg tablet extended release 24 hr 25 mg PO BID Qty: 180 3RF acyclovir 400 mg tablet 400 mg PO BID prochlorperazine maleate 10 mg tablet 10 mg PO Q6H PRN (Reason: nausea/vomiting) levofloxacin 500 mg tablet 500 mg PO DAILY posaconazole 100 mg tablet,delayed release (DR/EC) 300 mg PO DAILY isosorbide mononitrate 30 mg tablet extended release 24 hr 30 mg PO DAILY Discharge Orders: Discharge Order (Routine); Ordered 03/17/24 Ordered By: Johnathan Adams/Other Patient Handouts: Nutrition for Wound Healing Admission Data Admit Date/Time: 03/11/24 11:36 Attending Provider: Johnathan Funk Admit Provider: Denver Multani Primary Care Provider: Ajit Parekh Other Providers: Alvaro Vila; [facility]; Federico Rae; Renetta Mosley; Charlie Vasquez; Tamera Hughes; Per Salcedo Other Interventions: Discharge Summary Assessment (RN) Last Done: 03/17/24 11:11
== END 2024-03-17 14:23 | disposition home health service (06) | DRG 260 ==
LOC: ED 09:33 → 2W 11:36 → SUATTDRO 11:36 → 2W 13:35 → 2S 03-12 10:27
DX: D46.9 Myelodysplastic syndrome, unspecified; E83.42 Hypomagnesemia; Z79.02 Long term (current) use of antithrombotics/antiplatelets; Y71.2 Prosthetic and other implants, materials and accessory cardiovascular devices associated with adverse incidents; Z95.1 Presence of aortocoronary bypass graft; D84.9 Immunodeficiency, unspecified; D53.9 Nutritional anemia, unspecified; F41.9 Anxiety disorder, unspecified; E78.5 Hyperlipidemia, unspecified; I48.91 Unspecified atrial fibrillation; D69.6 Thrombocytopenia, unspecified; I47.10 Supraventricular tachycardia, unspecified; F32.A Depression, unspecified; D61.810 Antineoplastic chemotherapy induced pancytopenia; F17.210 Nicotine dependence, cigarettes, uncomplicated; Z79.899 Other long term (current) drug therapy; Z88.8 Allergy status to other drugs, medicaments and biological substances; Z95.0 Presence of cardiac pacemaker; Z86.79 Personal history of other diseases of the circulatory system; K21.9 Gastro-esophageal reflux disease without esophagitis; I25.10 Atherosclerotic heart disease of native coronary artery without angina pectoris; T82.7XXA Infection and inflammatory reaction due to other cardiac and vascular devices, implants and grafts, initial encounter; E87.6 Hypokalemia; I10 Essential (primary) hypertension; I34.0 Nonrheumatic mitral (valve) insufficiency; E87.1 Hypo-osmolality and hyponatremia